=== PATIENT | male | born 1930 | race Hispanic/Latino ===

== ENCOUNTER 2017-05-12 12:21 | Outpatient (CLI) | payer MEDICARE, OTHER | END 2017-05-12 12:22 | disposition home or self-care (01) | LOC: VAS 12:21 | PROVIDERS: ATTEND Internal Medicine | DX: M79.661 Pain in right lower leg (principal); M79.662 Pain in left lower leg; M79.89 Other specified soft tissue disorders; I10 Essential (primary) hypertension | CPT/HCPCS: 93970 ==

== ENCOUNTER 2017-08-07 13:48 | Inpatient (IN) | payer MEDICARE, OTHER ==
--- NOTE | 2017-08-07 16:40 | Emergency Department Report ---
HPI - General Chief Complaint: Skin/Abscess/Foreign Body Time Seen by Provider: 08/07/17 16:21 - HPI HPI: Room 4 The patient is an 87-year-old male presenting with a chief complaint of skin rash. The patient states she's had a rash on his buttocks for the past 6 months. 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 The patient states she came in this morning because he noticed bleeding from the rash. Patient only complains of pain at his buttocks. Patient denies any fever. Also of note the patient states today he thought he "saw something" and when he went to reach for generalized "it wasn't there." Patient is unable to give specifics of what he thought he saw a little repeats "something." The patient states his only new medications include pain medication and prophylactic antibiotics from his recent left rotator cuff surgery. Patient is alert and oriented 4. Patient denies any other types of pain Location: Buttocks Duration: 6 Months, see above Quality: Pain Severity: Moderate Modifying factors: [see above] Context: [see above] Mode of transportation: Unknown ED Past Medical Hx - Past Medical History Hx Hypertension: Yes Additional medical history: PROSTATE CA STATUS POST RADIATION. Myeloproliferative disorder - Surgical History Hx Appendectomy: Yes Additional Surgical History: BILATERAL ROTATOR CUFF REPAIR - Family History Family history: no significant - Social History Smoking Status: Never Smoker Substance Use Type: None - Medications Home Medications: Home Medications Medication Instructions Recorded Confirmed Last Taken Type Carvedilol [Coreg] 25 mg PO BID 12/29/16 12/29/16 12/28/16 History Rosuvastatin (Nf) [Crestor] 5 mg PO DAILY 12/29/16 12/29/16 12/28/16 History Tamsulosin [Flomax] 0.4 mg PO QDAY 12/29/16 12/29/16 12/28/16 History Telmisartan [Micardis] 80 mg PO QDAY 12/29/16 12/29/16 12/28/16 History Aspirin EC [Aspirin Enteric Coated 325 mg PO QDAY #30 tablet. 12/30/16 Unknown Rx TAB] ED Review of Systems ROS: Stated complaint: SORES ON BUTTOCKS Other details as noted in HPI Constitutional: denies: fever Eyes: denies: eye pain ENT: denies: ear pain Cardiovascular: denies: chest pain Gastrointestinal: denies: abdominal pain Genitourinary: denies: dysuria Musculoskeletal: denies: back pain Skin: rash Neurological: denies: headache Psychiatric: visual hallucinations Physical Exam - Physical Exam Vital Signs: Vital Signs 08/07/17 08/07/17 08/07/17 15:24 15:30 15:45 Pulse Rate 72 70 69 Respiratory 12 15 8 L Rate Blood Pressure 145/60 141/55 O2 Sat by Pulse 99 100 100 Oximetry 08/07/17 16:00 Pulse Rate 72 Respiratory 10 L Rate Blood Pressure 137/60 O2 Sat by Pulse 99 Oximetry Physical Exam: GENERAL: The patient is well-developed well-nourished male lying on stretcher not appearing to be in acute distress. [] HEENT: Normocephalic. Atraumatic. Extraocular motions are intact. Patient has moist mucous membranes. NECK: Supple. No meningitic signs are noted. Trachea midline CHEST/LUNGS: Clear to auscultation. There is no respiratory distress noted. HEART/CARDIOVASCULAR: Regular. There is no tachycardia. There is no gallop rub or murmur. ABDOMEN: Abdomen is soft, nontender. Patient has normal bowel sounds. There is no abdominal distention. SKIN: There is a rash consistent with intertriginous candidiasis superimposed on a stage I sacral decubitus sore. There is no diaphoresis. NEURO: The patient is awake, alert, and oriented. The patient is cooperative. The patient has no focal neurologic deficits. The patient has normal speech. Cranial nerves II through XII grossly intact MUSCULOSKELETAL: The left shoulder is currently in an immobilizer secondary to recent surgery ED Course Vital Signs 08/07/17 08/07/17 08/07/17 15:24 15:30 15:45 Pulse Rate 72 70 69 Respiratory 12 15 8 L Rate Blood Pressure 145/60 141/55 O2 Sat by Pulse 99 100 100 Oximetry 08/07/17 16:00 Pulse Rate 72 Respiratory 10 L Rate Blood Pressure 137/60 O2 Sat by Pulse 99 Oximetry ED Medical Decision Making - Lab Data Result diagrams: 08/07/17 16:40 08/07/17 16:40 Laboratory Tests 08/07/17 08/07/17 08/07/17 16:40 16:40 16:40 WBC 2.3 L RBC 3.43 L Hgb 10.3 L Hct 30.8 L MCV 90 MCH 30 MCHC 33 RDW 16.6 H Plt Count 217 PT 14.4 INR 1.06 APTT 35.7 Sodium 140 Potassium 4.9 Chloride 99.1 Carbon Dioxide 29 Anion Gap 17 BUN 32 H Creatinine 0.9 Estimated GFR > 60 BUN/Creatinine Ratio 36 Glucose 120 H Calcium 8.8 Total Bilirubin 0.80 AST 24 ALT 16 Alkaline Phosphatase 68 Total Creatine Kinase 145 CK-MB (CK-2) 8.2 H CK-MB (CK-2) Rel Index 5.6 H Troponin T 0.050 H Total Protein 6.6 Albumin 3.7 L Albumin/Globulin Ratio 1.3 Triglycerides 75 Cholesterol 122 LDL Cholesterol Direct 73 HDL Cholesterol 34 L Cholesterol/HDL Ratio 3.58 - EKG Data -: EKG Interpreted by Me EKG shows normal: sinus rhythm Rate: normal - EKG Data When compared to previous EKG there are: previous EKG unavailable Interpretation: nonspecific ST-T wave andrzej (T-wave inversion in lead V2, 3, aVF, biphasic in lead V3) - Radiology Data Radiology results: report reviewed (CT head), image reviewed (CT head) FINAL REPORT EXAM: CT HEAD/BRAIN WO CON HISTORY: transient hallucinations TECHNIQUE: Standard unenhanced CT of the head at 5.0 millimeter axial increments. PRIORS: None. FINDINGS: The ventricular system is normal in size and configuration. There is moderate cerebral atrophy. There is no evidence for mass lesion, mass effect, midline shift, acute intracranial hemorrhage, or acute ischemia/ infarction. No evidence for acute skull fracture is seen. No abnormality in the overlying scalp soft tissues is seen. Visualized paranasal sinuses are clear. A few of the right mastoid air cells are opacified. IMPRESSION: Moderate cerebral atrophy. No acute intracranial process noted. Transcribed By: [facility] Dictated By: JULIANNE CEE MD Electronically Authenticated By: JULIANNE CEE MD Signed Date/Time: 08/07/171346 DD/ 46 - Differential Diagnosis intertriginous candidiasis, sacral decubitus ulcer, ICH, medication reactio Critical care attestation.: If time is entered above; I have spent that time in minutes in the direct care of this critically ill patient, excluding procedure time. ED Disposition Clinical Impression: Intertriginous candidiasis, Decubitus ulcer of sacral region, Elevated troponin , Dehydration, Visual hallucination Disposition: DC- OP ADMIT IP TO THIS HOSP Is pt being admited?: Yes Does the pt Need Aspirin: Yes Condition: Stable Referrals: PRIMARY CARE,MD [Primary Care Provider] - 3-5 Days Time of Disposition: 19:09 (hospitalist paged (Dr Toledo))
[2017-08-07 17:12] LABS: Hematocrit 30.8 % (35.5-45.6); Hemoglobin 10.3 gm/dl (11.8-15.2); Mean Corpuscular HGB Conc 33 % (32-34); Mean Corpuscular Hemoglobin 30 pg (28-32); Mean Corpuscular Volume 90 fl (84-94); Platelet Count 217 K/mm3 (140-440); Red Blood Count 3.43 M/mm3 (3.65-5.03); Red Cell Distribution Width 16.6 % (13.2-15.2)
[2017-08-07 17:23] LABS: White Blood Count 2.3 K/mm3 (4.5-11.0)
[2017-08-07 17:27] LABS: Creatine Kinase MB 8.2 ng/mL (0.0-4.0)
[2017-08-07 17:29] LABS: Alanine Aminotransferase 16 units/L (7-56); Albumin 3.7 g/dL (3.9-5); Albumin/Globulin Ratio 1.3 %; Alkaline Phosphatase 68 units/L (35-129); Anion Gap 17 mmol/L; BUN/Creatinine Ratio 36; Blood Urea Nitrogen 32 mg/dL (9-20); Calcium 8.8 mg/dL (8.4-10.2); Carbon Dioxide 29 mmol/L (22-30); Chloride 99.1 mmol/L (98-107); Creatine Kinase 145 units/L (55-170); Glucose 120 mg/dL (75-100); Potassium 4.9 mmol/L (3.6-5.0); Sodium 140 mmol/L (137-145); Total Protein 6.6 g/dL (6.3-8.2)
[2017-08-07 17:37] LABS: INR 1.06 (0.87-1.13)
[2017-08-07 17:38] LABS: Partial Thromboplastin Time 35.7 Sec. (24.2-36.6)
[2017-08-07 17:41] LABS: Cholesterol 122 mg/dL (50-199); HDL Cholesterol 34 mg/dL (40-59); LDL Cholesterol,Direct 73 mg/dL (50-130); Triglycerides 75 mg/dL (2-149)
--- NOTE | 2017-08-07 17:50 | Cat Scan Report ---
FINAL REPORT EXAM: CT HEAD/BRAIN WO CON HISTORY: transient hallucinations TECHNIQUE: Standard unenhanced CT of the head at 5.0 millimeter axial increments. PRIORS: None. FINDINGS: The ventricular system is normal in size and configuration. There is moderate cerebral atrophy. There is no evidence for mass lesion, mass effect, midline shift, acute intracranial hemorrhage, or acute ischemia/ infarction. No evidence for acute skull fracture is seen. No abnormality in the overlying scalp soft tissues is seen. Visualized paranasal sinuses are clear. A few of the right mastoid air cells are opacified. IMPRESSION: Moderate cerebral atrophy. No acute intracranial process noted.
[2017-08-07 18:07] LABS: Basophils % (Manual) 0 % (0.0-1.8); Blastocytes % (Manual) 0 %; Eosinophils % (Manual) 0 % (0.0-4.3)
[2017-08-07 18:08] LABS: Anisocytosis 2+; Large Platelets Few; Platelet Estimate Consistent w Auto
[2017-08-07 18:09] LABS: Diff Status Complete; Elliptocytes Few; Ovalocytes Rare
[2017-08-07] MEDS ORDERED: NACL 0.9% 1000 ML 1,000 ML IV ONE (18:28)
[2017-08-07] MEDS ORDERED: ASPIRIN PO ONE (18:53)
[2017-08-07 20:27] LABS: Bilirubin,Urine NEG (Negative); Blood,Urine SM (Negative); Ketones,Urine NEG (Negative); Leukocyte Esterase,Urine NEG (Negative); Mucus,Urine FEW /HPF; Nitrite,Urine NEG (Negative); Urobilinogen,Urine < 2.0 mg/dL (<2.0)
[2017-08-07] MEDS ORDERED: MILK OF MAGNESIA PO PRN (22:52)
[2017-08-07] MEDS ORDERED: PERCOCET 5/325 PO PRN (22:52)
[2017-08-07] MEDS ORDERED: TYLENOL PO PRN (22:52)
[2017-08-07] MEDS ORDERED: DULCOLAX PR PRN (22:52)
[2017-08-07] MEDS ORDERED: ZOFRAN IV PRN (22:52)
--- NOTE | 2017-08-07 22:55 | History and Physical Report ---
History of Present Illness Date of examination: 08/07/17 Date of admission: 08/07/17 19:45 History of present illness: 87-year-old man with a history of myeloproliferative disease, hypertension, prostate cancer, status post rotator cuff surgery 1 week ago because emergency room because he had a rash in groin and buttock area. He was found to have elevated troponin and is being admitted for further workup patient is asymptomatic Review Of Systems: Constitutional: no weight loss Ears, eyes, nose, mouth and throat: no nasal congestion, no nasal discharge, no sinus pressure, blurry vision, diplopia Neck: No neck pain or rigidity. Cardiovascular: no chest pain, orthopnea, palpitations Respiratory: No shortness of breath, cough Gastrointestinal: no abdominal pain, hematochezia Genitourinary : no dysuria, frequency , hematuria Musculoskeletal: no muscle ache Integumentary: no rash, no pruritis Neurological: no parathesias, focal weakness Endocrine: no cold or heat intolerance, no polyuria or polydipsia Hematologic/Lymphatic: no easy bruising, no easy bleeding, no gland swelling Allergic/Immunologic: no urticaria, no angioedema. PAST MEDICAL HISTORY:myeloproliferative disease, hypertension, prostate cancer, PAST SURGICAL HISTORY: Rotator cuff 2, appendicectomy FAMILY HISTORY: Hypertension SOCIAL HISTORY: Denies alcohol, tobacco, drugs Medications and Allergies Allergies Allergy/AdvReac Type Severity Reaction Status Date / Time No Known Allergies Allergy Verified 12/29/16 08:48 Home Medications Medication Instructions Recorded Confirmed Last Taken Type Carvedilol [Coreg] 25 mg PO BID 12/29/16 08/07/17 12/28/16 History Rosuvastatin (Nf) [Crestor] 5 mg PO DAILY 12/29/16 08/07/17 12/28/16 History Tamsulosin [Flomax] 0.4 mg PO QDAY 12/29/16 08/07/17 12/28/16 History Telmisartan [Micardis] 80 mg PO QDAY 12/29/16 08/07/17 12/28/16 History Amlodipine Besylate [Norvasc] 5 mg PO QDAY 08/07/17 08/07/17 Unknown History Aspirin [Adult Low Dose Aspirin EC] 81 mg PO DAILY 08/07/17 08/07/17 Unknown History Ketorolac [Toradol] 10 mg PO BID PRN 08/07/17 08/07/17 Unknown History Multivit-Min/FA/Lycopen/Lutein 1 each PO QDAY 08/07/17 08/07/17 Unknown History [Centrum Silver Men Tablet] traMADol [Ultram 50 MG tab] 50 mg PO Q4HR PRN 08/07/17 08/07/17 Unknown History Miconazole 2% [Monistat-Derm] 1 applic TP Q12HR #1 tube 08/09/17 Unknown Rx Active Meds: Active Medications Acetaminophen (Tylenol) 650 mg PO Q4H PRN PRN Reason: Pain MILD(1-3)/Fever >100.5/GRIFFITHS Bisacodyl (Dulcolax) 10 mg MD QDAY PRN PRN Reason: Constipation unrelieved by MOM Sodium Chloride (Nacl 0.9% 1000 Ml) 1,000 mls @ 125 mls/hr IV ONCE ONE Stop: 08/08/17 02:27 Last Admin: 08/07/17 19:03 Dose: 125 mls/hr Sodium Chloride (Nacl 0.45% 1000 Ml) 1,000 mls @ 75 mls/hr IV DIRECT DANNIE Magnesium Hydroxide (Milk Of Magnesia) 30 ml PO Q4H PRN PRN Reason: Constipation Ondansetron HCl (Zofran) 4 mg IV Q8H PRN PRN Reason: N/V unrelieved by Reglan Oxycodone/Acetaminophen (Percocet 5/325) 1 tab PO Q6H PRN PRN Reason: Pain, Moderate (4-6) Exam - Physical Exam Narrative exam: Gen. appearance: Patient lying in bed in no acute distress HEENT: Normocephalic/atraumatic, pupils equal round reactive to light, extra alkaline movement intact, no scleral icterus, no JVD or thyromegaly or nodule, neck is supple, mucous membrane moist, no erythema or exudate Heart: S1-S2, regular rate and rhythm Lungs: Clear to auscultation bilateral breathing comfortable Abdomen: Positive bowel sounds, nontender, nondistended, no organomegaly Extremities: No edema, cyanosis, clubbing Neuro:: Oriented 3 , cranial nerves II-12 intact, speech, motor intact Skin: No rash, nodules, warm dry - Constitutional Vitals: Temp Pulse Resp BP Pulse Ox 79 17 151/58 98 08/07/17 20:30 08/07/17 20:30 08/07/17 20:30 08/07/17 20:30 Results - Labs CBC & Chem 7: 08/08/17 04:28 08/08/17 04:28 Labs: Abnormal lab results 08/07/17 08/07/17 08/07/17 Range/Units 14:05 16:40 16:40 WBC 2.3 L (4.5-11.0) K/mm3 RBC 3.43 L (3.65-5.03) M/mm3 Hgb 10.3 L (11.8-15.2) gm/dl Hct 30.8 L (35.5-45.6) % RDW 16.6 H (13.2-15.2) % Seg Neuts % (Manual) 73.0 H (40.0-70.0) % Seg Neutrophils # Man 1.7 L (1.8-7.7) K/mm3 Lymphocytes # (Manual) 0.5 L (1.2-5.4) K/mm3 BUN 32 H (9-20) mg/dL Glucose 120 H (75-100) mg/dL CK-MB (CK-2) 8.2 H (0.0-4.0) ng/mL CK-MB (CK-2) Rel Index 5.6 H (0-4) Troponin T 0.050 H (0.00-0.029) ng/mL Albumin 3.7 L (3.9-5) g/dL HDL Cholesterol 34 L (40-59) mg/dL Urine WBC (Auto) 16.0 H (0.0-6.0) /HPF - Imaging and Cardiology CT Scan - head: report reviewed Assessment and Plan Assessment Dehydration Elevated troponin Candidiasis of the skin Myeloproliferative disease Hypertension Prostate cancer Plan Admit to medicine Start IV fluids, check cardiac enzymes, echo, consult cardiology Objective her blood pressure medication DVT prophylaxis, start barrier cream
[2017-08-08] MEDS: NACL 0.45% 1000 ML 1,000 ML IV SCH (02:53)
[2017-08-08 05:13] LABS: Hematocrit 27.9 % (35.5-45.6); Hemoglobin 9.3 gm/dl (11.8-15.2); Mean Corpuscular HGB Conc 34 % (32-34); Mean Corpuscular Hemoglobin 30 pg (28-32); Mean Corpuscular Volume 90 fl (84-94); Platelet Count 201 K/mm3 (140-440); Red Blood Count 3.11 M/mm3 (3.65-5.03); Red Cell Distribution Width 16.4 % (13.2-15.2); White Blood Count 2.5 K/mm3 (4.5-11.0)
[2017-08-08 05:34] LABS: Anion Gap 17 mmol/L; BUN/Creatinine Ratio 26; Blood Urea Nitrogen 21 mg/dL (9-20); Calcium 8.6 mg/dL (8.4-10.2); Carbon Dioxide 25 mmol/L (22-30); Chloride 105.4 mmol/L (98-107); Creatine Kinase MB 7.2 ng/mL (0.0-4.0); Glucose 102 mg/dL (75-100); Potassium 4.2 mmol/L (3.6-5.0); Sodium 143 mmol/L (137-145)
[2017-08-08 06:29] LABS: Basophils % (Manual) 0 % (0.0-1.8); Blastocytes % (Manual) 0 %
[2017-08-08 06:31] LABS: Anisocytosis 1+; Diff Status Complete; Platelet Estimate Consistent w Auto
[2017-08-08] MEDS ORDERED: ULTRAM PO PRN (10:00)
[2017-08-08] MEDS ORDERED: NON-FORMULARY (Rosuvastatin (Nf) 5 MG) PO SCH (10:00)
[2017-08-08] MEDS ORDERED: NON-FORMULARY (Telmisartan [Micardis] 80 MG) PO SCH (10:00)
--- NOTE | 2017-08-08 10:27 | Progress Note ---
Hospitalist Physical - Constitutional Vitals: Temp Pulse Resp BP Pulse Ox 97.8 F 76 20 168/65 98 08/08/17 07:55 08/08/17 07:55 08/08/17 07:55 08/08/17 07:55 08/08/17 07:55 Results - Labs CBC & Chem 7: 08/08/17 04:28 08/08/17 04:28 Labs: Laboratory Last Values WBC 2.5 K/mm3 (4.5-11.0) L 08/08/17 04:28 RBC 3.11 M/mm3 (3.65-5.03) L 08/08/17 04:28 Hgb 9.3 gm/dl (11.8-15.2) L 08/08/17 04:28 Hct 27.9 % (35.5-45.6) L 08/08/17 04:28 MCV 90 fl (84-94) 08/08/17 04:28 MCH 30 pg (28-32) 08/08/17 04:28 MCHC 34 % (32-34) 08/08/17 04:28 RDW 16.4 % (13.2-15.2) H 08/08/17 04:28 Plt Count 201 K/mm3 (140-440) 08/08/17 04:28 Add Manual Diff Complete 08/08/17 04:28 Total Counted 100 08/08/17 04:28 Seg Neuts % (Manual) 61.0 % (40.0-70.0) 08/08/17 04:28 Band Neutrophils % 1.0 % 08/08/17 04:28 Lymphocytes % (Manual) 31.0 % (13.4-35.0) 08/08/17 04:28 Reactive Lymphs % (Man) 0 % 08/08/17 04:28 Monocytes % (Manual) 4.0 % (0.0-7.3) 08/08/17 04:28 Eosinophils % (Manual) 3.0 % (0.0-4.3) 08/08/17 04:28 Basophils % (Manual) 0 % (0.0-1.8) 08/08/17 04:28 Metamyelocytes % 0 % 08/08/17 04:28 Myelocytes % 0 % 08/08/17 04:28 Promyelocytes % 0 % 08/08/17 04:28 Blast Cells % 0 % 08/08/17 04:28 Nucleated RBC % Not Reportable 08/08/17 04:28 Seg Neutrophils # Man 1.5 K/mm3 (1.8-7.7) L 08/08/17 04:28 Band Neutrophils # 0.0 K/mm3 08/08/17 04:28 Lymphocytes # (Manual) 0.8 K/mm3 (1.2-5.4) L 08/08/17 04:28 Abs React Lymphs (Man) 0.0 K/mm3 08/08/17 04:28 Monocytes # (Manual) 0.1 K/mm3 (0.0-0.8) 08/08/17 04:28 Eosinophils # (Manual) 0.1 K/mm3 (0.0-0.4) 08/08/17 04:28 Basophils # (Manual) 0.0 K/mm3 (0.0-0.1) 08/08/17 04:28 Metamyelocytes # 0.0 K/mm3 08/08/17 04:28 Myelocytes # 0.0 K/mm3 08/08/17 04:28 Promyelocytes # 0.0 K/mm3 08/08/17 04:28 Blast Cells # 0.0 K/mm3 08/08/17 04:28 WBC Morphology Not Reportable 08/08/17 04:28 Hypersegmented Neuts Not Reportable 08/08/17 04:28 Hyposegmented Neuts Not Reportable 08/08/17 04:28 Hypogranular Neuts Not Reportable 08/08/17 04:28 Smudge Cells Not Reportable 08/08/17 04:28 Toxic Granulation Not Reportable 08/08/17 04:28 Toxic Vacuolation Not Reportable 08/08/17 04:28 Dohle Bodies Not Reportable 08/08/17 04:28 Pelger-Huet Anomaly Not Reportable 08/08/17 04:28 Gloria Rods Not Reportable 08/08/17 04:28 Platelet Estimate Consistent w auto 08/08/17 04:28 Clumped Platelets Not Reportable 08/08/17 04:28 Plt Clumps, EDTA Not Reportable 08/08/17 04:28 Large Platelets Not Reportable 08/08/17 04:28 Giant Platelets Not Reportable 08/08/17 04:28 Platelet Satelliting Not Reportable 08/08/17 04:28 Plt Morphology Comment Not Reportable 08/08/17 04:28 RBC Morphology Not Reportable 08/08/17 04:28 Dimorphic RBCs Not Reportable 08/08/17 04:28 Polychromasia Not Reportable 08/08/17 04:28 Hypochromasia Not Reportable 08/08/17 04:28 Poikilocytosis Not Reportable 08/08/17 04:28 Anisocytosis 1+ 08/08/17 04:28 Microcytosis Not Reportable 08/08/17 04:28 Macrocytosis Not Reportable 08/08/17 04:28 Spherocytes Not Reportable 08/08/17 04:28 Pappenheimer Bodies Not Reportable 08/08/17 04:28 Sickle Cells Not Reportable 08/08/17 04:28 Target Cells Not Reportable 08/08/17 04:28 Tear Drop Cells Not Reportable 08/08/17 04:28 Ovalocytes Not Reportable 08/08/17 04:28 Helmet Cells Not Reportable 08/08/17 04:28 [place] Bodies Not Reportable 08/08/17 04:28 Bassett Rings Not Reportable 08/08/17 04:28 Agnieszka Cells Not Reportable 08/08/17 04:28 Bite Cells Not Reportable 08/08/17 04:28 Crenated Cell Not Reportable 08/08/17 04:28 Elliptocytes Not Reportable 08/08/17 04:28 Acanthocytes (Spur) Not Reportable 08/08/17 04:28 Rouleaux Not Reportable 08/08/17 04:28 Hemoglobin C Crystals Not Reportable 08/08/17 04:28 Schistocytes Not Reportable 08/08/17 04:28 Malaria parasites Not Reportable 08/08/17 04:28 Robbin Bodies Not Reportable 08/08/17 04:28 Hem Pathologist Commnt No 08/08/17 04:28 PT 14.4 Sec. (12.2-14.9) 08/07/17 16:40 INR 1.06 (0.87-1.13) 08/07/17 16:40 APTT 35.7 Sec. (24.2-36.6) 08/07/17 16:40 Sodium 143 mmol/L (137-145) 08/08/17 04:28 Potassium 4.2 mmol/L (3.6-5.0) 08/08/17 04:28 Chloride 105.4 mmol/L (98-107) 08/08/17 04:28 Carbon Dioxide 25 mmol/L (22-30) 08/08/17 04:28 Anion Gap 17 mmol/L 08/08/17 04:28 BUN 21 mg/dL (9-20) H 08/08/17 04:28 Creatinine 0.8 mg/dL (0.8-1.5) 08/08/17 04:28 Estimated GFR > 60 ml/min 08/08/17 04:28 BUN/Creatinine Ratio 26 % 08/08/17 04:28 Glucose 102 mg/dL (75-100) H 08/08/17 04:28 Calcium 8.6 mg/dL (8.4-10.2) 08/08/17 04:28 Total Bilirubin 0.80 mg/dL (0.1-1.2) 08/07/17 16:40 AST 24 units/L (5-40) 08/07/17 16:40 ALT 16 units/L (7-56) 08/07/17 16:40 Alkaline Phosphatase 68 units/L (35-129) 08/07/17 16:40 Total Creatine Kinase 129 units/L (55-170) 08/08/17 04:28 CK-MB (CK-2) 7.2 ng/mL (0.0-4.0) H 08/08/17 04:28 CK-MB (CK-2) Rel Index 5.5 (0-4) H 08/08/17 04:28 Troponin T 0.051 ng/mL (0.00-0.029) H 08/08/17 04:28 Total Protein 6.6 g/dL (6.3-8.2) 08/07/17 16:40 Albumin 3.7 g/dL (3.9-5) L 08/07/17 16:40 Albumin/Globulin Ratio 1.3 % 08/07/17 16:40 Triglycerides 75 mg/dL (2-149) 08/07/17 16:40 Cholesterol 122 mg/dL (50-199) 08/07/17 16:40 LDL Cholesterol Direct 73 mg/dL (50-130) 08/07/17 16:40 HDL Cholesterol 34 mg/dL (40-59) L 08/07/17 16:40 Cholesterol/HDL Ratio 3.58 % 08/07/17 16:40 Urine Color Yellow (Yellow) 08/07/17 14:05 Urine Turbidity Clear (Clear) 08/07/17 14:05 Urine pH 6.0 (5.0-7.0) 08/07/17 14:05 Ur Specific [place] 1.021 (1.003-1.030) 08/07/17 14:05 Urine Protein 30 mg/dl mg/dL (Negative) 08/07/17 14:05 Urine Glucose (UA) Neg mg/dL (Negative) 08/07/17 14:05 Urine Ketones Neg mg/dL (Negative) 08/07/17 14:05 Urine Blood Sm (Negative) 08/07/17 14:05 Urine Nitrite Neg (Negative) 08/07/17 14:05 Urine Bilirubin Neg (Negative) 08/07/17 14:05 Urine Urobilinogen < 2.0 mg/dL (<2.0) 08/07/17 14:05 Ur Leukocyte Esterase Neg (Negative) 08/07/17 14:05 Urine WBC (Auto) 16.0 /HPF (0.0-6.0) H 08/07/17 14:05 Urine RBC (Auto) 18.0 /HPF (0.0-6.0) 08/07/17 14:05 U Epithel Cells (Auto) < 1.0 /HPF (0-13.0) 08/07/17 14:05 Urine Mucus Few /HPF 08/07/17 14:05
[2017-08-08 10:53] LABS: Creatine Kinase MB 6.5 ng/mL (0.0-4.0)
--- NOTE | 2017-08-08 11:31 | Consultation ---
History of Present Illness Consult date: 08/08/17 Consult reason: abnormal cardiac enzymes History of present illness: This is an 87yr old male who presented with complaints of skin rash/ulcer of buttocks. Initial workup in the emergency department included cardiac enzymes that resulted a normal creatine kinase of 145 and relative index of 5.6. Troponin of 0.050. Patient has no chest pain or shortness of breath. His ECG is a sinus rhythm, no acute ischemic changes. Cardiology consultation was requested for mild nonspecific elevated troponin. Medications and Allergies Allergies Allergy/AdvReac Type Severity Reaction Status Date / Time No Known Allergies Allergy Verified 12/29/16 08:48 Home Medications Medication Instructions Recorded Confirmed Last Taken Type Carvedilol [Coreg] 25 mg PO BID 12/29/16 08/07/17 12/28/16 History Rosuvastatin (Nf) [Crestor] 5 mg PO DAILY 12/29/16 08/07/17 12/28/16 History Tamsulosin [Flomax] 0.4 mg PO QDAY 12/29/16 08/07/17 12/28/16 History Telmisartan [Micardis] 80 mg PO QDAY 12/29/16 08/07/17 12/28/16 History Amlodipine Besylate [Norvasc] 5 mg PO QDAY 08/07/17 08/07/17 Unknown History Aspirin [Adult Low Dose Aspirin EC] 81 mg PO DAILY 08/07/17 08/07/17 Unknown History Ketorolac [Toradol] 10 mg PO BID PRN 08/07/17 08/07/17 Unknown History Multivit-Min/FA/Lycopen/Lutein 1 each PO QDAY 08/07/17 08/07/17 Unknown History [Centrum Silver Men Tablet] traMADol [Ultram] 50 mg PO Q4HR PRN 08/07/17 08/07/17 Unknown History Active Meds: Active Medications Acetaminophen (Tylenol) 650 mg PO Q4H PRN PRN Reason: Pain MILD(1-3)/Fever >100.5/GRIFFITHS Amlodipine Besylate (Norvasc) 5 mg PO QDAY [facility] Aspirin (Halfprin Ec) 81 mg PO DAILY DANNIE Bisacodyl (Dulcolax) 10 mg AL QDAY PRN PRN Reason: Constipation unrelieved by MOM Carvedilol (Coreg) 25 mg PO BID [facility] Sodium Chloride (Nacl 0.45% 1000 Ml) 1,000 mls @ 75 mls/hr IV DIRECT DANNIE Last Admin: 08/08/17 02:53 Dose: 75 mls/hr Magnesium Hydroxide (Milk Of Magnesia) 30 ml PO Q4H PRN PRN Reason: Constipation Miscellaneous Medication (Rosuvastatin (Nf)) 5 mg PO DAILY DANNIE Miscellaneous Medication (Telmisartan [Micardis]) 80 mg PO QDAY DANNIE Ondansetron HCl (Zofran) 4 mg IV Q8H PRN PRN Reason: N/V unrelieved by Reglan Oxycodone/Acetaminophen (Percocet 5/325) 1 tab PO Q6H PRN PRN Reason: Pain, Moderate (4-6) Tamsulosin HCl (Flomax) 0.4 mg PO QDAY DANNIE Tramadol HCl (Ultram) 50 mg PO Q4HR PRN PRN Reason: Pain Physical Examination Vital Signs Pulse Resp Pulse Ox 72 12 99 08/07/17 15:24 08/07/17 15:24 08/07/17 15:24 General appearance: no acute distress Cardiac: Positive: Reg Rate and Rhythm Results 08/08/17 04:28 08/08/17 04:28 Cardiac Enzymes 08/07/17 08/08/17 08/08/17 Range/Units 16:40 04:28 10:14 AST 24 (5-40) units/L CK-MB (CK-2) 8.2 H 7.2 H 6.5 H (0.0-4.0) ng/mL Coagulation 08/07/17 Range/Units 16:40 PT 14.4 (12.2-14.9) Sec. INR 1.06 (0.87-1.13) APTT 35.7 (24.2-36.6) Sec. Lipids 08/07/17 Range/Units 16:40 Triglycerides 75 (2-149) mg/dL Cholesterol 122 (50-199) mg/dL HDL Cholesterol 34 L (40-59) mg/dL Cholesterol/HDL Ratio 3.58 % CBC 08/07/17 08/08/17 Range/Units 16:40 04:28 WBC 2.3 L 2.5 L (4.5-11.0) K/mm3 RBC 3.43 L 3.11 L (3.65-5.03) M/mm3 Hgb 10.3 L 9.3 L (11.8-15.2) gm/dl Hct 30.8 L 27.9 L (35.5-45.6) % Plt Count 217 201 (140-440) K/mm3 Comprehensive Metabolic Panel 08/07/17 08/08/17 Range/Units 16:40 04:28 Sodium 140 143 (137-145) mmol/L Potassium 4.9 4.2 (3.6-5.0) mmol/L Chloride 99.1 105.4 (98-107) mmol/L Carbon Dioxide 29 25 (22-30) mmol/L BUN 32 H 21 H (9-20) mg/dL Creatinine 0.9 0.8 (0.8-1.5) mg/dL Glucose 120 H 102 H (75-100) mg/dL Calcium 8.8 8.6 (8.4-10.2) mg/dL AST 24 (5-40) units/L ALT 16 (7-56) units/L Alkaline Phosphatase 68 (35-129) units/L Total Protein 6.6 (6.3-8.2) g/dL Albumin 3.7 L (3.9-5) g/dL Assessment and Plan - Patient Problems (1) Elevated troponin Current Visit: Yes Status: Acute Plan to address problem: nonspecific mild elevated troponin patient denies chest pain no acute ischemic changes on his ECG EF 55-60% on echocardiogram 12/2016 No further cardiac workup indicated. (2) Decubitus ulcer of sacral region Current Visit: Yes Status: Acute
[2017-08-08] MEDS ORDERED: APRESOLINE IV PRN (12:00)
[2017-08-08] MEDS: HALFPRIN EC PO SCH (13:26)
[2017-08-08] MEDS: FLOMAX PO SCH (13:27)
[2017-08-08] MEDS: COREG PO SCH ×2 (13:28→22:27)
[2017-08-08] MEDS: NORVASC PO SCH (13:28)
[2017-08-08] MEDS: COZAAR PO SCH (16:27)
[2017-08-08] MEDS: MONISTAT-DERM TP SCH (22:28)
[2017-08-08] MEDS: ZINC OXIDE TP SCH (22:28)
[2017-08-09] MEDS: NACL 0.45% 1000 ML 1,000 ML IV SCH (05:33)
[2017-08-09 07:34] VITALS: BP 133/55
--- NOTE | 2017-08-09 10:33 | Progress Note ---
Assessment and Plan Sacral Rash Recent left shoulder surgery Borderline nonspecific troponin pt denies chest pain ECG is normal sinus rhythm with right bundle branch block but no ST or T- wave changes. EF 55-60% on echocardiogram 12/2016 No cardiac workup indicated. Subjective Date of service: 08/09/17 Interval history: No cardiac complaints. Objective Vital Signs Temp Pulse Resp BP Pulse Ox 08/09/17 07:31 98.5 F 66 18 133/55 96 08/09/17 07:30 20 08/09/17 06:30 20 08/09/17 05:00 98.3 F 65 18 143/49 95 08/08/17 22:27 76 124/55 08/08/17 22:00 76 98 08/08/17 19:56 98.4 F 76 20 124/55 96 08/08/17 16:27 74 156/62 08/08/17 15:38 98 08/08/17 15:12 98.4 F 74 20 156/62 96 08/08/17 13:28 76 168/65 - Physical Examination General: No Apparent Distress Cardiac: Positive: Reg Rate and Rhythm Neuro: Positive: Grossly Intact - Labs and Meds Cardiac Enzymes 08/08/17 Range/Units 10:14 CK-MB (CK-2) 6.5 H (0.0-4.0) ng/mL
[2017-08-09] MEDS: NORVASC PO SCH (11:15)
[2017-08-09] MEDS: FLOMAX PO SCH (11:15)
[2017-08-09] MEDS: HALFPRIN EC PO SCH (11:15)
[2017-08-09] MEDS: COZAAR PO SCH (11:16)
[2017-08-09] MEDS: COREG PO SCH (11:16)
[2017-08-09] MEDS: ZINC OXIDE TP SCH (11:17)
[2017-08-09] MEDS: MONISTAT-DERM TP SCH (11:17)
--- NOTE | 2017-08-09 13:00 | Discharge Summary ---
Providers - Providers Date of Admission: 08/07/17 19:45 Date of discharge: 08/09/17 Attending physician: CONRAD STODDARD 08/07/17 22:52 Consult to Physician [CONS] Routine Consulting Provider: LOYD GORDILLO Reason For Exam: ab ce Place consult to:: mere Notified:: yes If yes, spoke with:: mere Time called:: 08:54 Comment:: margarita 08/08/17 11:24 Occupational Therapy Evaluate and Treat [CONS] Routine Comment: Reason For Exam: sp L shoulder surgery Physical Therapy Evaluation and Treat [CONS] Routine Comment: Reason For Exam: debility 08/08/17 11:25 Consult to Wound/ET Nurse [CONS] Routine Reason For Exam: wound eval Primary care physician: ABSTRACTOR Hospitalization Condition: Stable Hospital course: 87-year-old man with a history of myeloproliferative disease, hypertension, prostate cancer, status post rotator cuff surgery 1 week ago because emergency room because he had a rash in groin and buttock area. To have elevated troponin and is being admitted for further workup patient is asymptomatic Diagnosis Diagnosis: Skin Bessy, gluteal/sacral area; he was given the used micronazole cream Right shoulder surgery Dehydration Hypertension Abnormal Cardiac enzymes per Dr. Hooks, [employer] Developer: Patient seen and examined Family at the bedside No cardiac complaints No events on tele Mo further cardiac work-up needed during this hospitalization Disposition: [id number] HOME UNDER HOME HL Time spent for discharge: 32 minutes Core Measure Documentation - Palliative Care Palliative Care/ Comfort Measures: Not Applicable - Core Measures Any of the following diagnoses?: none - VTE Discharge Requirements Deep Vein Thrombosis/Pulmonary Embolism Present on Admission: No Has pt received <5 days of overlap therapy or INR<2.0: No Anticoagulant overlap therapy prescribed at discharge: No Contraindication No Overlap Therapy order at DC: Not Indicated Exam - Physical Exam Narrative exam: GEN: WDWN, NAD, AWAKE, ALERT, ORIENTATED x 3 HEENT: NCAT, EOMI, PERRL, OP Clear NECK: supple, no adenopathy, no thyromegaly, no JVD CVS/HEART: RRR, NORMAL S1S2, NO JVD, pulses present bilaterally CHEST/LUNGS: CTA B, Symmetrical chest expansion, good air entry bilaterally GI/Abdomen: soft, NTND, good bowel sounds, no guarding or rebound /Bladder: no suprapubic tenderness, no CVA or paraspinal tenderness EXT/Skin: no c/c/e, obvious bessy appearing rash in the gluteal area MSK: FROM x 4 except right shoulder Neuro: CN 2-12 grossly intact, no new focal deficits Psych: calm - Constitutional Vitals: Temp Pulse Resp BP Pulse Ox 98.5 F 66 18 133/55 96 08/09/17 07:31 08/09/17 11:16 08/09/17 07:31 08/09/17 11:16 08/09/17 07:31 Plan Activity: other (no strenous activity until cleared by pcp and surgeon) Diet: low salt Follow up with: PRIMARY CAREMD [Primary Care Provider] - 3-5 Days
== END 2017-08-09 13:55 | disposition home or self-care (01) | DRG 607 ==
LOC: ED 13:48 → 2B-ACE 19:45
PROVIDERS: ADMIT Internal Medicine; ATTEND Internal Medicine
DX: B37.2 Candidiasis of skin and nail (principal); C94.6 Myelodysplastic disease, not elsewhere classified; R74.8 Abnormal levels of other serum enzymes; E86.0 Dehydration; I10 Essential (primary) hypertension; R44.1 Visual hallucinations; Z90.49 Acquired absence of other specified parts of digestive tract; Z82.49 Family history of ischemic heart disease and other diseases of the circulatory system; Z79.899 Other long term (current) drug therapy; Z85.46 Personal history of malignant neoplasm of prostate; Z79.82 Long term (current) use of aspirin; L89.151 Pressure ulcer of sacral region, stage 1
CPT/HCPCS: 36415; 70450; 80048; 80053; 80061; 81001; 82550; 82553; 82962; 84484; 85007; 85025; 85610; 85730; 87086; 93005; 93010; A6250; A9270-GY; G8978-GP; G8979-GP; G8987-GO; G8988-GO; J7030

== ENCOUNTER 2019-01-09 14:00 | Inpatient (IN) | payer MEDICARE, OTHER ==
[2019-01-09 16:26] LABS: Hematocrit 25.2 % (35.5-45.6); Hemoglobin 7.7 gm/dl (11.8-15.2); Mean Corpuscular HGB Conc 31 % (32-34); Mean Corpuscular Volume 82 fl (84-94); Platelet Count 273 K/mm3 (140-440); Red Blood Count 3.09 M/mm3 (3.65-5.03)
[2019-01-09 16:27] LABS: Albumin 2.5 g/dL (3.9-5); Calcium 8.5 mg/dL (8.4-10.2)
[2019-01-09 16:28] LABS: Red Cell Distribution Width 20.8 % (13.2-15.2)
[2019-01-09 17:22] LABS: Anisocytosis 1+; Basophils % (Manual) 0 % (0.0-1.8); Eosinophils % (Manual) 0 % (0.0-4.3); Hypochromasia 1+; Total Cells Counted 100
--- NOTE | 2019-01-09 20:44 | Emergency Department Report ---
- General Chief complaint: Weakness Stated complaint: WEAK LOW BLOOD Time Seen by Provider: 01/09/19 18:51 Source: patient, family Mode of arrival: Wheelchair Limitations: No Limitations - History of Present Illness Initial comments: Mr. Mendez is a 88 yo male with hx of TIA, HTN, myeloproliferative disorder, prostate cancer s/p radiation, new diagnosis of dementia who presents from the office of Dr. Reece with worsening anemia. He has been receiving infusions to address anemia. stated that Hgb was as low as 4 within the last month. He does not have any complaints but a "loss of power". Has had dark stools while on iron therapy according to . Carvedilol 12.5 mg BID Tamsulosin 0.4 mg qAM Folic Acid 1 mg qAM Iron 65 mg qAM Pedro Son [phone] Stacy [phone] Ortiz? CARYL Ramos MD Complaint: generalized weakness -: Gradual, week(s) (4) Location: generalized Severity: moderate Consistency: constant Worsens with: exertion Context: new medication, recent illness, history of similar Associated Symptoms: denies other symptoms - Related Data Home Medications Medication Instructions Recorded Confirmed Last Taken Carvedilol [Coreg] 25 mg PO BID 12/29/16 08/07/17 12/28/16 Rosuvastatin (Nf) [Crestor] 5 mg PO DAILY 12/29/16 08/07/17 12/28/16 Tamsulosin [Flomax] 0.4 mg PO QDAY 12/29/16 08/07/17 12/28/16 Telmisartan [Micardis] 80 mg PO QDAY 12/29/16 08/07/17 12/28/16 Amlodipine Besylate [Norvasc] 5 mg PO QDAY 08/07/17 08/07/17 Unknown Aspirin [Adult Low Dose Aspirin EC] 81 mg PO DAILY 08/07/17 08/07/17 Unknown Ketorolac [Toradol] 10 mg PO BID PRN 08/07/17 08/07/17 Unknown Multivit-Min/FA/Lycopen/Lutein 1 each PO QDAY 08/07/17 08/07/17 Unknown [Centrum Silver Men Tablet] traMADol [Ultram 50 MG tab] 50 mg PO Q4HR PRN 08/07/17 08/07/17 Unknown Previous Rx's Medication Instructions Recorded Last Taken Type Miconazole 2% [Monistat-Derm] 1 applic TP Q12HR #1 tube 08/09/17 Unknown Rx Allergies Allergy/AdvReac Type Severity Reaction Status Date / Time No Known Allergies Allergy Verified 01/09/19 14:02 ED Review of Systems ROS: Stated complaint: WEAK LOW BLOOD Other details as noted in HPI Comment: All other systems reviewed and negative Constitutional: malaise. denies: fever Gastrointestinal: denies: abdominal pain Neurological: denies: weakness, numbness, paresthesias ED Past Medical Hx - Past Medical History Previous Medical History?: Yes Hx Hypertension: Yes Additional medical history: PROSTATE CA STATUS POST RADIATION. Myelop roliferative disorder - Surgical History Hx Appendectomy: Yes Additional Surgical History: BILATERAL ROTATOR CUFF REPAIR - Social History Smoking Status: Never Smoker Substance Use Type: None - Medications Home Medications: Home Medications Medication Instructions Recorded Confirmed Last Taken Type Carvedilol [Coreg] 25 mg PO BID 12/29/16 08/07/17 12/28/16 History Rosuvastatin (Nf) [Crestor] 5 mg PO DAILY 12/29/16 08/07/17 12/28/16 History Tamsulosin [Flomax] 0.4 mg PO QDAY 12/29/16 08/07/17 12/28/16 History Telmisartan [Micardis] 80 mg PO QDAY 12/29/16 08/07/17 12/28/16 History Amlodipine Besylate [Norvasc] 5 mg PO QDAY 08/07/17 08/07/17 Unknown History Aspirin [Adult Low Dose Aspirin EC] 81 mg PO DAILY 08/07/17 08/07/17 Unknown History Ketorolac [Toradol] 10 mg PO BID PRN 08/07/17 08/07/17 Unknown History Multivit-Min/FA/Lycopen/Lutein 1 each PO QDAY 08/07/17 08/07/17 Unknown History [Centrum Silver Men Tablet] traMADol [Ultram 50 MG tab] 50 mg PO Q4HR PRN 08/07/17 08/07/17 Unknown History Miconazole 2% [Monistat-Derm] 1 applic TP Q12HR #1 tube 08/09/17 Unknown Rx ED Physical Exam - General Limitations: No Limitations General appearance: alert, in no apparent distress, other (pleasant elderly frail ) - Head Head exam: Present: atraumatic, normocephalic - Eye Eye exam: Present: normal appearance - ENT ENT exam: Present: mucous membranes moist - Neck Neck exam: Present: normal inspection - Respiratory Respiratory exam: Present: normal lung sounds bilaterally. Absent: respiratory distress, wheezes, rales, rhonchi - Cardiovascular Cardiovascular Exam: Present: regular rate, normal rhythm, normal heart sounds. Absent: bradycardia, tachycardia, systolic murmur, diastolic murmur, rubs, gallop - GI/Abdominal GI/Abdominal exam: Present: soft, normal bowel sounds. Absent: distended, tenderness, guarding, rebound - Rectal Rectal exam: Present: deferred - Extremities Exam Extremities exam: Present: normal inspection - Back Exam Back exam: Present: normal inspection - Neurological Exam Neurological exam: Present: alert, other (oriented to name and place situation) - Psychiatric Psychiatric exam: Present: normal affect, normal mood - Skin Skin exam: Present: warm, dry, intact. Absent: rash ED Course Vital Signs 01/09/19 01/09/19 14:47 18:35 Temperature 98.6 F Pulse Rate 75 72 Respiratory 19 16 Rate Blood Pressure 108/41 126/73 [Left] O2 Sat by Pulse 100 99 Oximetry ED Medical Decision Making - Lab Data Result diagrams: 01/09/19 15:36 01/09/19 15:36 - Medical Decision Making Mr. Mendez has hx of myeproliferative disorder presents with symptomatic anemia. I spoke with cold roll inspector Dr. Reece who recommended admission for more extensive workup and serial H&H's. Dr. Reece explained that he was unsure if myeloproliferative disorder with right diagnosis. Consequently, he desired further investigation. Admitted to the hospitalist service in stable condition Critical care attestation.: If time is entered above; I have spent that time in minutes in the direct care of this critically ill patient, excluding procedure time. ED Disposition Clinical Impression: Symptomatic anemia Disposition: OP ADMIT IP TO THIS HOSP Is pt being admited?: Yes Does the pt Need Aspirin: No Condition: Stable Referrals: ROMELIA ROTH MD [Primary Care Provider] - 3-5 Days
[2019-01-09] MEDS ORDERED: ZOFRAN IV PRN (21:41)
[2019-01-09] MEDS ORDERED: SODIUM CHLORIDE FLUSH SYRINGE 10 ML IV PRN (21:41)
[2019-01-09] MEDS ORDERED: TYLENOL PO PRN (21:41)
[2019-01-09] MEDS ORDERED: ULTRAM PO PRN (21:44)
--- NOTE | 2019-01-09 21:58 | History and Physical Report ---
<LJ RUSSELL - Last Filed: 01/09/19 21:59> History of Present Illness Date of examination: 01/09/19 Date of admission: 01/09/2019 Chief complaint: Generalized weakness History of present illness: Mr. Mendez is an 88-year-old male with history of prostate cancer (S/P radiation one year ago ), TIA, hypertension, and newly diagnosed dementia who was referred to [facility] ED by his pulp operator Dr. Reece With c/o of worsening anemia. 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 Patient has been receiving infusions to address his anemia. According to patient's patient hemoglobin has been as low as 4.0 within the last month. Patient also complains of generalized weakness and frequent falls. At baseline patient ambulates with walker. He states that even when using the walker he feels that his gait is unsteady. Admits to have been dark stools with iron supplementation. Denies dyspnea, cough, hemoptysis, headache fever, chills, recent sick contact. Past History Past Medical History: cancer (prostate cancer S/P radiation), hypertension, other (dementia, TIA) Past Surgical History: appendectomy, Other (bilateral rotator cuff) Social history: , lives with family Family history: no significant family history Medications and Allergies Allergies Allergy/AdvReac Type Severity Reaction Status Date / Time No Known Allergies Allergy Verified 01/09/19 14:02 Home Medications Medication Instructions Recorded Confirmed Last Taken Type Carvedilol [Coreg] 25 mg PO BID 12/29/16 08/07/17 12/28/16 History Rosuvastatin (Nf) [Crestor] 5 mg PO DAILY 12/29/16 08/07/17 12/28/16 History Tamsulosin [Flomax] 0.4 mg PO QDAY 12/29/16 08/07/17 12/28/16 History Telmisartan [Micardis] 80 mg PO QDAY 12/29/16 08/07/17 12/28/16 History Amlodipine Besylate [Norvasc] 5 mg PO QDAY 08/07/17 08/07/17 Unknown History Aspirin [Adult Low Dose Aspirin EC] 81 mg PO DAILY 08/07/17 08/07/17 Unknown History Ketorolac [Toradol] 10 mg PO BID PRN 08/07/17 08/07/17 Unknown History Multivit-Min/FA/Lycopen/Lutein 1 each PO QDAY 08/07/17 08/07/17 Unknown History [Centrum Silver Men Tablet] traMADol [Ultram 50 MG tab] 50 mg PO Q4HR PRN 08/07/17 08/07/17 Unknown History Miconazole 2% [Monistat-Derm] 1 applic TP Q12HR #1 tube 08/09/17 Unknown Rx Active Meds: Active Medications Acetaminophen (Tylenol) 650 mg PO Q4H PRN PRN Reason: Pain MILD(1-3)/Fever >100.5/GRIFFITHS Amlodipine Besylate (Norvasc) 5 mg PO QDAY [facility] Aspirin (Halfprin Ec) 81 mg PO DAILY [facility] Carvedilol (Coreg) 25 mg PO BID [facility] Docusate Sodium (Colace) 100 mg PO BID [facility] Ferrous Sulfate (Feosol) 325 mg PO ONCE ONE Stop: 01/09/19 21:51 Folic Acid (Folvite) 1 mg PO QDAY [facility] Miscellaneous Medication (Multivit-Min/Fa/Lycopen/Lutein [Centrum Silver Men Tablet]) 1 each PO QDAY [facility] Miscellaneous Medication (Rosuvastatin (Nf)) 5 mg PO DAILY [facility] Ondansetron HCl (Zofran) 4 mg IV Q8H PRN PRN Reason: Nausea And Vomiting Sodium Chloride (Sodium Chloride Flush Syringe 10 Ml) 10 ml IV BID [facility] Sodium Chloride (Sodium Chloride Flush Syringe 10 Ml) 10 ml IV PRN PRN PRN Reason: LINE FLUSH Tamsulosin HCl (Flomax) 0.4 mg PO QDAY [facility] Tramadol HCl (Ultram) 50 mg PO Q4HR PRN PRN Reason: Pain Review of Systems Constitutional: weight gain, no weight loss, no fever, no chills, no sweats Ears, nose, mouth and throat: decreased hearing, no tinnitis, no sinus pressure, no sinus pain Cardiovascular: no chest pain, no orthopnea, no palpitations, no edema, no lightheadedness, no shortness of breath Respiratory: no cough, no cough with sputum, no shortness of breath, no dyspnea on exertion Gastrointestinal: other (dark stool R/T iron supplementation), no abdominal pain, no nausea, no vomiting, no constipation Genitourinary Male: no urinary frequency, no urinary hesitancy, no nocturia Rectal: no pain, no incontinence, no bleeding Musculoskeletal: frequent falls, other (generalized weakness), no fractures Integumentary: no rash, no pruritis, no redness Neurological: weakness, no transient paralysis, no paralysis, no parathesias, no numbness Psychiatric: no anxiety, no suicidal ideation, no depression Endocrine: no polydipsia, no polyuria, no nocturia Hematologic/Lymphatic: no easy bruising, no easy bleeding Allergic/Immunologic: no wheezing Exam - Physical Exam Narrative exam: Physical exam General appearance: Present: No acute distress, alert, oriented 3 well- nourished older adult male - EENT Eyes: Present: PERRL, EOM intact ENT: hearing intact, good dentition - Neck Neck: Present: supple, normal ROM - Respiratory Respiratory effort: Non-labored Respiratory: Clear throughout - Cardiovascular Heart rate: 75 (bpm) Rhythm: regular Heart Sounds: Present: S1 & S2. Absent: rub, click - Extremities Extremities: no ischemia, pulses intact, ) - Peripheral Assessment Peripheral Pulses: within normal limits - Abdominal General gastrointestinal: soft, non-tender, normal bowel sounds - Integumentary Integumentary: Present: warm, dry - Musculoskeletal Musculoskeletal: generalized weakness - Psychiatric Psychiatric: cooperative - Constitutional Vitals: Temp Pulse Resp BP Pulse Ox 98.6 F 72 16 126/73 99 01/09/19 14:47 01/09/19 18:35 01/09/19 18:35 01/09/19 18:35 01/09/19 18:35 Results - Labs CBC & Chem 7: 01/09/19 15:36 01/09/19 15:36 Labs: Laboratory Last Values WBC 4.8 K/mm3 (4.5-11.0) 01/09/19 15:36 RBC 3.09 M/mm3 (3.65-5.03) L 01/09/19 15:36 Hgb 7.7 gm/dl (11.8-15.2) L 01/09/19 15:36 Hct 25.2 % (35.5-45.6) L 01/09/19 15:36 MCV 82 fl (84-94) L 01/09/19 15:36 MCH 25 pg (28-32) L 01/09/19 15:36 MCHC 31 % (32-34) L 01/09/19 15:36 RDW 20.8 % (13.2-15.2) H 01/09/19 15:36 Plt Count 273 K/mm3 (140-440) 01/09/19 15:36 Add Manual Diff Complete 01/09/19 15:36 Total Counted 100 01/09/19 15:36 Seg Neuts % (Manual) 60.0 % (40.0-70.0) 01/09/19 15:36 0 % 01/09/19 15:36 30.0 % (13.4-35.0) 01/09/19 15:36 Reactive Lymphs % (Man) 0 % 01/09/19 15:36 10.0 % (0.0-7.3) H 01/09/19 15:36 0 % (0.0-4.3) 01/09/19 15:36 0 % (0.0-1.8) 01/09/19 15:36 0 % 01/09/19 15:36 0 % 01/09/19 15:36 0 % 01/09/19 15:36 0 % 01/09/19 15:36 Nucleated RBC % Not Reportable 01/09/19 15:36 Seg Neutrophils # Man 2.9 K/mm3 (1.8-7.7) 01/09/19 15:36 Band Neutrophils # 0.0 K/mm3 01/09/19 15:36 1.4 K/mm3 (1.2-5.4) 01/09/19 15:36 Abs React Lymphs (Man) 0.0 K/mm3 01/09/19 15:36 0.5 K/mm3 (0.0-0.8) 01/09/19 15:36 0.0 K/mm3 (0.0-0.4) 01/09/19 15:36 0.0 K/mm3 (0.0-0.1) 01/09/19 15:36 0.0 K/mm3 01/09/19 15:36 0.0 K/mm3 01/09/19 15:36 0.0 K/mm3 01/09/19 15:36 Blast Cells # 0.0 K/mm3 01/09/19 15:36 WBC Morphology Not Reportable 01/09/19 15:36 WBC Morphology TNR 01/09/19 15:36 Hypersegmented Neuts Not Reportable 01/09/19 15:36 Hyposegmented Neuts Not Reportable 01/09/19 15:36 Hypogranular Neuts Not Reportable 01/09/19 15:36 Not Reportable 01/09/19 15:36 Not Reportable 01/09/19 15:36 Not Reportable 01/09/19 15:36 Not Reportable 01/09/19 15:36 Not Reportable 01/09/19 15:36 Not Reportable 01/09/19 15:36 Not Reportable 01/09/19 15:36 Not Reportable 01/09/19 15:36 Plt Clumps, EDTA Not Reportable 01/09/19 15:36 Not Reportable 01/09/19 15:36 Not Reportable 01/09/19 15:36 Not Reportable 01/09/19 15:36 Plt Morphology Comment Not Reportable 01/09/19 15:36 RBC Morphology Not Reportable 01/09/19 15:36 Dimorphic RBCs Not Reportable 01/09/19 15:36 Not Reportable 01/09/19 15:36 1+ 01/09/19 15:36 Not Reportable 01/09/19 15:36 1+ 01/09/19 15:36 Not Reportable 01/09/19 15:36 Not Reportable 01/09/19 15:36 Not Reportable 01/09/19 15:36 Not Reportable 01/09/19 15:36 Not Reportable 01/09/19 15:36 Not Reportable 01/09/19 15:36 Not Reportable 01/09/19 15:36 Not Reportable 01/09/19 15:36 Not Reportable 01/09/19 15:36 Not Reportable 01/09/19 15:36 Not Reportable 01/09/19 15:36 Not Reportable 01/09/19 15:36 Not Reportable 01/09/19 15:36 Not Reportable 01/09/19 15:36 Not Reportable 01/09/19 15:36 Acanthocytes (Spur) Not Reportable 01/09/19 15:36 Rouleaux Not Reportable 01/09/19 15:36 Not Reportable 01/09/19 15:36 Not Reportable 01/09/19 15:36 Not Reportable 01/09/19 15:36 Not Reportable 01/09/19 15:36 Hem Pathologist Commnt No 01/09/19 15:36 Sodium 141 mmol/L (137-145) 01/09/19 15:36 Potassium 4.6 mmol/L (3.6-5.0) 01/09/19 15:36 Chloride 104.9 mmol/L (98-107) 01/09/19 15:36 Carbon Dioxide 25 mmol/L (22-30) 01/09/19 15:36 16 mmol/L 01/09/19 15:36 BUN 27 mg/dL (9-20) H 01/09/19 15:36 1.2 mg/dL (0.8-1.5) 01/09/19 15:36 Estimated GFR 57 ml/min 01/09/19 15:36 23 % 01/09/19 15:36 Glucose 122 mg/dL (75-100) H 01/09/19 15:36 Calcium 8.5 mg/dL (8.4-10.2) 01/09/19 15:36 0.40 mg/dL (0.1-1.2) 01/09/19 15:36 AST 17 units/L (5-40) 01/09/19 15:36 ALT 14 units/L (7-56) 01/09/19 15:36 109 units/L (35-129) 01/09/19 15:36 6.1 g/dL (6.3-8.2) L 01/09/19 15:36 2.5 g/dL (3.9-5) L 01/09/19 15:36 0.7 % 01/09/19 15:36 Short CBC 01/09/19 Range/Units 15:36 WBC 4.8 (4.5-11.0) K/mm3 Hgb 7.7 L (11.8-15.2) gm/dl Hct 25.2 L (35.5-45.6) % Plt Count 273 (140-440) K/mm3 BMP 01/09/19 15:36 Sodium 141 Potassium 4.6 Chloride 104.9 Carbon Dioxide 25 BUN 27 H Creatinine 1.2 Glucose 122 H Calcium 8.5 Liver Function 01/09/19 Range/Units 15:36 Total Bilirubin 0.40 (0.1-1.2) mg/dL AST 17 (5-40) units/L ALT 14 (7-56) units/L Alkaline Phosphatase 109 (35-129) units/L Albumin 2.5 L (3.9-5) g/dL Assessment and Plan Assessment and plan: Mr. Mendez is an 88-year-old male with history of prostate cancer (S/P radiation one year ago ), TIA, hypertension, and newly diagnosed dementia who was referred to [facility] ED by his pulp operator Dr. Reece With c/o of worsening anemia. 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 Patient has been receiving infusions to address his anemia. Patient also complains of generalized weakness and frequent falls. Patient will be admitted to the [place] unit for further evaluation and treatment Chronic anemia Hypertension Frequent falls History of TIA History of prostate cancer Plans: Serial H&H monitoring Oral iron supplementation Continue folic acid and multivitamin Monitor BP Resume home Norvasc 5 mg daily, Coreg 25 mg twice a day Continue Flomax PT consult pending Dr. Hutchison consult and following DVT PPX on SCD holding anticoagulation due to anemia Advance Directives: No VTE prophylaxis?: Mechanical Reason for no VTE Prophylaxis: Medical contraindication (anemia) <HEYDI PRICE - Last Filed: 01/09/19 22:56> History of Present Illness Date of admission: 01/09/19 21:41 Medications and Allergies Active Meds: Active Medications Acetaminophen (Tylenol) 650 mg PO Q4H PRN PRN Reason: Pain MILD(1-3)/Fever >100.5/GRIFFITHS Amlodipine Besylate (Norvasc) 5 mg PO QDAY [facility] Aspirin (Halfprin Ec) 81 mg PO DAILY [facility] Atorvastatin Calcium (Lipitor) 10 mg PO QHS [facility] Carvedilol (Coreg) 25 mg PO BID [facility] Last Admin: 01/09/19 22:43 Dose: 25 mg Documented by: Docusate Sodium (Colace) 100 mg PO BID [facility] Last Admin: 01/09/19 22:43 Dose: 100 mg Documented by: Folic Acid (Folvite) 1 mg PO QDAY [facility] Multivitamins/Minerals (Theragran-M Tab) 1 each PO QDAY [facility] Ondansetron HCl (Zofran) 4 mg IV Q8H PRN PRN Reason: Nausea And Vomiting Sodium Chloride (Sodium Chloride Flush Syringe 10 Ml) 10 ml IV BID [facility] Last Admin: 01/09/19 22:44 Dose: 10 ml Documented by: Sodium Chloride (Sodium Chloride Flush Syringe 10 Ml) 10 ml IV PRN PRN PRN Reason: LINE FLUSH Tamsulosin HCl (Flomax) 0.4 mg PO QDAY [facility] Tramadol HCl (Ultram) 50 mg PO Q4H PRN PRN Reason: Pain (4-6) Exam - Constitutional Vitals: Temp Pulse Resp BP Pulse Ox 98.6 F 72 16 152/57 99 01/09/19 14:47 01/09/19 22:43 01/09/19 18:35 01/09/19 22:43 01/09/19 18:35 Results - Labs CBC & Chem 7: 01/09/19 15:36 01/09/19 15:36 Labs: Laboratory Last Values WBC 4.8 K/mm3 (4.5-11.0) 01/09/19 15:36 RBC 3.09 M/mm3 (3.65-5.03) L 01/09/19 15:36 Hgb 7.7 gm/dl (11.8-15.2) L 01/09/19 15:36 Hct 25.2 % (35.5-45.6) L 01/09/19 15:36 MCV 82 fl (84-94) L 01/09/19 15:36 MCH 25 pg (28-32) L 01/09/19 15:36 MCHC 31 % (32-34) L 01/09/19 15:36 RDW 20.8 % (13.2-15.2) H 01/09/19 15:36 Plt Count 273 K/mm3 (140-440) 01/09/19 15:36 Add Manual Diff Complete 01/09/19 15:36 Total Counted 100 01/09/19 15:36 Seg Neuts % (Manual) 60.0 % (40.0-70.0) 01/09/19 15:36 0 % 01/09/19 15:36 30.0 % (13.4-35.0) 01/09/19 15:36 Reactive Lymphs % (Man) 0 % 01/09/19 15:36 10.0 % (0.0-7.3) H 01/09/19 15:36 0 % (0.0-4.3) 01/09/19 15:36 0 % (0.0-1.8) 01/09/19 15:36 0 % 01/09/19 15:36 0 % 01/09/19 15:36 0 % 01/09/19 15:36 0 % 01/09/19 15:36 Nucleated RBC % Not Reportable 01/09/19 15:36 Seg Neutrophils # Man 2.9 K/mm3 (1.8-7.7) 01/09/19 15:36 Band Neutrophils # 0.0 K/mm3 01/09/19 15:36 1.4 K/mm3 (1.2-5.4) 01/09/19 15:36 Abs React Lymphs (Man) 0.0 K/mm3 01/09/19 15:36 0.5 K/mm3 (0.0-0.8) 01/09/19 15:36 0.0 K/mm3 (0.0-0.4) 01/09/19 15:36 0.0 K/mm3 (0.0-0.1) 01/09/19 15:36 0.0 K/mm3 01/09/19 15:36 0.0 K/mm3 01/09/19 15:36 0.0 K/mm3 01/09/19 15:36 Blast Cells # 0.0 K/mm3 01/09/19 15:36 WBC Morphology Not Reportable 01/09/19 15:36 WBC Morphology TNR 01/09/19 15:36 Hypersegmented Neuts Not Reportable 01/09/19 15:36 Hyposegmented Neuts Not Reportable 01/09/19 15:36 Hypogranular Neuts Not Reportable 01/09/19 15:36 Not Reportable 01/09/19 15:36 Not Reportable 01/09/19 15:36 Not Reportable 01/09/19 15:36 Not Reportable 01/09/19 15:36 Not Reportable 01/09/19 15:36 Not Reportable 01/09/19 15:36 Not Reportable 01/09/19 15:36 Not Reportable 01/09/19 15:36 Plt Clumps, EDTA Not Reportable 01/09/19 15:36 Not Reportable 01/09/19 15:36 Not Reportable 01/09/19 15:36 Not Reportable 01/09/19 15:36 Plt Morphology Comment Not Reportable 01/09/19 15:36 RBC Morphology Not Reportable 01/09/19 15:36 Dimorphic RBCs Not Reportable 01/09/19 15:36 Not Reportable 01/09/19 15:36 1+ 01/09/19 15:36 Not Reportable 01/09/19 15:36 1+ 01/09/19 15:36 Not Reportable 01/09/19 15:36 Not Reportable 01/09/19 15:36 Not Reportable 01/09/19 15:36 Not Reportable 01/09/19 15:36 Not Reportable 01/09/19 15:36 Not Reportable 01/09/19 15:36 Not Reportable 01/09/19 15:36 Not Reportable 01/09/19 15:36 Not Reportable 01/09/19 15:36 Not Reportable 01/09/19 15:36 Not Reportable 01/09/19 15:36 Not Reportable 01/09/19 15:36 Not Reportable 01/09/19 15:36 Not Reportable 01/09/19 15:36 Not Reportable 01/09/19 15:36 Acanthocytes (Spur) Not Reportable 01/09/19 15:36 Rouleaux Not Reportable 01/09/19 15:36 Not Reportable 01/09/19 15:36 Not Reportable 01/09/19 15:36 Not Reportable 01/09/19 15:36 Not Reportable 01/09/19 15:36 Hem Pathologist Commnt No 01/09/19 15:36 Sodium 141 mmol/L (137-145) 01/09/19 15:36 Potassium 4.6 mmol/L (3.6-5.0) 01/09/19 15:36 Chloride 104.9 mmol/L (98-107) 01/09/19 15:36 Carbon Dioxide 25 mmol/L (22-30) 01/09/19 15:36 16 mmol/L 01/09/19 15:36 BUN 27 mg/dL (9-20) H 01/09/19 15:36 1.2 mg/dL (0.8-1.5) 01/09/19 15:36 Estimated GFR 57 ml/min 01/09/19 15:36 23 % 01/09/19 15:36 Glucose 122 mg/dL (75-100) H 01/09/19 15:36 Calcium 8.5 mg/dL (8.4-10.2) 01/09/19 15:36 0.40 mg/dL (0.1-1.2) 01/09/19 15:36 AST 17 units/L (5-40) 01/09/19 15:36 ALT 14 units/L (7-56) 01/09/19 15:36 109 units/L (35-129) 01/09/19 15:36 6.1 g/dL (6.3-8.2) L 01/09/19 15:36 2.5 g/dL (3.9-5) L 01/09/19 15:36 0.7 % 01/09/19 15:36 Assessment and Plan Assessment and plan: A 71-year-old man history of prostate cancer, status post radiation therapy,? Myeloproliferative proliferative disease, hypertension, TIA, dementia was sent to the emergency room by her oncologist for evaluation of anemia. Patient has been complaining of generalized weakness. Further workup of anemia per Dr. Hutchison, agree with plan as discussed above.I saw and evaluated the patient, discussed with past practitioner
[2019-01-09] MEDS ORDERED: FEOSOL PO ONE (22:30)
[2019-01-09] MEDS ORDERED: COLACE ONE (22:34)
[2019-01-09] MEDS ORDERED: COREG ONE (22:34)
[2019-01-09] MEDS: COLACE PO SCH (22:43)
[2019-01-09] MEDS: COREG PO SCH (22:43)
[2019-01-09] MEDS: SODIUM CHLORIDE FLUSH SYRINGE 10 ML IV SCH (22:44)
[2019-01-10 06:24] LABS: Hematocrit 23.6 % (35.5-45.6); Hemoglobin 7.3 gm/dl (11.8-15.2); Mean Corpuscular HGB Conc 31 % (32-34); Mean Corpuscular Volume 82 fl (84-94); Platelet Count 240 K/mm3 (140-440); Red Blood Count 2.89 M/mm3 (3.65-5.03)
[2019-01-10 06:32] LABS: Red Cell Distribution Width 20.4 % (13.2-15.2)
[2019-01-10 06:36] LABS: BUN/Creatinine Ratio 24; Blood Urea Nitrogen 24 mg/dL (9-20); Hemolysis Index 0
[2019-01-10 07:31] LABS: Band Neutrophils # (Manual) 1.9 K/mm3; Basophils % (Manual) 0 % (0.0-1.8); Eosinophils % (Manual) 0 % (0.0-4.3); Total Cells Counted 100
[2019-01-10 07:32] LABS: Anisocytosis 1+; Hypochromasia 1+; Ovalocytes 1+
[2019-01-10 08:46] LABS: Iron 11 ug/dL (49-181); Total Iron Binding Capacity 121 mcg/dL (250-450)
[2019-01-10] MEDS: SODIUM CHLORIDE FLUSH SYRINGE 10 ML IV SCH (09:25)
[2019-01-10] MEDS ORDERED: NON-FORMULARY (Telmisartan [Micardis] 80 MG) PO SCH (10:00)
[2019-01-10] MEDS: FEOSOL PO SCH (10:39)
[2019-01-10] MEDS: COREG PO SCH ×2 (10:40→22:52)
[2019-01-10] MEDS: FOLVITE PO SCH (10:40)
[2019-01-10] MEDS: FLOMAX PO SCH (10:40)
[2019-01-10] MEDS: THERAGRAN-M Tab PO SCH (10:41)
[2019-01-10] MEDS: COLACE PO SCH (10:41)
[2019-01-10] MEDS: HALFPRIN EC PO SCH (10:42)
[2019-01-10] MEDS: NORVASC PO SCH (10:42)
--- NOTE | 2019-01-10 11:34 | Progress Note ---
Assessment and Plan Assessment and plan: Mr. Mendez is an 88-year-old male with history of prostate cancer (S/P radiation one year ago ), TIA, hypertension, dementia who was referred to [facility] ED by his physician recruiter Dr. Reece With c/o of worsening anemia. 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 Patient has been receiving infusions to address his anemia. Patient also complains of generalized weakness and frequent falls. Patient will be admitted to the [facility] unit for further evaluation and treatment Chronic anemia; hemoglobin this morning was 7.4 and patient is asymptomatic. No need for transfusion at this time Hypertension Frequent falls History of TIA History of prostate cancer - Dr. Reece ordered CT chest, abdomen and pelvis. We'll follow the results. - Anemia workup - Continue his home medications DVT prophylaxis; on SCDs because of anemia Disposition; per hematology/oncology Management plan was discussed with the patient and his family members. History Interval history: Patient was seen and evaluated this morning, patient's complaining easy fatigability. No other complaints. Hospitalist Physical - Physical exam Narrative exam: Not in cardiopulmonary distress. The patient appeared well nourished and normally developed. Vital signs as documented. Head exam is unremarkable. No scleral icterus . Neck is without jugular venous distension, thyromegaly, or carotid bruits. Lungs are clear to auscultation. Cardiac exam reveals regular rate and Rhythm. First and second heart sounds normal. No murmurs, rubs or gallops. Abdominal exam reveals normal bowel sounds, no masses, no organomegaly and no aortic enlargement. Extremities are nonedematous and both femoral and pedal pulses are normal. [employer]WMEMBER: Alert and oriented 3. No focal weakness. - Constitutional Vitals: Temp Pulse Resp BP Pulse Ox 98.3 F 68 16 133/56 98 01/09/19 21:41 01/10/19 10:40 01/09/19 22:58 01/10/19 10:40 01/09/19 22:58 Results - Labs CBC & Chem 7: 01/10/19 06:02 01/10/19 06:02 Labs: Laboratory Last Values WBC 4.8 K/mm3 (4.5-11.0) 01/10/19 06:02 RBC 2.89 M/mm3 (3.65-5.03) L 01/10/19 06:02 Hgb 7.3 gm/dl (11.8-15.2) L 01/10/19 06:02 Hct 23.6 % (35.5-45.6) L 01/10/19 06:02 MCV 82 fl (84-94) L 01/10/19 06:02 MCH 25 pg (28-32) L 01/10/19 06:02 MCHC 31 % (32-34) L 01/10/19 06:02 RDW 20.4 % (13.2-15.2) H 01/10/19 06:02 Plt Count 240 K/mm3 (140-440) 01/10/19 06:02 Add Manual Diff Complete 01/10/19 06:02 Total Counted 100 01/10/19 06:02 Seg Neuts % (Manual) 32.0 % (40.0-70.0) L 01/10/19 06:02 39.0 % 01/10/19 06:02 20.0 % (13.4-35.0) 01/10/19 06:02 Reactive Lymphs % (Man) 0 % 01/10/19 06:02 4.0 % (0.0-7.3) 01/10/19 06:02 0 % (0.0-4.3) 01/10/19 06:02 0 % (0.0-1.8) 01/10/19 06:02 5.0 % 01/10/19 06:02 0 % 01/10/19 06:02 0 % 01/10/19 06:02 0 % 01/10/19 06:02 Nucleated RBC % Not Reportable 01/10/19 06:02 Seg Neutrophils # Man 1.5 K/mm3 (1.8-7.7) L 01/10/19 06:02 Band Neutrophils # 1.9 K/mm3 01/10/19 06:02 1.0 K/mm3 (1.2-5.4) L 01/10/19 06:02 Abs React Lymphs (Man) 0.0 K/mm3 01/10/19 06:02 0.2 K/mm3 (0.0-0.8) 01/10/19 06:02 0.0 K/mm3 (0.0-0.4) 01/10/19 06:02 0.0 K/mm3 (0.0-0.1) 01/10/19 06:02 0.2 K/mm3 01/10/19 06:02 0.0 K/mm3 01/10/19 06:02 0.0 K/mm3 01/10/19 06:02 Blast Cells # 0.0 K/mm3 01/10/19 06:02 WBC Morphology Not Reportable 01/10/19 06:02 Hypersegmented Neuts Not Reportable 01/10/19 06:02 Hyposegmented Neuts Not Reportable 01/10/19 06:02 Hypogranular Neuts Not Reportable 01/10/19 06:02 Not Reportable 01/10/19 06:02 Not Reportable 01/10/19 06:02 Not Reportable 01/10/19 06:02 Not Reportable 01/10/19 06:02 Not Reportable 01/10/19 06:02 Not Reportable 01/10/19 06:02 Appears normal 01/10/19 06:02 Not Reportable 01/10/19 06:02 Plt Clumps, EDTA Not Reportable 01/10/19 06:02 Not Reportable 01/10/19 06:02 Not Reportable 01/10/19 06:02 Not Reportable 01/10/19 06:02 Plt Morphology Comment Not Reportable 01/10/19 06:02 RBC Morphology Not Reportable 01/10/19 06:02 Dimorphic RBCs Not Reportable 01/10/19 06:02 Not Reportable 01/10/19 06:02 1+ 01/10/19 06:02 Not Reportable 01/10/19 06:02 1+ 01/10/19 06:02 Not Reportable 01/10/19 06:02 Not Reportable 01/10/19 06:02 Not Reportable 01/10/19 06:02 Not Reportable 01/10/19 06:02 Not Reportable 01/10/19 06:02 Not Reportable 01/10/19 06:02 Not Reportable 01/10/19 06:02 1+ 01/10/19 06:02 Not Reportable 01/10/19 06:02 Not Reportable 01/10/19 06:02 Not Reportable 01/10/19 06:02 Not Reportable 01/10/19 06:02 Not Reportable 01/10/19 06:02 Not Reportable 01/10/19 06:02 Rare 01/10/19 06:02 Acanthocytes (Spur) Not Reportable 01/10/19 06:02 Rouleaux Not Reportable 01/10/19 06:02 Not Reportable 01/10/19 06:02 Not Reportable 01/10/19 06:02 Not Reportable 01/10/19 06:02 Not Reportable 01/10/19 06:02 Hem Pathologist Commnt No 01/10/19 06:02 Sodium 141 mmol/L (137-145) 01/10/19 06:02 Potassium 4.2 mmol/L (3.6-5.0) 01/10/19 06:02 Chloride 107.8 mmol/L (98-107) H 01/10/19 06:02 Carbon Dioxide 24 mmol/L (22-30) 01/10/19 06:02 13 mmol/L 01/10/19 06:02 BUN 24 mg/dL (9-20) H 01/10/19 06:02 1.0 mg/dL (0.8-1.5) 01/10/19 06:02 Estimated GFR > 60 ml/min 01/10/19 06:02 24 % 01/10/19 06:02 Glucose 105 mg/dL (75-100) H 01/10/19 06:02 Calcium 8.0 mg/dL (8.4-10.2) L 01/10/19 06:02 Iron 11 ug/dL (49-181) L 01/10/19 07:30 TIBC 121 mcg/dL (250-450) L 01/10/19 07:30 200.9 ng/mL (13.0-400.0) 01/10/19 07:30 0.40 mg/dL (0.1-1.2) 01/09/19 15:36 AST 17 units/L (5-40) 01/09/19 15:36 ALT 14 units/L (7-56) 01/09/19 15:36 109 units/L (35-129) 01/09/19 15:36 6.1 g/dL (6.3-8.2) L 01/09/19 15:36 2.5 g/dL (3.9-5) L 01/09/19 15:36 0.7 % 01/09/19 15:36 Vitamin B12 1058 pg/mL (211-911) H 01/10/19 07:30 > 20 ng/mL (7.3-26.0) 01/10/19 07:30 Active Medications - Current Medications Current Medications: Generic Name Dose Route Start Last Admin Trade Name Freq PRN Reason Stop Dose Admin Acetaminophen 650 mg 01/09/19 21:41 Tylenol PO Q4H PRN Pain MILD(1-3)/Fever >100.5/GRIFFITHS Amlodipine Besylate 5 mg 01/10/19 10:00 01/10/19 10:42 Norvasc PO Not Given QDAY [facility] Aspirin 81 mg 01/10/19 10:00 01/10/19 10:42 Halfprin Ec PO Not Given DAILY [facility] Atorvastatin Calcium 10 mg 01/10/19 22:00 Lipitor PO QHS [facility] Carvedilol 25 mg 01/09/19 22:00 01/10/19 10:40 Coreg PO 25 mg BID DANNIE Administration Docusate Sodium 100 mg 01/09/19 22:00 01/10/19 10:41 Colace PO 100 mg BID [facility] Administration Ferrous Sulfate 325 mg 01/10/19 10:00 01/10/19 10:39 Feosol PO 325 mg QDAY [facility] Administration Folic Acid 1 mg 01/10/19 10:00 01/10/19 10:40 Folvite PO 1 mg QDAY [facility] Administration Multivitamins/Minerals 1 each 01/10/19 10:00 01/10/19 10:41 Theragran-M Tab PO 1 each QDAY [facility] Administration Ondansetron HCl 4 mg 01/09/19 21:41 Zofran IV Q8H PRN Nausea And Vomiting Sodium Chloride 10 ml 01/09/19 22:00 01/10/19 09:25 Sodium Chloride Flush Syringe 10 Ml IV 10 ml BID DANNIE Administration Sodium Chloride 10 ml 01/09/19 21:41 Sodium Chloride Flush Syringe 10 Ml IV PRN PRN LINE FLUSH Tamsulosin HCl 0.4 mg 01/10/19 10:00 01/10/19 10:40 Flomax PO 0.4 mg QDAY DANNIE Administration Tramadol HCl 50 mg 01/09/19 21:44 Ultram PO Q4H PRN Pain (4-6) Nutrition/Malnutrition Assess - Dietary Evaluation Nutrition/Malnutrition Findings: Nutrition Notes Start: 01/10/19 10:50 Freq: Status: Active Protocol: Document 01/10/19 10:51 CP (Rec: 01/10/19 10:55 CP [id number]) Co-Sign 01/10/19 10:51 LP Nutrition Notes Need for Assessment generated from: MD Order,MST Initial or Follow up Brief Note Subjective/Other Information Pt screened for MST. Pt was gone for CT scan at time of visit. Nutrition Intervention Follow-Up By: 01/11/19 Additional Comments F/U: MST screen
--- NOTE | 2019-01-10 11:38 | Cat Scan Report ---
CT CHEST, ABDOMEN AND PELVIS WITH CONTRAST INDICATION: History of weight loss, anemia. COMPARISON: 05/26/[address] FINDINGS: Chest, abdomen and pelvis CT performed following oral contrast and intravenous administration of 100 cc of Omnipaque 300. CHEST: Stable slight cardiomegaly. Coronary and aortic atherosclerotic calcifications. No effusions or size significant adenopathy. Few small, subcentimeter mediastinal/AP window lymph nodes incidentally noted. Patent central airway. Grossly unremarkable great vessels. Normal thyroid size with an indeterminate 5 mm hypodensity on the right inferiorly, axial image 20, series 2. Septal thickening noted predominantly peripherally, greatest subpleural and towards the bases with mild increased ground glass haziness as well. Nonspecific distal esophageal wall prominence/thickening, not excluded for gastroesophageal reflux and/or hiatal hernia, amongst others. ABDOMEN: Stable 1.7 cm peripherally calcified gallstone now noted towards the gallbladder neck. Multiple bilateral renal hypodensities/cysts also seen, some subcentimeter/indeterminate, including approximately 3.9 cm right upper renal pole cortical cyst again noted, axial image 31, series 4. Largest partly exophytic left interpolar cortical cyst or possibly 2 adjacent cysts collectively measure approximately 5.1 x 4 cm on axial image 46. Slightly complex 0.9 cm peripherally calcified exophytic density also noted anteriorly off the left upper renal pole, axial image 36, nonspecific, though presumably a calcified cyst, amongst other possibilities as a lymph node. Patent veins. Liver, spleen, pancreas, adrenals, nonaneurysmal abdominal aorta with atherosclerotic calcifications, IVC and non-hydronephrotic kidneys otherwise within normal limits. Few small, subcentimeter mesenteric and retroperitoneal lymph nodes without ascites or size significant adenopathy. Opacified GI tract nonobstructive. Mild to moderate stool throughout colon/possible constipation, partly admixed with contrast proximally. PELVIS: Brachytherapy seeds create some streak artifact. Possible prior TURP. Otherwise grossly unremarkable imaged urinary bladder and seminal vesicles. Rectosigmoid stool. Few distal descending colon and sigmoid diverticuli. Small right hemipelvic phleboliths. Mild presacral fat stranding/density. No free fluid or significant adenopathy. Small fat containing inguinal hernias, more so on the left measuring up to 1.5 cm. Subtle 1.3 cm left groin/proximal thigh intramuscular lipoma anteriorly with a small peripheral calcification as on axial image 99. Mild lumbar levoscoliosis apex about L2-L3. Moderate to severe multilevel disc narrowing and vacuum phenomena from L2-S1. Mild mid to lower lumbar facet arthropathy also seen. Slight bilateral hip degenerative changes. Possible osteopenia. Mild multilevel thoracic spine degenerative spurring and lower cervical spondylosis as well. Interval bilateral shoulder replacements since May 2014, creating streak artifact and limiting exam. CONCLUSION: 1. Interval bilateral shoulder replacements since May 2014 in this patient with idiopathic pulmonary fibrosis pattern again noted, as described. 2. Various other findings as cholelithiasis, bilateral renal hypodensities/cysts, possible constipation, brachytherapy seeds and multilevel spinal degenerative changes, amongst others, as detailed above. Thank you for the opportunity to participate in this patient's care.
[2019-01-10 15:03] LABS: Hemoglobin 6.9 gm/dl (11.8-15.2)
[2019-01-10] MEDS ORDERED: NACL 0.9% 500 ML 500 ML IV ONE (22:24)
--- NOTE | 2019-01-10 22:43 | Event Note ---
Date: 01/10/19 [id number]
--- NOTE | 2019-01-11 01:57 | Consultation ---
REFERRING PHYSICIAN: Robin Toledo MD REASON FOR CONSULTATION: Anemia. HISTORY OF PRESENT ILLNESS: I saw the patient, an 88 years old male with history of prostate cancer status post radiation, transient ischemic attack, hypertension. As per the notes, the patient was diagnosed with myelodysplastic syndrome in 05/2016. He had bone marrow biopsy done. As his white cell count was low, he received Neupogen injection prior to procedures. In 11/2018, the patient was admitted to [facility], was treated for urinary tract infection. He received IV iron. He had undergone ultrasound of the leg and ultrasound of abdomen. He has been feeling weak. There is also a history of transient ischemic attack, hypertension. At this time, no headache, no visual disturbances, no ear discharge, no chest pain, no shortness of breath at rest. No vomiting, no diarrhea, no dysuria. PAST MEDICAL HISTORY: Myelodysplastic syndrome based on bone marrow biopsy done in the past. PAST SURGICAL HISTORY: Appendix surgery. SOCIAL HISTORY: Lives with family members. FAMILY HISTORY: Noncontributory. ALLERGIES: None. HOME MEDICATIONS: Included Coreg, Flomax, Micardis, Norvasc, aspirin, Centrum, tramadol, tamsulosin. REVIEW OF SYSTEMS: History of loss of weight at present, history of decreased energy, history of anemia needing transfusion. No hematemesis, no hematochezia, no hematuria. No seizures or syncope. PHYSICAL EXAMINATION: VITAL SIGNS: Temperature 98, pulse 79, respirations 18, BP 131/45. HEENT: Pallor present. No icterus. NECK: No neck lymph nodes. HEART: S1, S2. LUNGS: Clear to auscultation. ABDOMEN: Soft. EXTREMITIES: No calf tenderness. LABORATORY DATA: White cell at admission was 4.8, hemoglobin 7.7, MCV 82, platelet 273 and later today hemoglobin was 6.9, potassium 4.2, creatinine 1, calcium 8. Serum iron is 11, ferritin 200, B12 is 1000, folate more than 20. RADIOLOGY: CT chest, abdomen and pelvis show he has renal cyst, gallstones. Liver, spleen, no lesions. ASSESSMENT: 1. Anemia. The patient received IV iron in the clinic setting. History of myelodysplastic syndrome is present. Serum iron has been low. I discussed with Dr. Toledo regarding gastrointestinal evaluation. 2. History of prostate cancer, status post radiation, details not clear. 3. Myelodysplastic syndrome based on history. 4. History of hypertension. 5. History of transient ischemic attack. 6. Mention of Dementia. 7. History of loss of weight at present. PLAN: We will await GI evaluation from the patient was admitted to [facility] in the recent past. The patient's creatinine is not elevated. In the recent past, leg Doppler was negative for deep vein thrombosis study. There is a plan for my colleague to look into transfusion support needed and Procrit. JOB# [id number] NM/NTS
[2019-01-11] MEDS: COLACE PO SCH ×2 (04:49→09:20)
[2019-01-11] MEDS: SODIUM CHLORIDE FLUSH SYRINGE 10 ML IV SCH ×2 (04:50→09:22)
[2019-01-11 05:07] LABS: Hematocrit 22.2 % (35.5-45.6); Hemoglobin 6.9 gm/dl (11.8-15.2); Mean Corpuscular HGB Conc 31 % (32-34); Mean Corpuscular Volume 81 fl (84-94); Platelet Count 222 K/mm3 (140-440); Red Blood Count 2.74 M/mm3 (3.65-5.03)
[2019-01-11 05:15] LABS: Red Cell Distribution Width 20.3 % (13.2-15.2)
[2019-01-11 05:23] LABS: BUN/Creatinine Ratio 22; Blood Urea Nitrogen 24 mg/dL (9-20); Calcium 7.9 mg/dL (8.4-10.2); Hemolysis Index 1
[2019-01-11] MEDS ORDERED: NACL 0.9% 500 ML 500 ML IV NR (08:00)
[2019-01-11] MEDS: COREG PO SCH (09:20)
[2019-01-11] MEDS: FEOSOL PO SCH (09:20)
[2019-01-11] MEDS: FLOMAX PO SCH (09:21)
[2019-01-11] MEDS: FOLVITE PO SCH (09:21)
[2019-01-11] MEDS: THERAGRAN-M Tab PO SCH (09:22)
[2019-01-11] MEDS: NORVASC PO SCH (09:23)
[2019-01-11] MEDS: HALFPRIN EC PO SCH (09:23)
--- NOTE | 2019-01-11 10:43 | Hem/Onc Progress Note ---
Assessment and Plan 1. Anemia. The patient received IV iron in the clinic setting. History of myelodysplastic syndrome is present. Serum iron has been low. I discussed with Dr. Toledo regarding gastrointestinal evaluation. 2. History of prostate cancer, status post radiation, details not clear. 3. Myelodysplastic syndrome based on history. 4. History of hypertension. 5. History of transient ischemic attack. 6. Mention of Dementia. 7. History of loss of weight at present. The patient's creatinine is not elevated. In the recent past, leg Doppler was negative for deep vein thrombosis study. There was a plan for my colleague to look into transfusion support as needed and Procrit. 01/11 - d/w Dr Coreas GI - RBC scan - if + more GI evals s/p prbc as hb was 6.9 - Patient Problems (1) Anemia Current Visit: Yes Status: Acute Qualifiers: Anemia type: iron deficiency Subjective Date of service: 01/11/19 Objective - Constitutional Vitals: Last Vital Signs Temp 98.0 F 01/11/19 09:24 Pulse 74 01/11/19 09:24 Resp 16 01/11/19 09:24 BP 122/53 01/11/19 09:24 Pulse Ox 97 01/11/19 07:54 Pain Intensity (0-10): denies any pain General appearance: no acute distress Performance status: 3-limited selfcare - EENT Eyes: EOM intact ENT: hearing intact Lymph node exam: negative cervical - Neck Neck: normal ROM - Respiratory Respiratory effort: Positive: normal Respiratory: bilateral: CTA - Cardiovascular Heart Sounds: Present: S1 & S2 Extremities: normal temperature - Gastrointestinal General gastrointestinal: Present: soft, non-tender Rectal Exam: deferred - Genitourinary Male genitourinary: Present: deferred - Integumentary Integumentary: warm - Musculoskeletal Musculoskeletal: generalized weakness - Neurologic Neurologic: moves all extremities - Labs Lab Results: Laboratory Results - last 24 hr 01/10/19 01/10/19 01/11/19 14:26 23:00 04:22 WBC RBC Hgb 6.9 L Hct 23.0 L MCV MCH MCHC RDW Plt Count Sodium Potassium Chloride Carbon Dioxide Anion Gap BUN Creatinine Estimated GFR BUN/Creatinine Ratio Glucose Calcium Prostate Specific Ag 0.01 Blood Type A POSITIVE Antibody Screen Negative Crossmatch See Detail 01/11/19 01/11/19 04:22 04:22 WBC 4.0 L RBC 2.74 L Hgb 6.9 L Hct 22.2 L MCV 81 L MCH 25 L MCHC 31 L RDW 20.3 H Plt Count 222 Sodium 139 Potassium 4.2 Chloride 105.6 Carbon Dioxide 24 Anion Gap 14 BUN 24 H Creatinine 1.1 Estimated GFR > 60 BUN/Creatinine Ratio 22 Glucose 102 H Calcium 7.9 L Prostate Specific Ag Blood Type Antibody Screen Crossmatch Medications & Allergies - Medications Allergies/Adverse Reactions: Allergies No Known Allergies Allergy (Verified 01/09/19 14:02) Home Medications: Home Medications Medication Instructions Recorded Confirmed Last Taken Type RX: Carvedilol [Coreg] 25 mg PO BID 12/29/16 01/10/19 01/09/19 09:00 History RX: Tamsulosin [Flomax] 0.4 mg PO QDAY 12/29/16 01/10/19 01/09/19 09:00 History RX: traMADol [Ultram 50 MG tab] 50 mg PO Q4HR PRN 08/07/17 01/10/19 Unknown History Ferrous Sulfate [Iron 325 MG] 325 mg PO DAILY 01/10/19 01/10/19 01/09/19 09:00 History RX: Folic Acid [Folvite] 1 mg PO QDAY 01/10/19 01/10/19 01/09/19 09:00 History Active Medications: Generic Name Dose Route Start Last Admin Trade Name Freq PRN Reason Stop Dose Admin Acetaminophen 650 mg 01/09/19 21:41 Tylenol PO Q4H PRN Pain MILD(1-3)/Fever >100.5/GRIFFITHS Amlodipine Besylate 5 mg 01/10/19 10:00 01/11/19 09:23 Norvasc PO Not Given QDAY DANNIE Aspirin 81 mg 01/10/19 10:00 01/11/19 09:23 Halfprin Ec PO Not Given DAILY DANNIE Atorvastatin Calcium 10 mg 01/10/19 22:00 01/10/19 22:51 Lipitor PO 10 mg QHS DANNIE Administration Carvedilol 25 mg 01/09/19 22:00 01/11/19 09:20 Coreg PO 25 mg BID DANNIE Administration Docusate Sodium 100 mg 01/09/19 22:00 01/11/19 09:20 Colace PO 100 mg BID DANNIE Administration Ferrous Sulfate 325 mg 01/10/19 10:00 01/11/19 09:20 Feosol PO 325 mg QDAY DANNIE Administration Folic Acid 1 mg 01/10/19 10:00 01/11/19 09:21 Folvite PO 1 mg QDAY DANNIE Administration Sodium Chloride 500 mls @ 0 mls/hr 01/11/19 08:00 Nacl 0.9% 500 Ml IV 01/11/19 16:00 ONCE NR As Directed Multivitamins/Minerals 1 each 01/10/19 10:00 01/11/19 09:22 Theragran-M Tab PO 1 each QDAY DANNIE Administration Ondansetron HCl 4 mg 01/09/19 21:41 Zofran IV Q8H PRN Nausea And Vomiting Sodium Chloride 10 ml 01/09/19 22:00 01/11/19 09:22 Sodium Chloride Flush Syringe 10 Ml IV Not Given BID DANNIE Sodium Chloride 10 ml 01/09/19 21:41 Sodium Chloride Flush Syringe 10 Ml IV PRN PRN LINE FLUSH Tamsulosin HCl 0.4 mg 01/10/19 10:00 01/11/19 09:21 Flomax PO 0.4 mg QDAY DANNIE Administration Tramadol HCl 50 mg 01/09/19 21:44 Ultram PO Q4H PRN Pain (4-6)
--- NOTE | 2019-01-11 10:56 | Gastroenterology Consultation ---
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 Reece who is following for worsening anemia with associated generalized weakness to which GI has been consulted. This morning patient was sitting up in bed finishing his breakfast w/o acute distress and at bedside who assisted with obtaining history. She reports chronic anemia for the past couple of years. No active signs of bleeding such as hematemesis, melana, or hematochezia but states patients stool is dark when taking iron supplement. Patient is currently w/o GI complaints. Denies fever, CP, SOB, abdominal pain, N/V, diarrhea, or constipation. He has had a continued gradual wt loss over the past couple of years per (unsure of amount; ~40lbs?). No NSAIDs or blood thinning medications. No hx of PUD. Last EGD/colonoscopy by Dr. Cotto with [facility] in [place] in 2013. No known Fhx of GI cancers. Past History Past Medical History: other (as per HPI) Past Surgical History: appendectomy, Other (bilateral rotator cuff) Social history: , lives with family Family history: no significant family history Medications and Allergies Allergies Allergy/AdvReac Type Severity Reaction Status Date / Time No Known Allergies Allergy Verified 01/09/19 14:02 Home Medications Medication Instructions Recorded Confirmed Last Taken Type Carvedilol [Coreg] 25 mg PO BID 12/29/16 01/10/19 01/09/19 09:00 History Tamsulosin [Flomax] 0.4 mg PO QDAY 12/29/16 01/10/19 01/09/19 09:00 History traMADol [Ultram 50 MG tab] 50 mg PO Q4HR PRN 08/07/17 01/10/19 Unknown History Ferrous Sulfate [Iron 325 MG] 325 mg PO DAILY 01/10/19 01/10/19 01/09/19 09:00 History Folic Acid [Folvite] 1 mg PO QDAY 01/10/19 01/10/19 01/09/19 09:00 History Active Meds: Active Medications Acetaminophen (Tylenol) 650 mg PO Q4H PRN PRN Reason: Pain MILD(1-3)/Fever >100.5/GRIFFITHS Amlodipine Besylate (Norvasc) 5 mg PO QDAY [facility] Last Admin: 01/11/19 09:23 Dose: Not Given Documented by: Aspirin (Halfprin Ec) 81 mg PO DAILY [facility] Last Admin: 01/11/19 09:23 Dose: Not Given Documented by: Atorvastatin Calcium (Lipitor) 10 mg PO QHS [facility] Last Admin: 01/10/19 22:51 Dose: 10 mg Documented by: Carvedilol (Coreg) 25 mg PO BID [facility] Last Admin: 01/11/19 09:20 Dose: 25 mg Documented by: Docusate Sodium (Colace) 100 mg PO BID [facility] Last Admin: 01/11/19 09:20 Dose: 100 mg Documented by: Ferrous Sulfate (Feosol) 325 mg PO QDAY [facility] Last Admin: 01/11/19 09:20 Dose: 325 mg Documented by: Folic Acid (Folvite) 1 mg PO QDAY [facility] Last Admin: 01/11/19 09:21 Dose: 1 mg Documented by: Sodium Chloride (Nacl 0.9% 500 Ml) 500 mls @ 0 mls/hr IV ONCE NR Stop: 01/11/19 16:00 Multivitamins/Minerals (Theragran-M Tab) 1 each PO QDAY [facility] Last Admin: 01/11/19 09:22 Dose: 1 each Documented by: Ondansetron HCl (Zofran) 4 mg IV Q8H PRN PRN Reason: Nausea And Vomiting Sodium Chloride (Sodium Chloride Flush Syringe 10 Ml) 10 ml IV BID [facility] Last Admin: 01/11/19 09:22 Dose: Not Given Documented by: Sodium Chloride (Sodium Chloride Flush Syringe 10 Ml) 10 ml IV PRN PRN PRN Reason: LINE FLUSH Tamsulosin HCl (Flomax) 0.4 mg PO QDAY [facility] Last Admin: 01/11/19 09:21 Dose: 0.4 mg Documented by: Tramadol HCl (Ultram) 50 mg PO Q4H PRN PRN Reason: Pain (4-6) medications reviewed/updated as required Review of Systems - Review of Systems All systems: negative Constitutional: weight loss, weakness Gastrointestinal: no abdominal pain, no nausea, no vomiting, no hematemesis, no melena, no hematochezia Exam - Constitutional Vital Signs: Temp Pulse Resp BP Pulse Ox 98.5 F 71 16 129/57 97 01/11/19 10:48 01/11/19 10:48 01/11/19 10:48 01/11/19 10:48 01/11/19 07:54 General appearance: no acute distress - EENT Eyes: PERRL, EOM intact ENT: hearing intact - Respiratory Respiratory: bilateral: CTA - Cardiovascular Rhythm: regular - Gastrointestinal General gastrointestinal: Present: soft, non-tender, non-distended, normal bowel sounds - Labs CBC & Chem 7: 01/11/19 04:22 01/11/19 04:22 Lab Results: Laboratory Results - last 24 hr 01/10/19 01/10/19 01/11/19 14:26 23:00 04:22 WBC RBC Hgb 6.9 L Hct 23.0 L MCV MCH MCHC RDW Plt Count Sodium Potassium Chloride Carbon Dioxide Anion Gap BUN Creatinine Estimated GFR BUN/Creatinine Ratio Glucose Calcium Prostate Specific Ag 0.01 Blood Type A POSITIVE Antibody Screen Negative Crossmatch See Detail 01/11/19 01/11/19 04:22 04:22 WBC 4.0 L RBC 2.74 L Hgb 6.9 L Hct 22.2 L MCV 81 L MCH 25 L MCHC 31 L RDW 20.3 H Plt Count 222 Sodium 139 Potassium 4.2 Chloride 105.6 Carbon Dioxide 24 Anion Gap 14 BUN 24 H Creatinine 1.1 Estimated GFR > 60 BUN/Creatinine Ratio 22 Glucose 102 H Calcium 7.9 L Prostate Specific Ag Blood Type Antibody Screen Crossmatch Assessment and Plan 1.anemia-chronic -stool occult negative -CT chest/abdomen w/o acute GI findings -H/H 6.9/22.2 -PRBCs currently transfusing -continue to monitor H/H and transfuse as needed -last EGD/colonoscopy [place] [address] Cotto in 2013 -clinically, patient is HD stable with no active signs of bleeding or GI complaints. No abd pain or N/V. Tolerating diet. -etiology-likely 2/2 questionable myeloproliferative disorder -no plan for repeat endoscopic evaluation with EGD/colonoscopy at this time unless overt bleeding develops or recommended per hematology -continue iron supplement and MVI -continue supportive care -will defer further management per hematology (Dr. Reece following)
[2019-01-11 11:24] LABS: Anisocytosis 1+; Band Neutrophils # (Manual) 0.8 K/mm3; Basophils % (Manual) 0 % (0.0-1.8); Eosinophils % (Manual) 0 % (0.0-4.3); Hypochromasia 1+; Platelet Clumps Few; Platelet Estimate Consistent w Auto; Total Cells Counted 100
--- NOTE | 2019-01-11 14:08 | Progress Note ---
Assessment and Plan Assessment and plan: Mr. 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 Reece With c/o of worsening anemia. 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 Patient has been receiving infusions to address his anemia. Patient also complains of generalized weakness and frequent falls. Patient will be admitted to the [facility] unit for further evaluation and treatment Chronic anemia; hemoglobin this morning was 6.9 and being transfused a unit of blood, will check H&H after that. GI was consulted and recommended no EGD or colonoscopy at this time Hypertension; continue amlodipine and carvedilol Frequent falls; PT evaluation History of TIA; continue atorvastatin and Plavix History of prostate cancer - Dr. Reece ordered CT chest, abdomen and pelvis. Unremarkable - Anemia workup; iron deficiency anemia DVT prophylaxis; on SCDs because of anemia Disposition; Possible discharge tomorrow if H/H is stable. Unless GI do any procedure after discussing with Dr Reece. Management plan was discussed with the patient. History Interval history: Patient was seen and evaluated this morning, patient didn't have any complaints. Hospitalist Physical - Physical exam Narrative exam: Not in cardiopulmonary distress. The patient appeared well nourished and normally developed. Vital signs as documented. Head exam is unremarkable. No scleral icterus . Neck is without jugular venous distension, thyromegaly, or carotid bruits. Lungs are clear to auscultation. Cardiac exam reveals regular rate and Rhythm. First and second heart sounds normal. No murmurs, rubs or gallops. Abdominal exam reveals normal bowel sounds, no masses, no organomegaly and no aortic enlargement. Extremities are nonedematous and both femoral and pedal pulses are normal. INTERNET SALES DIRECTOR: Alert and oriented 3. No focal weakness. - Constitutional Vitals: Temp Pulse Resp BP Pulse Ox 98.4 F 76 16 126/50 98 01/11/19 13:23 01/11/19 13:23 01/11/19 13:23 01/11/19 13:23 01/11/19 11:00 Results - Labs CBC & Chem 7: 01/11/19 04:22 01/11/19 04:22 Labs: Laboratory Last Values WBC 4.0 K/mm3 (4.5-11.0) L 01/11/19 04:22 RBC 2.74 M/mm3 (3.65-5.03) L 01/11/19 04:22 Hgb 6.9 gm/dl (11.8-15.2) L 01/11/19 04:22 Hct 22.2 % (35.5-45.6) L 01/11/19 04:22 MCV 81 fl (84-94) L 01/11/19 04:22 MCH 25 pg (28-32) L 01/11/19 04:22 MCHC 31 % (32-34) L 01/11/19 04:22 RDW 20.3 % (13.2-15.2) H 01/11/19 04:22 Plt Count 222 K/mm3 (140-440) 01/11/19 04:22 Add Manual Diff Complete 01/11/19 04:22 Total Counted 100 01/11/19 04:22 Seg Neuts % (Manual) 63.0 % (40.0-70.0) 01/11/19 04:22 19.0 % 01/11/19 04:22 15.0 % (13.4-35.0) 01/11/19 04:22 Reactive Lymphs % (Man) 0 % 01/11/19 04:22 3.0 % (0.0-7.3) 01/11/19 04:22 0 % (0.0-4.3) 01/11/19 04:22 0 % (0.0-1.8) 01/11/19 04:22 0 % 01/11/19 04:22 0 % 01/11/19 04:22 0 % 01/11/19 04:22 0 % 01/11/19 04:22 Nucleated RBC % 2.0 % (0.0-0.9) H 01/11/19 04:22 Seg Neutrophils # Man 2.5 K/mm3 (1.8-7.7) 01/11/19 04:22 Band Neutrophils # 0.8 K/mm3 01/11/19 04:22 0.6 K/mm3 (1.2-5.4) L 01/11/19 04:22 Abs React Lymphs (Man) 0.0 K/mm3 01/11/19 04:22 0.1 K/mm3 (0.0-0.8) 01/11/19 04:22 0.0 K/mm3 (0.0-0.4) 01/11/19 04:22 0.0 K/mm3 (0.0-0.1) 01/11/19 04:22 0.0 K/mm3 01/11/19 04:22 0.0 K/mm3 01/11/19 04:22 0.0 K/mm3 01/11/19 04:22 Blast Cells # 0.0 K/mm3 01/11/19 04:22 WBC Morphology Not Reportable 01/11/19 04:22 Hypersegmented Neuts Not Reportable 01/11/19 04:22 Hyposegmented Neuts Not Reportable 01/11/19 04:22 Hypogranular Neuts Not Reportable 01/11/19 04:22 Not Reportable 01/11/19 04:22 Not Reportable 01/11/19 04:22 Not Reportable 01/11/19 04:22 Not Reportable 01/11/19 04:22 Not Reportable 01/11/19 04:22 Not Reportable 01/11/19 04:22 Consistent w auto 01/11/19 04:22 Few 01/11/19 04:22 Plt Clumps, EDTA Not Reportable 01/11/19 04:22 Not Reportable 01/11/19 04:22 Not Reportable 01/11/19 04:22 Not Reportable 01/11/19 04:22 Plt Morphology Comment Not Reportable 01/11/19 04:22 RBC Morphology Not Reportable 01/11/19 04:22 Dimorphic RBCs Not Reportable 01/11/19 04:22 Not Reportable 01/11/19 04:22 1+ 01/11/19 04:22 Not Reportable 01/11/19 04:22 1+ 01/11/19 04:22 Not Reportable 01/11/19 04:22 Not Reportable 01/11/19 04:22 Not Reportable 01/11/19 04:22 Not Reportable 01/11/19 04:22 Not Reportable 01/11/19 04:22 Not Reportable 01/11/19 04:22 Not Reportable 01/11/19 04:22 Not Reportable 01/11/19 04:22 Not Reportable 01/11/19 04:22 Not Reportable 01/11/19 04:22 Not Reportable 01/11/19 04:22 Not Reportable 01/11/19 04:22 Not Reportable 01/11/19 04:22 Not Reportable 01/11/19 04:22 Not Reportable 01/11/19 04:22 Acanthocytes (Spur) Not Reportable 01/11/19 04:22 Rouleaux Not Reportable 01/11/19 04:22 Not Reportable 01/11/19 04:22 Not Reportable 01/11/19 04:22 Not Reportable 01/11/19 04:22 Not Reportable 01/11/19 04:22 Hem Pathologist Commnt No 01/11/19 04:22 Sodium 139 mmol/L (137-145) 01/11/19 04:22 Potassium 4.2 mmol/L (3.6-5.0) 01/11/19 04:22 Chloride 105.6 mmol/L (98-107) 01/11/19 04:22 Carbon Dioxide 24 mmol/L (22-30) 01/11/19 04:22 14 mmol/L 01/11/19 04:22 BUN 24 mg/dL (9-20) H 01/11/19 04:22 1.1 mg/dL (0.8-1.5) 01/11/19 04:22 Estimated GFR > 60 ml/min 01/11/19 04:22 22 % 01/11/19 04:22 Glucose 102 mg/dL (75-100) H 01/11/19 04:22 Calcium 7.9 mg/dL (8.4-10.2) L 01/11/19 04:22 Iron 11 ug/dL (49-181) L 01/10/19 07:30 TIBC 121 mcg/dL (250-450) L 01/10/19 07:30 200.9 ng/mL (13.0-400.0) 01/10/19 07:30 0.40 mg/dL (0.1-1.2) 01/09/19 15:36 AST 17 units/L (5-40) 01/09/19 15:36 ALT 14 units/L (7-56) 01/09/19 15:36 109 units/L (35-129) 01/09/19 15:36 6.1 g/dL (6.3-8.2) L 01/09/19 15:36 2.5 g/dL (3.9-5) L 01/09/19 15:36 0.7 % 01/09/19 15:36 Prostate Specific Ag 0.01 ng/mL (0.00-4.00) 01/11/19 04:22 Vitamin B12 1058 pg/mL (211-911) H 01/10/19 07:30 > 20 ng/mL (7.3-26.0) 01/10/19 07:30 Blood Type A POSITIVE 01/10/19 23:00 Antibody Screen Negative 01/10/19 23:00 Crossmatch See Detail 01/10/19 23:00 Active Medications - Current Medications Current Medications: Generic Name Dose Route Start Last Admin Trade Name Freq PRN Reason Stop Dose Admin Acetaminophen 650 mg 01/09/19 21:41 Tylenol PO Q4H PRN Pain MILD(1-3)/Fever >100.5/GRIFFITHS Amlodipine Besylate 5 mg 01/10/19 10:00 01/11/19 09:23 Norvasc PO Not Given QDAY DANNIE Aspirin 81 mg 01/10/19 10:00 01/11/19 09:23 Halfprin Ec PO Not Given DAILY [facility] Atorvastatin Calcium 10 mg 01/10/19 22:00 01/10/19 22:51 Lipitor PO 10 mg QHS DANNIE Administration Carvedilol 25 mg 01/09/19 22:00 01/11/19 09:20 Coreg PO 25 mg BID DANNIE Administration Docusate Sodium 100 mg 01/09/19 22:00 01/11/19 09:20 Colace PO 100 mg BID DANNIE Administration Ferrous Sulfate 325 mg 01/10/19 10:00 01/11/19 09:20 Feosol PO 325 mg QDAY DANNIE Administration Folic Acid 1 mg 01/10/19 10:00 01/11/19 09:21 Folvite PO 1 mg QDAY DANNIE Administration Sodium Chloride 500 mls @ 0 mls/hr 01/11/19 08:00 Nacl 0.9% 500 Ml IV 01/11/19 16:00 ONCE NR As Directed Multivitamins/Minerals 1 each 01/10/19 10:00 01/11/19 09:22 Theragran-M Tab PO 1 each QDAY DANNIE Administration Ondansetron HCl 4 mg 01/09/19 21:41 Zofran IV Q8H PRN Nausea And Vomiting Sodium Chloride 10 ml 01/09/19 22:00 01/11/19 09:22 Sodium Chloride Flush Syringe 10 Ml IV Not Given BID DANNIE Sodium Chloride 10 ml 01/09/19 21:41 Sodium Chloride Flush Syringe 10 Ml IV PRN PRN LINE FLUSH Tamsulosin HCl 0.4 mg 01/10/19 10:00 01/11/19 09:21 Flomax PO 0.4 mg QDAY DANNIE Administration Tramadol HCl 50 mg 01/09/19 21:44 Ultram PO Q4H PRN Pain (4-6) Nutrition/Malnutrition Assess - Dietary Evaluation Nutrition/Malnutrition Findings: Nutrition Notes Start: 01/10/19 10:50 Freq: Status: Active Protocol: Document 01/11/19 11:11 CP (Rec: 01/11/19 11:25 CP [id number]) Co-Sign 01/11/19 11:11 LP Nutrition Notes Need for Assessment generated from: MD Order,MST Initial or Follow up Assessment Current Diagnosis Hypertension Other Pertinent Diagnosis Chronic anemia, dementia Current Diet Regular Diet Labs/Tests BUN: 24 Glu: 102 Iron: 11 Pertinent Medications Reviewed Height 5 ft 10 in Weight 80.3 kg Usual Body Weight 109 kg Fine Body Weight (kg) 75.45 BMI 25.4 Weight change and time frame Pt stated that he lost 65 pounds in 2 years. Subjective/Other Information F/U for malnutrition screen. Pt reported loss of functional strength and denies any current edema. Noted moderate muscle and fat wasting during time of visit. Pt stated that his appetite is "pretty good" but only ate 60% of his breakfast due to "rotten wood ". Pt consumption based on food preferences. Pt was willing to try ONS. 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 No Is Patient Ambulatory and/or Out of Bed Yes REE-(Berkley-St. Jeor-ambulatory/OOB) [ 1929.525 [id number]] Calculation Used for Recommendations [facility] Additional Notes Pro: 1-1.2g/kg 80-96g/kg Fluid: 1mL/kcal or per MD request Nutrition Intervention Change Diet Order: Continue current Add Supplement/Snack (indicate name/kcal Ensure BID /protein ) Provides kCal: 700 Provides Protein (gm) 40 Goal #1 PO intake to meet at least 75% of energy and protein intake Goal #2 Weight maintenance/gain Anticipated Discharge Needs: Regular diet Follow-Up By: 01/15/19 Additional Comments F/U: PO intake/ONS tolerance
[2019-01-11 15:37] LABS: Hemoglobin 8.6 gm/dl (11.8-15.2)
[2019-01-11] MEDS ORDERED: FLUSH HEPARIN IV ONE (15:45)
--- NOTE | 2019-01-11 19:38 | Nuclear Medicine Report ---
PROCEDURE: NM GI BLEEDING SCAN TECHNIQUE: Standard gastrointestinal imaging was obtained in the anterior projection over 40 minutes. Angiographic blood flow images were also obtained. DOSE: 21.9 mCi 99m-Tc Ultratagged Red Blood Cells given IV. HISTORY: fall in [place] - ? source of blood loss - low s iron PRIORS: None FINDINGS: The tracer distribution is within normal limits. No focal abnormal uptake is seen on the angiographic or delayed images. IMPRESSION: Negative exam for gastrointestinal bleeding. This document is electronically signed by Erika Thompson MD., Jan 11 2019 07:35:57 PM ET
[2019-01-12] MEDS: COREG PO SCH ×2 (00:01→10:57)
[2019-01-12] MEDS: SODIUM CHLORIDE FLUSH SYRINGE 10 ML IV SCH ×2 (00:03→10:58)
[2019-01-12] MEDS: COLACE PO SCH ×2 (00:04→10:56)
[2019-01-12 06:39] LABS: Hemoglobin 8.9 gm/dl (11.8-15.2)
--- NOTE | 2019-01-12 07:14 | Discharge Summary ---
Providers - Providers Date of Admission: 01/10/19 16:34 Attending physician: JEANA FLORES MD 01/09/19 20:13 Consult to Physician [CONS] Stat Comment: Dr. Cordova spoke with Dr. Reece @ 1932 Consulting Provider: ELIZABET REECE Physician Instructions: Reason For Exam: anemia 01/09/19 22:09 Physical Therapy Evaluation and Treat [CONS] Routine Comment: Reason For Exam: history of frequent falls 01/10/19 16:34 Consult to Physician [CONS] Routine Comment: DANTE Consulting Provider: MICHAEL BURNETT Physician Instructions: CONSULT WAS CALLED TO /MARIANA Reason For Exam: iron deficiency anemia [facility] Reason for admission: Iron deficiency anemia Condition: Stable Pertinent studies: Nuclear scan negative for GI bleed Hospital course: Mr. 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 Reece With c/o of worsening anemia. 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 Patient has been receiving infusions to address his anemia. According to patient's patient hemoglobin has been as low as 4.0 within the last month. Patient also complains of generalized weakness and frequent falls. At baseline patient ambulates with walker. He states that even when using the walker he feels that his gait is unsteady. Admits to have been dark stools with iron supplementation. Denies dyspnea, cough, hemoptysis, headache fever, chills, recent sick contact. patient was admitted and extensive w/u was done by oncology. Next day his hemoglobin was 6.9 and transfused a unit of PRBC and post transfusion HGB was 8.6 and symptoms were getting better. GI was consulted and NM scan was done and no bleeding and patient was discharged home with follow up Dr Reece in the office for the results of work up and further treatment. patient was hemodynamically stable at the time of DC. Disposition: [id number]/[id number] HOME [facility] Time spent for discharge: 32 minutes - Discharge Diagnoses (1) Anemia Status: Acute Qualifiers: Anemia type: iron deficiency (2) Symptomatic anemia Status: Acute (3) Fall Status: Acute (4) Myeloproliferative disorder Status: Chronic (5) Prostate cancer Status: Chronic Core Measure Documentation - Palliative Care Palliative Care/ Comfort Measures: Not Applicable - Core Measures Any of the following diagnoses?: none Exam - Physical Exam Narrative exam: Not in cardiopulmonary distress. The patient appeared well nourished and normally developed. Vital signs as documented. Head exam is unremarkable. No scleral icterus . Neck is without jugular venous distension, thyromegaly, or carotid bruits. Lungs are clear to auscultation. Cardiac exam reveals regular rate and Rhythm. First and second heart sounds normal. No murmurs, rubs or gallops. Abdominal exam reveals normal bowel sounds, no masses, no organomegaly and no aortic enlargement. Extremities are nonedematous and both femoral and pedal pulses are normal. OFFICE ADMIN: Alert and oriented 3. No focal weakness. - Constitutional Vitals: Temp Pulse Resp BP Pulse Ox 99.5 F 73 20 132/53 94 01/12/19 02:00 01/12/19 02:00 01/12/19 02:00 01/12/19 02:00 01/12/19 02:00 Plan Activity: fall precautions Weight Bearing Status: Full Weight Bearing Diet: low salt Follow up with: ROMELIA ROTH MD [Primary Care Provider] - 3-5 Days ELIZABET REECE MD [Staff Physician] - 7 Days
[2019-01-12] MEDS: FEOSOL PO SCH (10:56)
[2019-01-12] MEDS: FLOMAX PO SCH (10:57)
[2019-01-12] MEDS: FOLVITE PO SCH (10:57)
[2019-01-12] MEDS: THERAGRAN-M Tab PO SCH (10:57)
[2019-01-12 10:58] VITALS: BP 124/50
== END 2019-01-12 11:40 | disposition home health service (06) | DRG 811 ==
LOC: ED 14:00 → 2B-ACE 21:41 → OBSVTOIN 01-10 16:34
PROVIDERS: ADMIT Internal Medicine; ATTEND Internal Medicine
PROC: 30233N1 Transfusion of Nonautologous Red Blood Cells into Peripheral Vein, Percutaneous Approach (ICD-10-PCS; principal; 2019-01-11)
DX: D50.9 Iron deficiency anemia, unspecified (principal); E43 Unspecified severe protein-calorie malnutrition; C94.6 Myelodysplastic disease, not elsewhere classified; C61 Malignant neoplasm of prostate; I10 Essential (primary) hypertension; F03.90 Unspecified dementia, unspecified severity, without behavioral disturbance, psychotic disturbance, mood disturbance, and anxiety; W18.39XA Other fall on same level, initial encounter; Z86.73 Personal history of transient ischemic attack (TIA), and cerebral infarction without residual deficits; Z92.3 Personal history of irradiation; Z90.49 Acquired absence of other specified parts of digestive tract; Z79.899 Other long term (current) drug therapy; Z79.82 Long term (current) use of aspirin; Y93.89 Activity, other specified; Y92.098 Other place in other non-institutional residence as the place of occurrence of the external cause; Y99.8 Other external cause status
CPT/HCPCS: 36415; 36430; 71260; 74177; 78278; 80048; 80053; 82106; 82270; 82378; 82607; 82728; 82747; 83550; 84153; 85007; 85014; 85018; 85025; 86301; 86850; 86900; 86901; 86920; G0378; A9270-GY; A9560; J1642; J7040; P9016; Q9967

== ENCOUNTER 2019-04-14 13:00 | Inpatient (IN) | payer MEDICARE, OTHER ==
--- NOTE | 2019-04-14 13:58 | Emergency Department Report ---
ED Extremity Problem HPI - General Chief complaint: Extremity Problem,Nontraumatic Stated complaint: LOWER EXTREMITY EDEMA Time Seen by Provider: 04/14/19 13:37 Source: family, EMS Mode of arrival: Stretcher Limitations: No Limitations - History of Present Illness MD Complaint: extremity swelling -: week(s) (2 weeks) Location: bilateral lower extremity History of Same: No -: No associated chest pain Radiation: none Consistency: constant Improves with: nothing Worsens with: nothing Associated Symptoms: denies: chest pain, shortness of breath, fever, myalgias, arthralgias, rash - Related Data Home Medications Medication Instructions Recorded Confirmed Last Taken Carvedilol [Coreg] 25 mg PO BID 12/29/16 01/10/19 01/09/19 09:00 Tamsulosin [Flomax] 0.4 mg PO QDAY 12/29/16 01/10/19 01/09/19 09:00 traMADol [Ultram 50 MG tab] 50 mg PO Q4HR PRN 08/07/17 01/10/19 Unknown Ferrous Sulfate [Iron 325 MG] 325 mg PO DAILY 01/10/19 01/10/19 01/09/19 09:00 Folic Acid [Folvite] 1 mg PO QDAY 01/10/19 01/10/19 01/09/19 09:00 Allergies Allergy/AdvReac Type Severity Reaction Status Date / Time No Known Allergies Allergy Verified 01/09/19 14:02 ED Review of Systems ROS: Stated complaint: LOWER EXTREMITY EDEMA Other details as noted in HPI Comment: All other systems reviewed and negative Constitutional: denies: chills, fever Eyes: denies: eye pain, eye discharge, vision change ENT: denies: ear pain, throat pain Respiratory: denies: cough, shortness of breath, wheezing Cardiovascular: denies: chest pain, palpitations Endocrine: no symptoms reported Gastrointestinal: denies: abdominal pain, nausea, diarrhea Genitourinary: denies: urgency, dysuria Musculoskeletal: other (Bilateral Lower Extremity Swelling.). 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 Myeloproliferative disorder - Surgical History Hx Appendectomy: Yes Additional Surgical History: BILATERAL ROTATOR CUFF REPAIR - Social History Smoking Status: Never Smoker Substance Use Type: None - Medications Home Medications: Home Medications Medication Instructions Recorded Confirmed Last Taken Type Carvedilol [Coreg] 25 mg PO BID 12/29/16 01/10/19 01/09/19 09:00 History Tamsulosin [Flomax] 0.4 mg PO QDAY 12/29/16 01/10/19 01/09/19 09:00 History traMADol [Ultram 50 MG tab] 50 mg PO Q4HR PRN 08/07/17 01/10/19 Unknown History Ferrous Sulfate [Iron 325 MG] 325 mg PO DAILY 01/10/19 01/10/19 01/09/19 09:00 History Folic Acid [Folvite] 1 mg PO QDAY 01/10/19 01/10/19 01/09/19 09:00 History ED Physical Exam - General Limitations: No Limitations General appearance: alert, in no apparent distress - Head Head exam: Present: atraumatic, normocephalic - Eye Eye exam: Present: normal appearance, PERRL - ENT ENT exam: Present: mucous membranes moist - Neck Neck exam: Present: normal inspection, full ROM - Respiratory Respiratory exam: Present: normal lung sounds bilaterally. Absent: respiratory distress - Cardiovascular Cardiovascular Exam: Present: regular rate, normal rhythm. Absent: systolic murmur, diastolic murmur, rubs, gallop - GI/Abdominal GI/Abdominal exam: Present: soft, normal bowel sounds. Absent: distended, tenderness, guarding, rebound, rigid - Rectal Rectal exam: Present: deferred - Extremities Exam Extremities exam: Present: pedal edema, other (Bilateral 4+ pedal pitting edema.) - Back Exam Back exam: Present: normal inspection - Neurological Exam Neurological exam: Present: alert, oriented X3 - Psychiatric Psychiatric exam: Present: normal affect, normal mood - Skin Skin exam: Present: warm, dry, intact, normal color. Absent: rash ED Course Vital Signs 04/14/19 04/14/19 13:25 14:43 Temperature 97.6 F Pulse Rate 70 Respiratory 20 18 Rate Blood Pressure 150/65 O2 Sat by Pulse 98 98 Oximetry - Consultations Consultation #1: 04/14/19 16:24 Patient will be admitted by the hospitalist Dr. Reece for further medical management. ED Medical Decision Making - Lab Data Result diagrams: 04/14/19 14:01 04/14/19 14:01 Lab Results 04/14/19 04/14/19 04/14/19 Range/Units 14:01 14:01 14:01 WBC 3.6 L (4.5-11.0) K/mm3 RBC 3.04 L (3.65-5.03) M/mm3 Hgb 8.4 L (11.8-15.2) gm/dl Hct 26.7 L (35.5-45.6) % MCV 88 (84-94) fl MCH 28 (28-32) pg MCHC 32 (32-34) % RDW 19.7 H (13.2-15.2) % Plt Count 237 (140-440) K/mm3 Add Manual Diff Complete Total Counted 100 Seg Neuts % (Manual) 55.0 (40.0-70.0) % Band Neutrophils % 7.0 % Lymphocytes % (Manual) 24.0 (13.4-35.0) % Reactive Lymphs % (Man) 1.0 % Monocytes % (Manual) 13.0 H (0.0-7.3) % Eosinophils % (Manual) 0 (0.0-4.3) % Basophils % (Manual) 0 (0.0-1.8) % Metamyelocytes % 0 % Myelocytes % 0 % Promyelocytes % 0 % Blast Cells % 0 % Nucleated RBC % Not Reportable Seg Neutrophils # Man 2.0 (1.8-7.7) K/mm3 Band Neutrophils # 0.3 K/mm3 Lymphocytes # (Manual) 0.9 L (1.2-5.4) K/mm3 Abs React Lymphs (Man) 0.0 K/mm3 Monocytes # (Manual) 0.5 (0.0-0.8) K/mm3 Eosinophils # (Manual) 0.0 (0.0-0.4) K/mm3 Basophils # (Manual) 0.0 (0.0-0.1) K/mm3 Metamyelocytes # 0.0 K/mm3 Myelocytes # 0.0 K/mm3 Promyelocytes # 0.0 K/mm3 Blast Cells # 0.0 K/mm3 WBC Morphology Not Reportable Hypersegmented Neuts Not Reportable Hyposegmented Neuts Not Reportable Hypogranular Neuts Not Reportable Smudge Cells Not Reportable Toxic Granulation Not Reportable Toxic Vacuolation Not Reportable Dohle Bodies Not Reportable Pelger-Huet Anomaly Not Reportable Gloria Rods Not Reportable Platelet Estimate Consistent w auto Clumped Platelets Not Reportable Plt Clumps, EDTA Not Reportable Large Platelets Few Giant Platelets Not Reportable Platelet Satelliting Not Reportable Plt Morphology Comment Not Reportable RBC Morphology Not Reportable Dimorphic RBCs Not Reportable Polychromasia Few Hypochromasia Not Reportable Poikilocytosis Not Reportable Anisocytosis Not Reportable Microcytosis Not Reportable Macrocytosis Not Reportable Spherocytes Few Pappenheimer Bodies Not Reportable Sickle Cells Not Reportable Target Cells Not Reportable Tear Drop Cells Not Reportable Ovalocytes Not Reportable Helmet Cells Not Reportable Hubbard-Creston Bodies Not Reportable Constantia Rings Not Reportable Agnieszka Cells Not Reportable Bite Cells Not Reportable Crenated Cell Not Reportable Elliptocytes Few Acanthocytes (Spur) Not Reportable Rouleaux Not Reportable Hemoglobin C Crystals Not Reportable Schistocytes Not Reportable Malaria parasites Not Reportable Robbin Bodies Not Reportable Hem Pathologist Commnt No PT 17.1 H (12.2-14.9) Sec. INR 1.43 H (0.87-1.13) APTT 32.7 (24.2-36.6) Sec. Sodium 140 (137-145) mmol/L Potassium 4.3 (3.6-5.0) mmol/L Chloride 105.1 (98-107) mmol/L Carbon Dioxide 26 (22-30) mmol/L Anion Gap 13 mmol/L BUN 18 (9-20) mg/dL Creatinine 0.9 (0.8-1.5) mg/dL Estimated GFR > 60 ml/min BUN/Creatinine Ratio 20 % Glucose 95 (75-100) mg/dL Calcium 8.3 L (8.4-10.2) mg/dL Total Bilirubin 0.60 (0.1-1.2) mg/dL AST 20 (5-40) units/L ALT 11 (7-56) units/L Alkaline Phosphatase 80 (35-129) units/L NT-Pro-B Natriuret Pep 1944 H (0-900) pg/mL Total Protein 5.9 L (6.3-8.2) g/dL Albumin 2.4 L (3.9-5) g/dL Albumin/Globulin Ratio 0.7 % - Radiology Data Radiology results: report reviewed - Medical Decision Making New Onset CHF. Will admit for further evaluation and management. Critical care attestation.: If time is entered above; I have spent that time in minutes in the direct care of this critically ill patient, excluding procedure time. ED Disposition Clinical Impression: New onset of congestive heart failure, Bilateral edema of lower extremity Disposition: OP ADMIT IP TO THIS HOSP Is pt being admited?: Yes Does the pt Need Aspirin: No Condition: Stable Referrals: ROMELIA ROTH MD [Primary Care Provider] - 3-5 Days
[2019-04-14 14:25] LABS: Hematocrit 26.7 % (35.5-45.6); Hemoglobin 8.4 gm/dl (11.8-15.2); Mean Corpuscular HGB Conc 32 % (32-34); Mean Corpuscular Volume 88 fl (84-94); Platelet Count 237 K/mm3 (140-440); Red Blood Count 3.04 M/mm3 (3.65-5.03); Red Cell Distribution Width 19.7 % (13.2-15.2)
[2019-04-14 14:30] LABS: INR 1.43 (0.87-1.13)
[2019-04-14 14:31] LABS: Partial Thromboplastin Time 32.7 Sec. (24.2-36.6)
--- NOTE | 2019-04-14 14:37 | XRay Report ---
CHEST 1 VIEW INDICATION: leg edema. COMPARISON: None. FINDINGS: Support devices: None. Heart: Normal. Lungs/Pleura: There are diffuse increased reticulonodular markings within both lungs. No significant effusion, no pneumothorax. Bilateral shoulder arthroplasties are noted. IMPRESSION: 1. Diffuse increased reticulonodular markings throughout both lungs. These are nonspecific but could be infectious/inflammatory in etiology. Signer Name: eJb Amato MD Signed: 04/14/2019 2:32 PM Workstation Name: [id number]
[2019-04-14 14:42] LABS: Alanine Aminotransferase 11 units/L (7-56); Albumin 2.4 g/dL (3.9-5); BUN/Creatinine Ratio 20; Blood Urea Nitrogen 18 mg/dL (9-20); Calcium 8.3 mg/dL (8.4-10.2); Hemolysis Index 3
--- NOTE | 2019-04-14 15:22 | Vascular Lab Report ---
DUPLEX DOPPLER LOWER EXTREMITY VEINS, BILATERAL INDICATION: Bilateral lower extremity swelling. TECHNIQUE: Duplex doppler imaging was performed through the veins of both lower extremities using venous lior shefali and other maneuvers. COMPARISON: None available. FINDINGS: Right Common Femoral vein: Negative. Right Superficial Femoral vein: Negative. Right Popliteal vein: Negative. Right Calf veins: Negative. Left Common Femoral vein: Negative. Left Superficial Femoral vein: Negative. Left Popliteal vein: Negative. Left Calf veins: Negative. Additional findings: There is a small amount of fluid at the level of the right knee joint. This coul d be effusion or bursitis. IMPRESSION: 1. No sonographic evidence for DVT in either lower extremity. Signer Name: Jeb Amato MD Signed: 04/14/2019 3:18 PM Workstation Name: [id number]
[2019-04-14 15:25] LABS: Band Neutrophils # (Manual) 0.3 K/mm3; Basophils % (Manual) 0 % (0.0-1.8); Eosinophils % (Manual) 0 % (0.0-4.3); Total Cells Counted 100
[2019-04-14 15:26] LABS: Large Platelets Few; Platelet Estimate Consistent w Auto; Spherocytes Few
--- NOTE | 2019-04-14 16:17 | History and Physical Report ---
History of Present Illness Chief complaint: He is tired, and his legs are really swollen History of present illness: 88 [facility]O Male [facility] Resident with Diastolic CHF, Dementia, MPD, HTN, CaP presents ot ED for evaluation. Pt states that he has experienced weakness and swelling in his legs "for some time now". Pt is confused and becomes tearful upon further interview and is subsequently unable to provide further history. Pt and son are at bedside and provides additional history. Pt family reports overall decline in patient condition over the past 2 weeks. Pt family acknowledges decreased exercise tolerance, progressive weakness, leg edema, Orthopnea/PND, Dypsnea with exertion, and increased requirement for assistance with activities of daily living. EMS notified, and upon arrival the patient was found to be in distress and transported to [facility]. Pt seen and evaluated in ED and found to have symptoms consistent with CHF Decompensation, Debility. Pt admitted to telemetry. Cardiology consulted in ED. PT consulted for weakness. Case management consulted regarding discharge planning. Prior admission 01/10/19 reviewed. All listed medication reconciled at time of admission. Past History Past Surgical History: appendectomy, Other (rotator cuff surery) Medications and Allergies Allergies Allergy/AdvReac Type Severity Reaction Status Date / Time No Known Allergies Allergy Verified 01/09/19 14:02 Home Medications Medication Instructions Recorded Confirmed Last Taken Type Carvedilol [Coreg] 25 mg PO BID 12/29/16 04/14/19 01/09/19 09:00 History Tamsulosin [Flomax] 0.4 mg PO QDAY 12/29/16 04/14/19 01/09/19 09:00 History traMADol [Ultram 50 MG tab] 50 mg PO Q4HR PRN 08/07/17 04/14/19 Unknown History Ferrous Sulfate [Iron 325 MG] 325 mg PO DAILY 01/10/19 04/14/19 01/09/19 09:00 History Folic Acid [Folvite] 1 mg PO QDAY 01/10/19 04/14/19 01/09/19 09:00 History Review of Systems Constitutional: weakness, no weight loss, no weight gain, no fever Ears, nose, mouth and throat: no ear pain, no ear discharge, no tinnitis, no nasal discharge Cardiovascular: leg edema, decreased exercise tolerance, no chest pain, no orthopnea, no palpitations Respiratory: no cough Gastrointestinal: no abdominal pain, no nausea, no constipation, no change in bowel habits Genitourinary Male: no dysuria, no hematuria, no discharge, no urinary hesitancy, no nocturia, no incontinence Rectal: no pain, no incontinence, no bleeding Musculoskeletal: no neck pain, no arm numbness/tingling, no hot joints, no muscle weakness, no muscle cramps Integumentary: no rash, no redness, no jaundice, no boils, no lesions Neurological: no transient paralysis, no paralysis, no headaches, no migraines Psychiatric: no memory loss, no change in sleep habits, no sleep disturbances, no hypersomnia, no change in libido Endocrine: no cold intolerance, no polyphagia, no polydipsia, no nocturia, no excessive sweating Hematologic/Lymphatic: no easy bruising, no easy bleeding, no lymphadenopathy, no lymphedema Allergic/Immunologic: no urticaria, no allergic rhinitis, no persistent infections, no anaphylaxis Exam - Constitutional Vitals: Temp Pulse Resp BP Pulse Ox 97.6 F 70 18 150/65 98 04/14/19 13:25 04/14/19 13:25 04/14/19 14:43 04/14/19 13:25 04/14/19 14:43 General appearance: Present: mild distress - EENT Eyes: Present: PERRL ENT: hearing intact, clear oral mucosa - Neck Neck: Present: supple, normal ROM - Respiratory Respiratory effort: normal Respiratory: bilateral: CTA - Cardiovascular Heart Sounds: Present: S1 & S2. Absent: rub, click - Extremities Extremities: pulses symmetrical, No edema Peripheral Pulses: within normal limits - Abdominal General gastrointestinal: Present: soft, non-tender, non-distended, normal bowel sounds Male genitourinary: Present: normal - Integumentary Integumentary: Present: clear, warm, dry - Musculoskeletal Musculoskeletal: gait normal, strength equal bilaterally - Psychiatric Psychiatric: appropriate mood/affect, intact judgment & insight - Neurologic Neurologic: CNII-XII intact, moves all extremities Results - Labs CBC & Chem 7: 04/15/19 04:54 04/15/19 04:54 Labs: Abnormal lab results 04/14/19 04/14/19 04/14/19 Range/Units 14:01 14:01 14:01 WBC 3.6 L (4.5-11.0) K/mm3 RBC 3.04 L (3.65-5.03) M/mm3 Hgb 8.4 L (11.8-15.2) gm/dl Hct 26.7 L (35.5-45.6) % RDW 19.7 H (13.2-15.2) % Monocytes % (Manual) 13.0 H (0.0-7.3) % Lymphocytes # (Manual) 0.9 L (1.2-5.4) K/mm3 PT 17.1 H (12.2-14.9) Sec. INR 1.43 H (0.87-1.13) Calcium 8.3 L (8.4-10.2) mg/dL NT-Pro-B Natriuret Pep 1944 H (0-900) pg/mL Total Protein 5.9 L (6.3-8.2) g/dL Albumin 2.4 L (3.9-5) g/dL Assessment and Plan - Patient Problems (1) CHF (congestive heart failure) Current Visit: Yes Status: Acute Qualifiers: Heart failure chronicity: acute on chronic Plan to address problem: Admit to telemetry, Echo, Cardiology consulted in ED, thyroid panel, Strict I/O, daily weight, Afterload reduction, diuresis, BNP, D dimer, CTA chest, supplemental oxygen, pulse oximetry, monitor uop q shift, to ensure negative fluid balance. 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 (3) Prostate cancer Current Visit: No Status: Chronic Plan to address problem: Continue current care, no urinary obstruction at this time, monitor uop q shift, bladder scan if si/sx or urinary retention, PSA level (4) HTN (hypertension) Current Visit: Yes Status: Acute Qualifiers: Hypertension type: essential hypertension Qualified Code(s): I10 - Essential (primary) hypertension Plan to address problem: Monitor bp q shift, continue medical management (5) DVT prophylaxis Current Visit: Yes Status: Acute Plan to address problem: SCD to BLE while in bed, supportive care.
[2019-04-14] MEDS ORDERED: ZOFRAN IV PRN (17:50)
[2019-04-14] MEDS ORDERED: TYLENOL PO PRN (17:50)
[2019-04-14] MEDS ORDERED: PROVENTIL IH PRN (17:50)
[2019-04-14] MEDS ORDERED: ULTRAM PO PRN (17:51)
[2019-04-14] MEDS: LASIX IV SCH (18:30)
[2019-04-14] MEDS ORDERED: LASIX ONE (18:30)
[2019-04-14 18:56] LABS: Free T4 (Free Thyroxine) 0.88 ng/dL (0.76-1.46)
[2019-04-14] MEDS: SODIUM CHLORIDE FLUSH SYRINGE 10 ML IV SCH (22:33)
[2019-04-14] MEDS: COREG PO SCH (22:33)
[2019-04-15] MEDS: LASIX IV SCH ×2 (05:43→17:19)
[2019-04-15] MEDS: SODIUM CHLORIDE FLUSH SYRINGE 10 ML IV PRN ×2 (05:43→22:22)
[2019-04-15 05:53] LABS: Hematocrit 26.3 % (35.5-45.6); Hemoglobin 8.3 gm/dl (11.8-15.2); Mean Corpuscular HGB Conc 32 % (32-34); Mean Corpuscular Volume 87 fl (84-94); Platelet Count 234 K/mm3 (140-440); Red Blood Count 3.03 M/mm3 (3.65-5.03); Red Cell Distribution Width 19.2 % (13.2-15.2)
[2019-04-15 06:19] LABS: BUN/Creatinine Ratio 21; Blood Urea Nitrogen 19 mg/dL (9-20); Calcium 7.8 mg/dL (8.4-10.2); Hemolysis Index 11
[2019-04-15] MEDS: COREG PO SCH ×2 (09:59→22:21)
[2019-04-15] MEDS: FEOSOL PO SCH (10:00)
[2019-04-15] MEDS: FLOMAX PO SCH (10:00)
[2019-04-15] MEDS: LOVENOX SUB-Q SCH (10:00)
[2019-04-15] MEDS: SODIUM CHLORIDE FLUSH SYRINGE 10 ML IV SCH ×2 (10:00→22:21)
[2019-04-15] MEDS: FOLVITE PO SCH (10:00)
[2019-04-15 10:44] LABS: Anisocytosis 1+; Band Neutrophils # (Manual) 1.5 K/mm3; Basophils % (Manual) 0 % (0.0-1.8); Eosinophils % (Manual) 0 % (0.0-4.3); Total Cells Counted 100
[2019-04-15 10:45] LABS: Macrocytosis Few; Ovalocytes Few; Platelet Estimate Consistent w Auto
--- NOTE | 2019-04-15 10:46 | Progress Note ---
Assessment and Plan Assessment and plan: Acute CHF exacerbation. Etiology of systolic or diastolic would be determined with echocardiogram. Cardiology consultation pending. Continue Coreg and IV Lasix. Myeloproliferative disorder. Continue supportive care. Outpatient oncology follow-up. History of prostate cancer. Continue current care. Hypothyroidism. Patient with elevated TSH. Check T3 and T4. Consider starting Synthroid. Hypertension. Resume antihypertensive medications. History Interval history: no new issues overnight Hospitalist Physical - Constitutional Vitals: Temp Pulse Resp BP Pulse Ox 98.0 F 62 18 131/58 93 04/15/19 03:58 04/15/19 09:59 04/15/19 03:58 04/15/19 09:59 04/15/19 03:58 General appearance: Present: no acute distress - EENT Eyes: Present: PERRL, EOM intact ENT: hearing intact, clear oral mucosa, dentition normal - Neck Neck: Present: supple, normal ROM - Respiratory Respiratory effort: normal Respiratory: bilateral: CTA - Cardiovascular Rhythm: regular Heart Sounds: Present: S1 & S2. Absent: gallop, rub - Extremities Extremities: no ischemia, No edema, Full ROM - Abdominal General gastrointestinal: soft, non-tender, non-distended, normal bowel sounds - Integumentary Integumentary: Present: clear, warm, dry - Neurologic Neurologic: CNII-XII intact, moves all extremities Results - Labs CBC & Chem 7: 04/15/19 04:54 04/15/19 04:54 Labs: Laboratory Last Values WBC 4.3 K/mm3 (4.5-11.0) L 04/15/19 04:54 RBC 3.03 M/mm3 (3.65-5.03) L 04/15/19 04:54 Hgb 8.3 gm/dl (11.8-15.2) L 04/15/19 04:54 Hct 26.3 % (35.5-45.6) L 04/15/19 04:54 MCV 87 fl (84-94) 04/15/19 04:54 MCH 27 pg (28-32) L 04/15/19 04:54 MCHC 32 % (32-34) 04/15/19 04:54 RDW 19.2 % (13.2-15.2) H 04/15/19 04:54 Plt Count 234 K/mm3 (140-440) 04/15/19 04:54 Add Manual Diff Complete 04/14/19 14:01 Total Counted 100 04/14/19 14:01 Seg Neuts % (Manual) 55.0 % (40.0-70.0) 04/14/19 14:01 7.0 % 04/14/19 14:01 24.0 % (13.4-35.0) 04/14/19 14:01 Reactive Lymphs % (Man) 1.0 % 04/14/19 14:01 13.0 % (0.0-7.3) H 04/14/19 14:01 0 % (0.0-4.3) 04/14/19 14:01 0 % (0.0-1.8) 04/14/19 14:01 0 % 04/14/19 14:01 0 % 04/14/19 14:01 0 % 04/14/19 14:01 0 % 04/14/19 14:01 Nucleated RBC % Not Reportable 04/14/19 14:01 Seg Neutrophils # Man 2.0 K/mm3 (1.8-7.7) 04/14/19 14:01 Band Neutrophils # 0.3 K/mm3 04/14/19 14:01 0.9 K/mm3 (1.2-5.4) L 04/14/19 14:01 Abs React Lymphs (Man) 0.0 K/mm3 04/14/19 14:01 0.5 K/mm3 (0.0-0.8) 04/14/19 14:01 0.0 K/mm3 (0.0-0.4) 04/14/19 14:01 0.0 K/mm3 (0.0-0.1) 04/14/19 14:01 0.0 K/mm3 04/14/19 14:01 0.0 K/mm3 04/14/19 14:01 0.0 K/mm3 04/14/19 14:01 Blast Cells # 0.0 K/mm3 04/14/19 14:01 WBC Morphology Not Reportable 04/14/19 14:01 Hypersegmented Neuts Not Reportable 04/14/19 14:01 Hyposegmented Neuts Not Reportable 04/14/19 14:01 Hypogranular Neuts Not Reportable 04/14/19 14:01 Not Reportable 04/14/19 14:01 Not Reportable 04/14/19 14:01 Not Reportable 04/14/19 14:01 Not Reportable 04/14/19 14:01 Not Reportable 04/14/19 14:01 Not Reportable 04/14/19 14:01 Consistent w auto 04/14/19 14:01 Not Reportable 04/14/19 14:01 Plt Clumps, EDTA Not Reportable 04/14/19 14:01 Few 04/14/19 14:01 Not Reportable 04/14/19 14:01 Not Reportable 04/14/19 14:01 Plt Morphology Comment Not Reportable 04/14/19 14:01 RBC Morphology Not Reportable 04/14/19 14:01 Dimorphic RBCs Not Reportable 04/14/19 14:01 Few 04/14/19 14:01 Not Reportable 04/14/19 14:01 Not Reportable 04/14/19 14:01 Not Reportable 04/14/19 14:01 Not Reportable 04/14/19 14:01 Not Reportable 04/14/19 14:01 Few 04/14/19 14:01 Not Reportable 04/14/19 14:01 Not Reportable 04/14/19 14:01 Not Reportable 04/14/19 14:01 Not Reportable 04/14/19 14:01 Not Reportable 04/14/19 14:01 Not Reportable 04/14/19 14:01 Not Reportable 04/14/19 14:01 Not Reportable 04/14/19 14:01 Not Reportable 04/14/19 14:01 Not Reportable 04/14/19 14:01 Not Reportable 04/14/19 14:01 Few 04/14/19 14:01 Acanthocytes (Spur) Not Reportable 04/14/19 14:01 Rouleaux Not Reportable 04/14/19 14:01 Not Reportable 04/14/19 14:01 Not Reportable 04/14/19 14:01 Not Reportable 04/14/19 14:01 Not Reportable 04/14/19 14:01 Hem Pathologist Commnt No 04/14/19 14:01 PT 17.1 Sec. (12.2-14.9) H 04/14/19 14:01 INR 1.43 (0.87-1.13) H 04/14/19 14:01 APTT 32.7 Sec. (24.2-36.6) 04/14/19 14:01 3206.17 ng/mlDDU (0-234) H 04/14/19 14:01 Sodium 142 mmol/L (137-145) 04/15/19 04:54 Potassium 3.5 mmol/L (3.6-5.0) L 04/15/19 04:54 Chloride 105.9 mmol/L (98-107) 04/15/19 04:54 Carbon Dioxide 27 mmol/L (22-30) 04/15/19 04:54 13 mmol/L 04/15/19 04:54 BUN 19 mg/dL (9-20) 04/15/19 04:54 0.9 mg/dL (0.8-1.5) 04/15/19 04:54 Estimated GFR > 60 ml/min 04/15/19 04:54 21 % 04/15/19 04:54 Glucose 109 mg/dL (75-100) H 04/15/19 04:54 Calcium 7.8 mg/dL (8.4-10.2) L 04/15/19 04:54 Magnesium 2.00 mg/dL (1.7-2.3) 04/14/19 18:20 0.60 mg/dL (0.1-1.2) 04/14/19 14:01 AST 20 units/L (5-40) 04/14/19 14:01 ALT 11 units/L (7-56) 04/14/19 14:01 80 units/L (35-129) 04/14/19 14:01 NT-Pro-B Natriuret Pep 1944 pg/mL (0-900) H 04/14/19 14:01 5.9 g/dL (6.3-8.2) L 04/14/19 14:01 2.4 g/dL (3.9-5) L 04/14/19 14:01 0.7 % 04/14/19 14:01 Prostate Specific Ag < 0.01 ng/mL (0.00-4.00) 04/15/19 06:57 TSH 8.520 mlU/mL (0.270-4.200) H 04/14/19 18:20 Free T4 0.88 ng/dL (0.76-1.46) 04/14/19 18:20 Active Medications - Current Medications Current Medications: Generic Name Dose Route Start Last Admin Trade Name Freq PRN Reason Stop Dose Admin Acetaminophen 650 mg 04/14/19 17:50 Tylenol PO Q4H PRN Pain MILD(1-3)/Fever >100.5/GRIFFITHS Albuterol 2.5 mg 04/14/19 17:50 Proventil IH Q4H PRN Shortness Of Breath Carvedilol 25 mg 04/14/19 22:00 04/15/19 09:59 Coreg PO 25 mg BID DANNIE Administration Enoxaparin Sodium 40 mg 04/15/19 10:00 04/15/19 10:00 Lovenox SUB-Q 40 mg QDAY DANNIE Administration Ferrous Sulfate 325 mg 04/15/19 10:00 04/15/19 10:00 Feosol PO 325 mg DAILY DANNIE Administration Folic Acid 1 mg 04/15/19 10:00 04/15/19 10:00 Folvite PO 1 mg QDAY DANNIE Administration Furosemide 40 mg 04/14/19 18:00 04/15/19 05:43 Lasix IV 40 mg BID@0600,1800 DANNIE Administration Ondansetron HCl 4 mg 04/14/19 17:50 Zofran IV Q8H PRN Nausea And Vomiting Sodium Chloride 10 ml 04/14/19 22:00 04/15/19 10:00 Sodium Chloride Flush Syringe 10 Ml IV 10 ml BID DANNIE Administration Sodium Chloride 10 ml 04/14/19 17:50 04/15/19 05:43 Sodium Chloride Flush Syringe 10 Ml IV 10 ml PRN PRN Administration LINE FLUSH Tamsulosin HCl 0.4 mg 04/15/19 10:00 04/15/19 10:00 Flomax PO 0.4 mg QDAY DANNIE Administration Tramadol HCl 50 mg 04/14/19 17:51 Ultram PO Q4H PRN Pain, Moderate
--- NOTE | 2019-04-15 11:26 | Cat Scan Report ---
CTA CHEST WITH CONTRAST INDICATION : Dyspnea. TECHNIQUE: Axial imaging performed through the chest, with contrast bolus timing set to maximize opa cification of the pulmonary arteries. Sagittal and coronal reformatted images. 3-plane MIP reformatte d images were obtained. All CT scans at this location are performed using CT dose reduction for ALAR A by means of automated exposure control. Omnipaque 350 100 mL of intravenous contrast administered. COMPARISON: None FINDINGS: Bolus: Contrast bolus timing is adequate. PTE: No filling defect is present to suggest PTE. Mediastinum: Mild cardiomegaly is evident. No pericardial effusion. The thoracic aorta is within nor mal limits. Normal thyroid gland, tracheobronchial tree and esophagus. No pathologic mediastinal brittni nopathy. Lungs: The interstitium is markedly prominent consistent with diffuse interstitial edema. No evidenc e for mass, infiltrate or pneumothorax. Trace bilateral pleural effusions are identified, left greate r than right Bones: Degenerative changes in the spine with nothing acute. Bilateral shoulder replacements are not ed. Upper abdomen: Limited images of the upper abdomen demonstrate a 2.1 cm calcified gallstone in a non distended gallbladder. IMPRESSION: No evidence for pulmonary embolus. CHF. Cholelithiasis. Signer Name: Lavell Patten Jr, MD Signed: 04/15/2019 11:21 AM Workstation Name: [id number]
--- NOTE | 2019-04-15 11:28 | Consultation ---
History of Present Illness Consult date: 04/15/19 Consult reason: congestive heart failure History of present illness: Patient is an 88-year old male who [facility] of [facility] edema, admitted with CHF. Chest x-ray reports diffuse nonspecific reticulonodular marking throughout both lungs. Lower extremity venous duplex is negative for DVT and chest CTA is negative for PE. ECG is normal sinus rhythm with right bundle branch block. Today, patient reports he is feeling better. He admits his lower extremity edema has improved and he is diuresing well. There are no complaints of chest pain, no shortness of breath, no palpitations. Past History Past Surgical History: appendectomy, Other (rotator cuff surery) Medications and Allergies Allergies Allergy/AdvReac Type Severity Reaction Status Date / Time No Known Allergies Allergy Verified 01/09/19 14:02 Home Medications Medication Instructions Recorded Confirmed Last Taken Type Carvedilol [Coreg] 25 mg PO BID 12/29/16 04/14/19 01/09/19 09:00 History Tamsulosin [Flomax] 0.4 mg PO QDAY 12/29/16 04/14/19 01/09/19 09:00 History traMADol [Ultram 50 MG tab] 50 mg PO Q4HR PRN 08/07/17 04/14/19 Unknown History Ferrous Sulfate [Iron 325 MG] 325 mg PO DAILY 01/10/19 04/14/19 01/09/19 09:00 History Folic Acid [Folvite] 1 mg PO QDAY 01/10/19 04/14/19 01/09/19 09:00 History Active Meds: Active Medications Acetaminophen (Tylenol) 650 mg PO Q4H PRN PRN Reason: Pain MILD(1-3)/Fever >100.5/GRIFFITHS Albuterol (Proventil) 2.5 mg IH Q4H PRN PRN Reason: Shortness Of Breath Carvedilol (Coreg) 25 mg PO BID [facility] Last Admin: 04/15/19 09:59 Dose: 25 mg Documented by: Enoxaparin Sodium (Lovenox) 40 mg SUB-Q QDAY [facility] Last Admin: 04/15/19 10:00 Dose: 40 mg Documented by: Ferrous Sulfate (Feosol) 325 mg PO DAILY [facility] Last Admin: 04/15/19 10:00 Dose: 325 mg Documented by: Folic Acid (Folvite) 1 mg PO QDAY [facility] Last Admin: 04/15/19 10:00 Dose: 1 mg Documented by: Furosemide (Lasix) 40 mg IV BID@0600,1800 [facility] Last Admin: 04/15/19 05:43 Dose: 40 mg Documented by: Ondansetron HCl (Zofran) 4 mg IV Q8H PRN PRN Reason: Nausea And Vomiting Sodium Chloride (Sodium Chloride Flush Syringe 10 Ml) 10 ml IV BID [facility] Last Admin: 04/15/19 10:00 Dose: 10 ml Documented by: Sodium Chloride (Sodium Chloride Flush Syringe 10 Ml) 10 ml IV PRN PRN PRN Reason: LINE FLUSH Last Admin: 04/15/19 05:43 Dose: 10 ml Documented by: Tamsulosin HCl (Flomax) 0.4 mg PO QDAY [facility] Last Admin: 04/15/19 10:00 Dose: 0.4 mg Documented by: Tramadol HCl (Ultram) 50 mg PO Q4H PRN PRN Reason: Pain, Moderate Physical Examination Vital Signs Temp Pulse Resp BP Pulse Ox 97.6 F 70 20 150/65 98 04/14/19 13:25 04/14/19 13:25 04/14/19 13:25 04/14/19 13:25 04/14/19 13:25 General appearance: no acute distress HEENT: Positive: PERRL Neck: Positive: trachea midline Cardiac: Positive: Reg Rate and Rhythm Lungs: Positive: Decreased Breath Sounds Neuro: Positive: Grossly Intact, Weakness Extremities: Present: +2 Edema Results 04/15/19 04:54 04/15/19 04:54 Cardiac Enzymes 04/14/19 Range/Units 14:01 AST 20 (5-40) units/L Coagulation 04/14/19 Range/Units 14:01 PT 17.1 H (12.2-14.9) Sec. INR 1.43 H (0.87-1.13) APTT 32.7 (24.2-36.6) Sec. CBC 04/14/19 04/15/19 Range/Units 14:01 04:54 WBC 3.6 L 4.3 L (4.5-11.0) K/mm3 RBC 3.04 L 3.03 L (3.65-5.03) M/mm3 Hgb 8.4 L 8.3 L (11.8-15.2) gm/dl Hct 26.7 L 26.3 L (35.5-45.6) % Plt Count 237 234 (140-440) K/mm3 Comprehensive Metabolic Panel 04/14/19 04/15/19 Range/Units 14:01 04:54 Sodium 140 142 (137-145) mmol/L Potassium 4.3 3.5 L (3.6-5.0) mmol/L Chloride 105.1 105.9 (98-107) mmol/L Carbon Dioxide 26 27 (22-30) mmol/L BUN 18 19 (9-20) mg/dL Creatinine 0.9 0.9 (0.8-1.5) mg/dL Glucose 95 109 H (75-100) mg/dL Calcium 8.3 L 7.8 L (8.4-10.2) mg/dL AST 20 (5-40) units/L ALT 11 (7-56) units/L Alkaline Phosphatase 80 (35-129) units/L Total Protein 5.9 L (6.3-8.2) g/dL Albumin 2.4 L (3.9-5) g/dL
[2019-04-16 04:48] LABS: Hematocrit 26.2 % (35.5-45.6); Hemoglobin 8.4 gm/dl (11.8-15.2); Mean Corpuscular HGB Conc 32 % (32-34); Mean Corpuscular Volume 86 fl (84-94); Platelet Count 220 K/mm3 (140-440); Red Blood Count 3.04 M/mm3 (3.65-5.03); Red Cell Distribution Width 19.6 % (13.2-15.2)
[2019-04-16 05:08] LABS: BUN/Creatinine Ratio 19; Blood Urea Nitrogen 19 mg/dL (9-20); Calcium 7.7 mg/dL (8.4-10.2); Hemolysis Index 1
[2019-04-16] MEDS: LASIX IV SCH ×2 (05:19→17:54)
[2019-04-16] MEDS: SODIUM CHLORIDE FLUSH SYRINGE 10 ML IV PRN (05:19)
[2019-04-16 06:14] LABS: Anisocytosis 1+; Basophils % (Manual) 0 % (0.0-1.8); Eosinophils % (Manual) 0 % (0.0-4.3); Total Cells Counted 100
[2019-04-16 06:15] LABS: Platelet Estimate Consistent w Auto; Stomatocytes Rare
--- NOTE | 2019-04-16 08:59 | Progress Note ---
Assessment and Plan Bilateral lower extremity edema Chest x-ray in the hospital shows severe bilateral groundglass opacities in the lung aragon, questionable pulmonary edema, versus pulmonary fibrosis or an inflammatory pneumonitis. Echocardiogram on this presentation shows left ventricular ejection fraction 45-50%, mild aortic stenosis. RBBB, chronic Hypertension Anemia Recommendations: Repeat a chest x-ray. If there is significant clearing after initial diuretics this would indicate pulmonary edema. Otherwise, recommend pulmonary consultation and assessment for a primary pulmonary cause of bilateral diffuse interstitial groundglass opacities. Subjective Date of service: 04/16/19 Interval history: Patient reports he is feeling better. Lower extremity edema is improving. Objective Vital Signs Temp Pulse Pulse Pulse Pulse Resp BP 04/16/19 08:44 98.3 F 67 18 04/16/19 04:39 98 F 72 18 04/16/19 04:00 76 04/16/19 00:17 98.6 F 79 18 04/15/19 22:21 78 171/62 04/15/19 20:00 72 04/15/19 19:25 98.0 F 78 18 171/62 04/15/19 16:16 97.4 F L 18 138/48 04/15/19 12:00 64 04/15/19 10:50 04/15/19 10:00 68 69 69 69 18 04/15/19 09:59 62 131/58 04/15/19 09:58 131/58 BP Pulse Ox 04/16/19 08:44 134/54 94 04/16/19 04:39 141/78 99 04/16/19 04:00 04/16/19 00:17 162/65 95 04/15/19 22:21 04/15/19 20:00 04/15/19 19:25 96 04/15/19 16:16 04/15/19 12:00 04/15/19 10:50 93 04/15/19 10:00 98 04/15/19 09:59 04/15/19 09:58 - Physical Examination General: No Apparent Distress HEENT: Positive: PERRL Neck: Positive: trachea midline Cardiac: Positive: Reg Rate and Rhythm Lungs: Positive: Decreased Breath Sounds Neuro: Positive: Grossly Intact, Weakness Extremities: Present: +1 Edema - Labs and Meds CBC 04/16/19 Range/Units 04:18 WBC 4.0 L (4.5-11.0) K/mm3 RBC 3.04 L (3.65-5.03) M/mm3 Hgb 8.4 L (11.8-15.2) gm/dl Hct 26.2 L (35.5-45.6) % Plt Count 220 (140-440) K/mm3 Comprehensive Metabolic Panel 04/16/19 Range/Units 04:18 Sodium 141 (137-145) mmol/L Potassium 3.4 L (3.6-5.0) mmol/L Chloride 102.6 (98-107) mmol/L Carbon Dioxide 29 (22-30) mmol/L BUN 19 (9-20) mg/dL Creatinine 1.0 (0.8-1.5) mg/dL Glucose 104 H (75-100) mg/dL Calcium 7.7 L (8.4-10.2) mg/dL
[2019-04-16] MEDS ORDERED: K-DUR PO ONE (09:38)
[2019-04-16] MEDS: LOVENOX SUB-Q SCH (09:54)
[2019-04-16] MEDS: FLOMAX PO SCH (09:54)
[2019-04-16] MEDS: FOLVITE PO SCH (09:54)
[2019-04-16] MEDS: FEOSOL PO SCH (09:54)
[2019-04-16] MEDS: POTASSIUM CHLORIDE PO SCH ×2 (09:55→17:54)
[2019-04-16] MEDS: COREG PO SCH ×2 (09:56→22:52)
[2019-04-16] MEDS: SODIUM CHLORIDE FLUSH SYRINGE 10 ML IV SCH ×2 (09:57→22:56)
--- NOTE | 2019-04-16 10:32 | Progress Note ---
Assessment and Plan Assessment and plan: Acute on chronic systolic CHF exacerbation. Cardiology following. Continue Coreg and IV Lasix. Myeloproliferative disorder. Continue supportive care. Outpatient oncology follow-up. History of prostate cancer. Continue current care. Hypothyroidism. Patient with elevated TSH. Check T3 and T4. Consider starting Synthroid. Hypertension. Resume antihypertensive medications. Hypokalemia.Repeat and recheck I discussed with patient and son at bedside History Interval history: feels better less leg swelling less shortness of breath Hospitalist Physical - Physical exam Narrative exam: Gen: Not in acute distress, lying in bed, HEENT: Normocephalic, atraumatic Neck: supple, no JVD Heart: S1 and S2 reg, no murmurs, rubs or gallop Lungs: Bilateral basal crackles, no rhonchi Abd: soft, non tender, non distended, normal BS, Ext: Bilateral leg edema,no clubbing, no cyanosis Neuro: Awake,alert, Oriented X 3. No focal neuro signs Psych: normal mood - Constitutional Vitals: Temp Pulse Resp BP Pulse Ox 98.3 F 70 18 130/70 94 04/16/19 08:44 04/16/19 09:56 04/16/19 08:44 04/16/19 09:56 04/16/19 08:44 General appearance: Present: no acute distress Results - Labs CBC & Chem 7: 04/16/19 04:18 04/16/19 04:18 Labs: Laboratory Last Values WBC 4.0 K/mm3 (4.5-11.0) L 04/16/19 04:18 RBC 3.04 M/mm3 (3.65-5.03) L 04/16/19 04:18 Hgb 8.4 gm/dl (11.8-15.2) L 04/16/19 04:18 Hct 26.2 % (35.5-45.6) L 04/16/19 04:18 MCV 86 fl (84-94) 04/16/19 04:18 MCH 28 pg (28-32) 04/16/19 04:18 MCHC 32 % (32-34) 04/16/19 04:18 RDW 19.6 % (13.2-15.2) H 04/16/19 04:18 Plt Count 220 K/mm3 (140-440) 04/16/19 04:18 Add Manual Diff Complete 04/16/19 04:18 Total Counted 100 04/16/19 04:18 Seg Neuts % (Manual) 68.0 % (40.0-70.0) 04/16/19 04:18 1.0 % 04/16/19 04:18 23.0 % (13.4-35.0) 04/16/19 04:18 Reactive Lymphs % (Man) 0 % 04/16/19 04:18 8.0 % (0.0-7.3) H 04/16/19 04:18 0 % (0.0-4.3) 04/16/19 04:18 0 % (0.0-1.8) 04/16/19 04:18 0 % 04/16/19 04:18 0 % 04/16/19 04:18 0 % 04/16/19 04:18 0 % 04/16/19 04:18 Nucleated RBC % Not Reportable 04/16/19 04:18 Seg Neutrophils # Man 2.7 K/mm3 (1.8-7.7) 04/16/19 04:18 Band Neutrophils # 0.0 K/mm3 04/16/19 04:18 0.9 K/mm3 (1.2-5.4) L 04/16/19 04:18 Abs React Lymphs (Man) 0.0 K/mm3 04/16/19 04:18 0.3 K/mm3 (0.0-0.8) 04/16/19 04:18 0.0 K/mm3 (0.0-0.4) 04/16/19 04:18 0.0 K/mm3 (0.0-0.1) 04/16/19 04:18 0.0 K/mm3 04/16/19 04:18 0.0 K/mm3 04/16/19 04:18 0.0 K/mm3 04/16/19 04:18 Blast Cells # 0.0 K/mm3 04/16/19 04:18 WBC Morphology Not Reportable 04/16/19 04:18 Hypersegmented Neuts Not Reportable 04/16/19 04:18 Hyposegmented Neuts Not Reportable 04/16/19 04:18 Hypogranular Neuts Not Reportable 04/16/19 04:18 Not Reportable 04/16/19 04:18 Not Reportable 04/16/19 04:18 Not Reportable 04/16/19 04:18 Not Reportable 04/16/19 04:18 Not Reportable 04/16/19 04:18 Not Reportable 04/16/19 04:18 Consistent w auto 04/16/19 04:18 Not Reportable 04/16/19 04:18 Plt Clumps, EDTA Not Reportable 04/16/19 04:18 Not Reportable 04/16/19 04:18 Not Reportable 04/16/19 04:18 Not Reportable 04/16/19 04:18 Plt Morphology Comment Not Reportable 04/16/19 04:18 RBC Morphology Not Reportable 04/16/19 04:18 Dimorphic RBCs Not Reportable 04/16/19 04:18 Not Reportable 04/16/19 04:18 Not Reportable 04/16/19 04:18 Not Reportable 04/16/19 04:18 1+ 04/16/19 04:18 Not Reportable 04/16/19 04:18 Not Reportable 04/16/19 04:18 Not Reportable 04/16/19 04:18 Not Reportable 04/16/19 04:18 Not Reportable 04/16/19 04:18 Not Reportable 04/16/19 04:18 Not Reportable 04/16/19 04:18 Not Reportable 04/16/19 04:18 Rare 04/16/19 04:18 Not Reportable 04/16/19 04:18 Not Reportable 04/16/19 04:18 Not Reportable 04/16/19 04:18 Not Reportable 04/16/19 04:18 Not Reportable 04/16/19 04:18 Not Reportable 04/16/19 04:18 Few 04/16/19 04:18 Acanthocytes (Spur) Not Reportable 04/16/19 04:18 Rouleaux Not Reportable 04/16/19 04:18 Not Reportable 04/16/19 04:18 Not Reportable 04/16/19 04:18 Not Reportable 04/16/19 04:18 Not Reportable 04/16/19 04:18 Hem Pathologist Commnt No 04/16/19 04:18 PT 17.1 Sec. (12.2-14.9) H 04/14/19 14:01 INR 1.43 (0.87-1.13) H 04/14/19 14:01 APTT 32.7 Sec. (24.2-36.6) 04/14/19 14:01 3206.17 ng/mlDDU (0-234) H 04/14/19 14:01 Sodium 141 mmol/L (137-145) 04/16/19 04:18 Potassium 3.4 mmol/L (3.6-5.0) L 04/16/19 04:18 Chloride 102.6 mmol/L (98-107) 04/16/19 04:18 Carbon Dioxide 29 mmol/L (22-30) 04/16/19 04:18 13 mmol/L 04/16/19 04:18 BUN 19 mg/dL (9-20) 04/16/19 04:18 1.0 mg/dL (0.8-1.5) 04/16/19 04:18 Estimated GFR > 60 ml/min 04/16/19 04:18 19 % 04/16/19 04:18 Glucose 104 mg/dL (75-100) H 04/16/19 04:18 POC Glucose 118 (70-105) H 04/15/19 12:45 Calcium 7.7 mg/dL (8.4-10.2) L 04/16/19 04:18 Magnesium 2.00 mg/dL (1.7-2.3) 04/14/19 18:20 0.60 mg/dL (0.1-1.2) 04/14/19 14:01 AST 20 units/L (5-40) 04/14/19 14:01 ALT 11 units/L (7-56) 04/14/19 14:01 80 units/L (35-129) 04/14/19 14:01 NT-Pro-B Natriuret Pep 1944 pg/mL (0-900) H 04/14/19 14:01 5.9 g/dL (6.3-8.2) L 04/14/19 14:01 2.4 g/dL (3.9-5) L 04/14/19 14:01 0.7 % 04/14/19 14:01 Prostate Specific Ag < 0.01 ng/mL (0.00-4.00) 04/15/19 06:57 TSH 8.520 mlU/mL (0.270-4.200) H 04/14/19 18:20 Free T4 0.96 ng/dL (0.76-1.46) 04/15/19 06:00 Active Medications - Current Medications Current Medications: Generic Name Dose Route Start Last Admin Trade Name Freq PRN Reason Stop Dose Admin Acetaminophen 650 mg 04/14/19 17:50 Tylenol PO Q4H PRN Pain MILD(1-3)/Fever >100.5/GRIFFITHS Albuterol 2.5 mg 04/14/19 17:50 Proventil IH Q4H PRN Shortness Of Breath Carvedilol 25 mg 04/14/19 22:00 04/16/19 09:56 Coreg PO 25 mg BID DANNIE Administration Enoxaparin Sodium 40 mg 04/15/19 10:00 04/16/19 09:54 Lovenox SUB-Q 40 mg QDAY DANNIE Administration Ferrous Sulfate 325 mg 04/15/19 10:00 04/16/19 09:54 Feosol PO 325 mg DAILY DANNIE Administration Folic Acid 1 mg 04/15/19 10:00 04/16/19 09:54 Folvite PO 1 mg QDAY DANNIE Administration Furosemide 40 mg 04/14/19 18:00 04/16/19 05:19 Lasix IV 40 mg BID@0600,1800 DANNIE Administration Ondansetron HCl 4 mg 04/14/19 17:50 Zofran IV Q8H PRN Nausea And Vomiting Potassium Chloride 40 meq 04/16/19 10:00 04/16/19 09:55 Potassium Chloride PO 04/16/19 16:01 40 meq Q6H DANNIE Administration Sodium Chloride 10 ml 04/14/19 22:00 04/16/19 09:57 Sodium Chloride Flush Syringe 10 Ml IV 10 ml BID DANNIE Administration Sodium Chloride 10 ml 04/14/19 17:50 04/16/19 05:19 Sodium Chloride Flush Syringe 10 Ml IV 10 ml PRN PRN Administration LINE FLUSH Tamsulosin HCl 0.4 mg 04/15/19 10:00 04/16/19 09:54 Flomax PO 0.4 mg QDAY DANNIE Administration Tramadol HCl 50 mg 04/14/19 17:51 Ultram PO Q4H PRN Pain, Moderate
[2019-04-17] MEDS: SODIUM CHLORIDE FLUSH SYRINGE 10 ML IV PRN (05:40)
[2019-04-17] MEDS: LASIX IV SCH (05:40)
[2019-04-17] MEDS: FLOMAX PO SCH (09:07)
[2019-04-17] MEDS: FEOSOL PO SCH (09:07)
[2019-04-17] MEDS: FOLVITE PO SCH (09:07)
[2019-04-17] MEDS: LOVENOX SUB-Q SCH (09:07)
[2019-04-17] MEDS: COREG PO SCH ×2 (09:09→21:41)
--- NOTE | 2019-04-17 10:18 | Progress Note ---
<ALVERTO TRACY - Last Filed: 04/17/19 10:17> Assessment and Plan Bilateral lower extremity edema Chest x-ray in the hospital shows severe bilateral groundglass opacities in the lung aragon, questionable pulmonary edema, versus pulmonary fibrosis or an inflammatory pneumonitis. Echocardiogram on this presentation shows left ventricular ejection fraction 45-50%, mild aortic stenosis. RBBB, chronic Hypertension Anemia Recommendations: We will repeat a chest x-ray. If there is significant clearing after initial diuretics this would indicate pulmonary edema. Otherwise, recommend pulmonary consultation and assessment for a primary pulmonary cause of bilateral diffuse interstitial groundglass opacities. Subjective Date of service: 04/17/19 Interval history: Patient reports he is feeling better. Lower extremity edema is resolving. Objective Vital Signs Temp Pulse Resp BP BP Pulse Ox 04/17/19 09:09 45 L 119/41 04/17/19 07:34 98.0 F 45 L 18 119/41 94 04/17/19 03:46 98.3 F 72 19 118/42 94 04/17/19 02:00 89 04/16/19 23:01 98.5 F 89 18 141/54 93 04/16/19 22:52 94 H 20 129/53 04/16/19 21:15 97 04/16/19 19:24 99.1 F 94 H 20 129/53 96 04/16/19 17:00 78 04/16/19 13:49 95 04/16/19 12:00 97.9 F 70 19 124/44 98 - Physical Examination General: No Apparent Distress HEENT: Positive: PERRL Neck: Positive: trachea midline Cardiac: Positive: Reg Rate and Rhythm Lungs: Positive: Decreased Breath Sounds Neuro: Positive: Grossly Intact, Weakness Extremities: Absent: edema - Labs and Meds Comprehensive Metabolic Panel 04/17/19 Range/Units 05:22 Potassium 3.7 (3.6-5.0) mmol/L <JORGE LUIS CAMERON - Last Filed: 04/17/19 19:58> Assessment and Plan I have seen and evaluated the patient and agree with the assessment and plan. Recommend continue medical therapy with BB. Gentle duresis as needed. Objective Vital Signs Temp Pulse Resp BP Pulse Ox 04/17/19 19:21 99.2 F 79 19 119/47 94 04/17/19 16:08 98.7 F 79 18 130/50 94 04/17/19 12:04 97.8 F 85 18 119/45 95 04/17/19 09:09 45 L 119/41 04/17/19 07:34 98.0 F 45 L 18 119/41 94 04/17/19 03:46 98.3 F 72 19 118/42 94 04/17/19 02:00 89 04/16/19 23:01 98.5 F 89 18 141/54 93 04/16/19 22:52 94 H 20 129/53 04/16/19 21:15 97 - Labs and Meds Comprehensive Metabolic Panel 04/17/19 Range/Units 05:22 Potassium 3.7 (3.6-5.0) mmol/L
--- NOTE | 2019-04-17 12:23 | XRay Report ---
CHEST 1 VIEW INDICATION: Shortness of breath. COMPARISON: 04/14/2019 FINDINGS: Support devices: None. Heart: Within normal limits. Lungs/Pleura: Decreased prominence of the interstitium probably represents decreased pulmonary inters titial edema. No consolidation, pleural effusion or pneumothorax is identified. Additional findings: None. IMPRESSION: Mild improvement in pulmonary congestion. Signer Name: Lavell Patten Jr, MD Signed: 04/17/2019 12:18 PM Workstation Name: [id number]
--- NOTE | 2019-04-17 15:21 | Discharge Summary ---
Providers - Providers Date of Admission: 04/14/19 17:50 Attending physician: JORGE LUIS WHEELER 04/14/19 17:53 Consult to Physician [CONS] Routine Comment: Consulting Provider: LOYD GORDILLO Physician Instructions: Reason For Exam: chf 04/14/19 21:20 Consult to Case Management [CONS] Routine Services Needed at Discharge: Guest Services Notified:: bilingual patient support caseworker Additional Physician Instructions: D/C Planning Occupational Therapy Evaluate and Treat [CONS] Routine Comment: Reason For Exam: weakness Physical Therapy Evaluation and Treat [CONS] Routine Comment: Reason For Exam: deconditioning 04/15/19 06:56 Consult to Wound/ET Nurse [CONS] Routine Reason For Exam: wound eval [facility] Hospitalization Condition: Stable Disposition: DC-30 STILL A PATIENT Exam - Constitutional Vitals: Temp Pulse Resp BP Pulse Ox 97.8 F 85 18 119/45 95 04/17/19 12:04 04/17/19 12:04 04/17/19 12:04 04/17/19 12:04 04/17/19 12:04 Plan Follow up with: ROMELIA ROTH MD [Primary Care Provider] - 3-5 Days
--- NOTE | 2019-04-17 17:34 | Progress Note ---
Assessment and Plan Assessment and plan: Acute on chronic systolic CHF exacerbation. Cardiology following. CXR shows improvement Continue Coreg and IV Lasix. Myeloproliferative disorder. Continue supportive care. Outpatient oncology follow-up. History of prostate cancer. Continue current care. Hypothyroidism. Patient with elevated TSH. Check T3 and T4. Consider starting Synthroid. Hypertension. Resume antihypertensive medications. Hypokalemia.Repeat and recheck I discussed with patient and son at bedside History Interval history: feels better less leg swelling less shortness of breath Hospitalist Physical - Physical exam Narrative exam: Gen: Not in acute distress, lying in bed, HEENT: Normocephalic, atraumatic Neck: supple, no JVD Heart: S1 and S2 reg, no murmurs, rubs or gallop Lungs: Bilateral basal crackles, no rhonchi Abd: soft, non tender, non distended, normal BS, Ext: Bilateral leg edema,no clubbing, no cyanosis Neuro: Awake,alert, Oriented X 3. No focal neuro signs Psych: normal mood - Constitutional Vitals: Temp Pulse Resp BP Pulse Ox 98.7 F 79 18 130/50 94 04/17/19 16:08 04/17/19 16:08 04/17/19 16:08 04/17/19 16:08 04/17/19 16:08 General appearance: Present: no acute distress Results - Labs CBC & Chem 7: 04/16/19 04:18 04/17/19 05:22 Labs: Laboratory Last Values WBC 4.0 K/mm3 (4.5-11.0) L 04/16/19 04:18 RBC 3.04 M/mm3 (3.65-5.03) L 04/16/19 04:18 Hgb 8.4 gm/dl (11.8-15.2) L 04/16/19 04:18 Hct 26.2 % (35.5-45.6) L 04/16/19 04:18 MCV 86 fl (84-94) 04/16/19 04:18 MCH 28 pg (28-32) 04/16/19 04:18 MCHC 32 % (32-34) 04/16/19 04:18 RDW 19.6 % (13.2-15.2) H 04/16/19 04:18 Plt Count 220 K/mm3 (140-440) 04/16/19 04:18 Add Manual Diff Complete 04/16/19 04:18 Total Counted 100 04/16/19 04:18 Seg Neuts % (Manual) 68.0 % (40.0-70.0) 04/16/19 04:18 1.0 % 04/16/19 04:18 23.0 % (13.4-35.0) 04/16/19 04:18 Reactive Lymphs % (Man) 0 % 04/16/19 04:18 8.0 % (0.0-7.3) H 04/16/19 04:18 0 % (0.0-4.3) 04/16/19 04:18 0 % (0.0-1.8) 04/16/19 04:18 0 % 04/16/19 04:18 0 % 04/16/19 04:18 0 % 04/16/19 04:18 0 % 04/16/19 04:18 Nucleated RBC % Not Reportable 04/16/19 04:18 Seg Neutrophils # Man 2.7 K/mm3 (1.8-7.7) 04/16/19 04:18 Band Neutrophils # 0.0 K/mm3 04/16/19 04:18 0.9 K/mm3 (1.2-5.4) L 04/16/19 04:18 Abs React Lymphs (Man) 0.0 K/mm3 04/16/19 04:18 0.3 K/mm3 (0.0-0.8) 04/16/19 04:18 0.0 K/mm3 (0.0-0.4) 04/16/19 04:18 0.0 K/mm3 (0.0-0.1) 04/16/19 04:18 0.0 K/mm3 04/16/19 04:18 0.0 K/mm3 04/16/19 04:18 0.0 K/mm3 04/16/19 04:18 Blast Cells # 0.0 K/mm3 04/16/19 04:18 WBC Morphology Not Reportable 04/16/19 04:18 Hypersegmented Neuts Not Reportable 04/16/19 04:18 Hyposegmented Neuts Not Reportable 04/16/19 04:18 Hypogranular Neuts Not Reportable 04/16/19 04:18 Not Reportable 04/16/19 04:18 Not Reportable 04/16/19 04:18 Not Reportable 04/16/19 04:18 Not Reportable 04/16/19 04:18 Not Reportable 04/16/19 04:18 Not Reportable 04/16/19 04:18 Consistent w auto 04/16/19 04:18 Not Reportable 04/16/19 04:18 Plt Clumps, EDTA Not Reportable 04/16/19 04:18 Not Reportable 04/16/19 04:18 Not Reportable 04/16/19 04:18 Not Reportable 04/16/19 04:18 Plt Morphology Comment Not Reportable 04/16/19 04:18 RBC Morphology Not Reportable 04/16/19 04:18 Dimorphic RBCs Not Reportable 04/16/19 04:18 Not Reportable 04/16/19 04:18 Not Reportable 04/16/19 04:18 Not Reportable 04/16/19 04:18 1+ 04/16/19 04:18 Not Reportable 04/16/19 04:18 Not Reportable 04/16/19 04:18 Not Reportable 04/16/19 04:18 Not Reportable 04/16/19 04:18 Not Reportable 04/16/19 04:18 Not Reportable 04/16/19 04:18 Not Reportable 04/16/19 04:18 Not Reportable 04/16/19 04:18 Rare 04/16/19 04:18 Not Reportable 04/16/19 04:18 Not Reportable 04/16/19 04:18 Not Reportable 04/16/19 04:18 Not Reportable 04/16/19 04:18 Not Reportable 04/16/19 04:18 Not Reportable 04/16/19 04:18 Few 04/16/19 04:18 Acanthocytes (Spur) Not Reportable 04/16/19 04:18 Rouleaux Not Reportable 04/16/19 04:18 Not Reportable 04/16/19 04:18 Not Reportable 04/16/19 04:18 Not Reportable 04/16/19 04:18 Not Reportable 04/16/19 04:18 Hem Pathologist Commnt No 04/16/19 04:18 PT 17.1 Sec. (12.2-14.9) H 04/14/19 14:01 INR 1.43 (0.87-1.13) H 04/14/19 14:01 APTT 32.7 Sec. (24.2-36.6) 04/14/19 14:01 3206.17 ng/mlDDU (0-234) H 04/14/19 14:01 Sodium 141 mmol/L (137-145) 04/16/19 04:18 Potassium 3.7 mmol/L (3.6-5.0) 04/17/19 05:22 Chloride 102.6 mmol/L (98-107) 04/16/19 04:18 Carbon Dioxide 29 mmol/L (22-30) 04/16/19 04:18 13 mmol/L 04/16/19 04:18 BUN 19 mg/dL (9-20) 04/16/19 04:18 1.0 mg/dL (0.8-1.5) 04/16/19 04:18 Estimated GFR > 60 ml/min 04/16/19 04:18 19 % 04/16/19 04:18 Glucose 104 mg/dL (75-100) H 04/16/19 04:18 POC Glucose 118 (70-105) H 04/15/19 12:45 Calcium 7.7 mg/dL (8.4-10.2) L 04/16/19 04:18 Magnesium 2.00 mg/dL (1.7-2.3) 04/14/19 18:20 0.60 mg/dL (0.1-1.2) 04/14/19 14:01 AST 20 units/L (5-40) 04/14/19 14:01 ALT 11 units/L (7-56) 04/14/19 14:01 80 units/L (35-129) 04/14/19 14:01 NT-Pro-B Natriuret Pep 1944 pg/mL (0-900) H 04/14/19 14:01 5.9 g/dL (6.3-8.2) L 04/14/19 14:01 2.4 g/dL (3.9-5) L 04/14/19 14:01 0.7 % 04/14/19 14:01 Prostate Specific Ag < 0.01 ng/mL (0.00-4.00) 04/15/19 06:57 TSH 8.520 mlU/mL (0.270-4.200) H 04/14/19 18:20 Free T4 0.96 ng/dL (0.76-1.46) 04/15/19 06:00 Active Medications - Current Medications Current Medications: Generic Name Dose Route Start Last Admin Trade Name Freq PRN Reason Stop Dose Admin Acetaminophen 650 mg 04/14/19 17:50 Tylenol PO Q4H PRN Pain MILD(1-3)/Fever >100.5/GRIFFITHS Albuterol 2.5 mg 04/14/19 17:50 Proventil IH Q4H PRN Shortness Of Breath Carvedilol 25 mg 04/14/19 22:00 04/17/19 09:09 Coreg PO Not Given BID DANNIE Enoxaparin Sodium 40 mg 04/15/19 10:00 04/17/19 09:07 Lovenox SUB-Q 40 mg QDAY DANNIE Administration Ferrous Sulfate 325 mg 04/15/19 10:00 04/17/19 09:07 Feosol PO 325 mg DAILY DANNIE Administration Folic Acid 1 mg 04/15/19 10:00 04/17/19 09:07 Folvite PO 1 mg QDAY DANNIE Administration Furosemide 40 mg 04/18/19 10:00 Lasix PO QDAY DANNIE Ondansetron HCl 4 mg 04/14/19 17:50 Zofran IV Q8H PRN Nausea And Vomiting Sodium Chloride 10 ml 04/14/19 22:00 04/16/19 22:56 Sodium Chloride Flush Syringe 10 Ml IV 10 ml BID DANNIE Administration Sodium Chloride 10 ml 04/14/19 17:50 04/17/19 05:40 Sodium Chloride Flush Syringe 10 Ml IV 10 ml PRN PRN Administration LINE FLUSH Tamsulosin HCl 0.4 mg 04/15/19 10:00 04/17/19 09:07 Flomax PO 0.4 mg QDAY DANNIE Administration Tramadol HCl 50 mg 04/14/19 17:51 04/16/19 22:52 Ultram PO 50 mg Q4H PRN Administration Pain, Moderate
[2019-04-17] MEDS: SODIUM CHLORIDE FLUSH SYRINGE 10 ML IV SCH ×2 (19:58→21:41)
[2019-04-18] MEDS: LOVENOX SUB-Q SCH (09:03)
[2019-04-18] MEDS: COREG PO SCH (09:03)
[2019-04-18] MEDS: FLOMAX PO SCH (09:03)
[2019-04-18] MEDS: SODIUM CHLORIDE FLUSH SYRINGE 10 ML IV SCH (09:04)
[2019-04-18] MEDS: FEOSOL PO SCH (09:04)
[2019-04-18] MEDS: FOLVITE PO SCH (09:04)
[2019-04-18] MEDS ORDERED: LASIX PO SCH (10:00)
[2019-04-18 12:33] VITALS: BP 120/46
--- NOTE | 2019-04-18 14:25 | Progress Note ---
Assessment and Plan Acute heart failure, diastolic Chest x-ray in the hospital shows severe bilateral groundglass opacities in the lung aragon, questionable pulmonary edema, versus pulmonary fibrosis or an inflammatory pneumonitis. A repeat chest x-ray reports improvement in pulmonary congestion Echocardiogram on this presentation shows left ventricular ejection fraction 45-50%, mild aortic stenosis. RBBB, chronic Hypertension Anemia Recommendations: Medical therapy for diastolic heart failure. Stable cardiac roberts. Patient advised to follow up with his primary food trades assistants, Dr Ferrera, within 5-7 days. Subjective Date of service: 04/18/19 Interval history: Patient reports he is feeling better. He denies shortness of breath. Lower extremity edema has resolved. Objective Vital Signs Temp Pulse Pulse Resp Resp BP Pulse Ox 04/18/19 11:19 98.0 F 66 18 120/46 97 04/18/19 10:00 69 90 04/18/19 09:00 16 04/18/19 07:28 98.8 F 70 18 122/48 96 04/18/19 04:00 73 92 04/18/19 03:36 98.2 F 19 134/54 04/17/19 23:22 97.5 F L 81 20 137/48 92 04/17/19 22:25 79 18 94 04/17/19 21:41 79 119/47 04/17/19 19:21 99.2 F 79 19 119/47 94 04/17/19 19:15 87 04/17/19 16:08 98.7 F 79 18 130/50 94 - Physical Examination General: No Apparent Distress HEENT: Positive: PERRL Neck: Positive: trachea midline Cardiac: Positive: Reg Rate and Rhythm Lungs: Positive: Decreased Breath Sounds Neuro: Positive: Grossly Intact, Weakness Extremities: Absent: edema
--- NOTE | 2019-04-18 14:47 | Discharge Summary ---
Providers - Providers Date of Admission: 04/14/19 17:50 Date of discharge: 04/18/19 Attending physician: JORGE LUIS WHEELER 04/14/19 17:53 Consult to Physician [CONS] Routine Comment: Consulting Provider: LOYD GORDILLO Physician Instructions: Reason For Exam: chf 04/14/19 21:20 Consult to Case Management [CONS] Routine Services Needed at Discharge: Special Education Curriculum Specialist Notified:: case aide Additional Physician Instructions: D/C Planning Occupational Therapy Evaluate and Treat [CONS] Routine Comment: Reason For Exam: weakness Physical Therapy Evaluation and Treat [CONS] Routine Comment: Reason For Exam: deconditioning 04/15/19 06:56 Consult to Wound/ET Nurse [CONS] Routine Reason For Exam: wound eval Primary care physician: [facility] MD FRANCIE Hospitalization Condition: Fair Disposition: DC/[place]-06 HOME UNDER HOME HLTH - Discharge Diagnoses (1) Severe malnutrition Status: Acute Core Measure Documentation - Palliative Care Palliative Care/ Comfort Measures: Not Applicable - Core Measures Any of the following diagnoses?: heart failure - Heart Failure Discharge Requirements VERONICA/ARB for LVSD if EF <40%: Yes Beta leigh at discharge: Yes Exam - Constitutional Vitals: Temp Pulse Resp BP Pulse Ox 98.0 F 66 18 120/46 97 04/18/19 11:19 04/18/19 11:19 04/18/19 11:19 04/18/19 11:19 04/18/19 11:19 Plan Activity: advance as tolerated Diet: low fat, low cholesterol, low salt Plan of Treatment: 1.Follow up with PCP in 1 week. 2.Follow up with Dr. Ferrera in 1 week Assessment: 1.Acute on chronic systolic CHF Follow up with: FRANCIE MARTINEZPERRY MD MATEO [Primary Care Provider] - 3-5 Days Prescriptions: Furosemide [Lasix TAB] 40 mg PO QDAY #30 tablet
== END 2019-04-18 16:35 | disposition home health service (06) | DRG 291 ==
LOC: ED 13:00 → 4A 17:50
PROVIDERS: ADMIT Internal Medicine; ATTEND Internal Medicine
DX: I11.0 Hypertensive heart disease with heart failure (principal); E43 Unspecified severe protein-calorie malnutrition; C94.6 Myelodysplastic disease, not elsewhere classified; C61 Malignant neoplasm of prostate; E03.9 Hypothyroidism, unspecified; D64.9 Anemia, unspecified; I45.19 Other right bundle-branch block; I35.0 Nonrheumatic aortic (valve) stenosis; J84.10 Pulmonary fibrosis, unspecified; I50.43 Acute on chronic combined systolic (congestive) and diastolic (congestive) heart failure; E87.6 Hypokalemia; F03.90 Unspecified dementia, unspecified severity, without behavioral disturbance, psychotic disturbance, mood disturbance, and anxiety; Z96.612 Presence of left artificial shoulder joint; Z96.611 Presence of right artificial shoulder joint; M19.012 Primary osteoarthritis, left shoulder; M19.011 Primary osteoarthritis, right shoulder; Z90.49 Acquired absence of other specified parts of digestive tract; Z79.899 Other long term (current) drug therapy; Z86.718 Personal history of other venous thrombosis and embolism
CPT/HCPCS: 36415; 71045; 71275; 80048; 80053; 82962; 83735; 83880; 84132; 84153; 84439; 84443; 84481; 85007; 85025; 85379; 85610; 85730; 93306; 93970; 96374; G0378; J1650; J1940; Q9967

== ENCOUNTER 2019-06-16 10:03 | Emergency (ER) | payer MEDICARE, OTHER ==
--- NOTE | 2019-06-16 10:31 | Emergency Department Report ---
ED Abdominal Pain HPI - General Chief Complaint: Abdominal Pain Stated Complaint: ABD PAIN Time Seen by Provider: 06/16/19 10:17 Source: patient, family Mode of arrival: Ambulatory Limitations: Physical Limitation - History of Present Illness Initial Comments: 89-year-old male patient with history of hypertension, CHF, TIA, and prostate cancer presents from his long-term with complaints of BM to defecate times this morning. He denies prior days of constipation, hematochezia, black darks stools, nausea/vomiting or abdominal pain. He states he has tried to defecate twice today unsuccessfully. Patient and patient's also deny any narcotic pain medications. Patient recently placed on Levaquin for UTI. states patient had an episode of urinary retention Monday of this weekwas seen by urology that he follows with for years. Patient states he continues to have issues with dysuria and dribbling of the urine. He denies any back pain/injury, weakness in his legs, or loss of sensation in his legs. States that his urinary incontinence is chronic and due to his prostate issues. MD Complaint: other (constipation, dysuria) - Related Data Home Medications Medication Instructions Recorded Confirmed Last Taken Carvedilol [Coreg] 25 mg PO BID 12/29/16 04/14/19 01/09/19 09:00 Tamsulosin [Flomax] 0.4 mg PO QDAY 12/29/16 04/14/19 01/09/19 09:00 traMADol [Ultram 50 MG tab] 50 mg PO Q4HR PRN 08/07/17 04/14/19 Unknown Ferrous Sulfate [Iron 325 MG] 325 mg PO DAILY 01/10/19 04/14/19 01/09/19 09:00 Folic Acid [Folvite] 1 mg PO QDAY 01/10/19 04/14/19 01/09/19 09:00 Previous Rx's Medication Instructions Recorded Last Taken Type Furosemide [Lasix TAB] 40 mg PO QDAY #30 tablet 04/18/19 Unknown Rx Cefuroxime Axetil [Ceftin] 250 mg PO Q12H 5 Days #10 ml 06/16/19 Unknown Rx Allergies Allergy/AdvReac Type Severity Reaction Status Date / Time No Known Allergies Allergy Verified 01/09/19 14:02 ED Review of Systems ROS: Stated complaint: ABD PAIN Other details as noted in HPI Comment: All other systems reviewed and negative Gastrointestinal: constipation. denies: abdominal pain, nausea, vomiting, diarrhea, hematemesis, melena, hematochezia Genitourinary: as per HPI ED Past Medical Hx - Past Medical History Previous Medical History?: Yes Hx Hypertension: Yes Hx CVA: No Hx Congestive Heart Failure: Yes Hx Diabetes: No Hx Deep Vein Thrombosis: Yes Hx Arthritis: Yes (left shoulder 2 replacements and right shoulder 1 replacement) Hx Seizures: No Hx Asthma: No Hx Dementia: Yes Additional medical history: PROSTATE CA STATUS POST RADIATION. Mye loproliferative disorder - Surgical History Past Surgical History?: Yes Hx Appendectomy: Yes Additional Surgical History: BILATERAL ROTATOR CUFF REPAIR - Social History Smoking Status: Never Smoker Substance Use Type: Prescribed - Medications Home Medications: Home Medications Medication Instructions Recorded Confirmed Last Taken Type Carvedilol [Coreg] 25 mg PO BID 12/29/16 04/14/19 01/09/19 09:00 History Tamsulosin [Flomax] 0.4 mg PO QDAY 12/29/16 04/14/19 01/09/19 09:00 History traMADol [Ultram 50 MG tab] 50 mg PO Q4HR PRN 08/07/17 04/14/19 Unknown History Ferrous Sulfate [Iron 325 MG] 325 mg PO DAILY 01/10/19 04/14/19 01/09/19 09:00 History Folic Acid [Folvite] 1 mg PO QDAY 01/10/19 04/14/19 01/09/19 09:00 History Furosemide [Lasix TAB] 40 mg PO QDAY #30 tablet 04/18/19 Unknown Rx Cefuroxime Axetil [Ceftin] 250 mg PO Q12H 5 Days #10 ml 06/16/19 Unknown Rx ED Physical Exam - General Limitations: Physical Limitation General appearance: alert, in no apparent distress - Head Head exam: Present: atraumatic, normocephalic - Eye Eye exam: Present: normal appearance - Neck Neck exam: Present: normal inspection - Respiratory Respiratory exam: Present: normal lung sounds bilaterally. Absent: respiratory distress - Cardiovascular Cardiovascular Exam: Present: regular rate, normal rhythm. Absent: systolic murmur, diastolic murmur, rubs, gallop - GI/Abdominal GI/Abdominal exam: Present: soft, normal bowel sounds. Absent: distended, ten derness, guarding, rebound, rigid, mass, hernia - Rectal Rectal exam: Absent: fecal impaction, hemorrhoids, mass, tenderness - Extremities Exam Extremities exam: Present: normal inspection, other (normal strength and sensa tion noted of LEs bilaterally ) - Back Exam Back exam: Present: normal inspection. Absent: paraspinal tenderness, vertebral tenderness - Neurological Exam Neurological exam: Present: alert, oriented X3 - Psychiatric Psychiatric exam: Present: normal affect, normal mood - Skin Skin exam: Present: warm, dry, intact, normal color. Absent: rash ED Course Vital Signs 06/16/19 06/16/19 10:06 11:39 Temperature 98.1 F 98 F Pulse Rate 84 Respiratory 16 18 Rate Blood Pressure 126/62 Blood Pressure 139/89 [Left] O2 Sat by Pulse 96 100 Oximetry ED Medical Decision Making - Lab Data Result diagrams: 06/16/19 10:47 06/16/19 10:47 Lab Results 06/16/19 06/16/19 06/16/19 Range/Units 10:47 10:47 11:39 WBC 4.7 (4.5-11.0) K/mm3 RBC 3.43 L (3.65-5.03) M/mm3 Hgb 9.5 L (11.8-15.2) gm/dl Hct 29.1 L (35.5-45.6) % MCV 85 (84-94) fl MCH 28 (28-32) pg MCHC 33 (32-34) % RDW 19.4 H (13.2-15.2) % Plt Count 299 (140-440) K/mm3 Add Manual Diff Complete Total Counted 100 Seg Neuts % (Manual) 70.0 (40.0-70.0) % Band Neutrophils % 5.0 % Lymphocytes % (Manual) 18.0 (13.4-35.0) % Reactive Lymphs % (Man) 1.0 % Monocytes % (Manual) 5.0 (0.0-7.3) % Eosinophils % (Manual) 1.0 (0.0-4.3) % Basophils % (Manual) 0 (0.0-1.8) % Metamyelocytes % 0 % Myelocytes % 0 % Promyelocytes % 0 % Blast Cells % 0 % Nucleated RBC % Not Reportable Seg Neutrophils # Man 3.3 (1.8-7.7) K/mm3 Band Neutrophils # 0.2 K/mm3 Lymphocytes # (Manual) 0.8 L (1.2-5.4) K/mm3 Abs React Lymphs (Man) 0.0 K/mm3 Monocytes # (Manual) 0.2 (0.0-0.8) K/mm3 Eosinophils # (Manual) 0.0 (0.0-0.4) K/mm3 Basophils # (Manual) 0.0 (0.0-0.1) K/mm3 Metamyelocytes # 0.0 K/mm3 Myelocytes # 0.0 K/mm3 Promyelocytes # 0.0 K/mm3 Blast Cells # 0.0 K/mm3 WBC Morphology Not Reportable Hypersegmented Neuts Not Reportable Hyposegmented Neuts Not Reportable Hypogranular Neuts Not Reportable Smudge Cells Not Reportable Toxic Granulation Not Reportable Toxic Vacuolation Not Reportable Dohle Bodies Not Reportable Pelger-Huet Anomaly Not Reportable Gloria Rods Not Reportable Platelet Estimate Consistent w auto Clumped Platelets Not Reportable Plt Clumps, EDTA Not Reportable Large Platelets Not Reportable Giant Platelets Not Reportable Platelet Satelliting Not Reportable Plt Morphology Comment Not Reportable RBC Morphology Not Reportable Dimorphic RBCs Not Reportable Polychromasia Not Reportable Hypochromasia Not Reportable Poikilocytosis Not Reportable Anisocytosis Not Reportable Microcytosis Not Reportable Macrocytosis Not Reportable Spherocytes Not Reportable Pappenheimer Bodies Not Reportable Sickle Cells Not Reportable Target Cells Not Reportable Tear Drop Cells Not Reportable Ovalocytes Not Reportable Helmet Cells Not Reportable [place] English Bodies Not Reportable Hidalgo Rings Not Reportable Agnieszka Cells Not Reportable Bite Cells Not Reportable Crenated Cell Not Reportable Elliptocytes 1+ Acanthocytes (Spur) Not Reportable Rouleaux Not Reportable Hemoglobin C Crystals Not Reportable Schistocytes Not Reportable Malaria parasites Not Reportable Robbin Bodies Not Reportable Hem Pathologist Commnt No Sodium 142 (137-145) mmol/L Potassium 4.5 (3.6-5.0) mmol/L Chloride 103.6 (98-107) mmol/L Carbon Dioxide 23 (22-30) mmol/L Anion Gap 20 mmol/L BUN 28 H (9-20) mg/dL Creatinine 1.1 (0.8-1.5) mg/dL Estimated GFR > 60 ml/min BUN/Creatinine Ratio 25 % Glucose 112 H (75-100) mg/dL Calcium 8.7 (8.4-10.2) mg/dL Total Bilirubin 0.50 (0.1-1.2) mg/dL AST 39 (5-40) units/L ALT 21 (7-56) units/L Alkaline Phosphatase 86 (35-129) units/L Total Protein 6.9 (6.3-8.2) g/dL Albumin 2.9 L (3.9-5) g/dL Albumin/Globulin Ratio 0.7 % Urine Color Yellow (Yellow) Urine Turbidity Clear (Clear) Urine pH 6.0 (5.0-7.0) Ur Specific [place] 1.011 (1.003-1.030) Urine Protein <15 mg/dl (Negative) mg/dL Urine Glucose (UA) Neg (Negative) mg/dL Urine Ketones Neg (Negative) mg/dL Urine Blood Neg (Negative) Urine Nitrite Neg (Negative) Urine Bilirubin Neg (Negative) Urine Urobilinogen < 2.0 (<2.0) mg/dL Ur Leukocyte Esterase Sm (Negative) Urine WBC (Auto) 35.0 H (0.0-6.0) /HPF Urine RBC (Auto) 10.0 (0.0-6.0) /HPF Hyaline Casts 4 /LPF Urine Mucus Few /HPF - Radiology Data Radiology results: report reviewed ABDOMEN 1 VIEW INDICATION / CLINICAL INFORMATION: Constipation. COMPARISON: CT dated 01/10/19 FINDINGS: TUBES / LINES: None. BOWEL GAS PATTERN: No dilated small or large bowel. Moderate amount of fecal material in the ascending and transverse colon. FREE AIR / EXTRALUMINAL GAS: None seen. ADDITIONAL FINDINGS: Bibasilar interstitial fibrosis appears unchanged. IMPRESSION: 1. No bowel obstruction. 2. Moderate amount of fecal material in the ascending and transverse colon. - Medical Decision Making 89-year-old male patient here with complaints of constipation times one day also complaining of continued dysuria despite being on Levaquin for a recent UTI. Patient denies any abdominal pain and abdominal exam was without acute findings. KUB shows moderate amount of stool in colon. No fecal impaction noted on rectal exam. He shouldn't vitals are WNL. We will treat UTI with Ceftin given failure on Levaquin. Urine culture sent. Recommend patient to take OTC MiraLAX with follow-up with his urologist and primary care doctor in 2-3 days. Patient and instructed to return to the ED if new or worsening symptoms. Critical care attestation.: If time is entered above; I have spent that time in minutes in the direct care of this critically ill patient, excluding procedure time. ED Disposition Clinical Impression: UTI (urinary tract infection), Constipation Disposition: TO HOME OR SELFCARE Is pt being admited?: No Condition: Good Instructions: Constipation (ED), Urinary Tract Infection in Men (ED) Additional Instructions: Please follow up with your urology within 2-3 days. For your constipation, please take over the counter Miralax as needed. Return to the emergency department if there are any new or worsening symptoms. Prescriptions: Cefuroxime Axetil [Ceftin] 250 mg PO Q12H 5 Days #10 ml Referrals: PRIMARY CARE, [Referring] - 3-5 Days
[2019-06-16 11:28] LABS: Hematocrit 29.1 % (35.5-45.6); Hemoglobin 9.5 gm/dl (11.8-15.2); Mean Corpuscular HGB Conc 33 % (32-34); Mean Corpuscular Volume 85 fl (84-94); Platelet Count 299 K/mm3 (140-440); Red Blood Count 3.43 M/mm3 (3.65-5.03); Red Cell Distribution Width 19.4 % (13.2-15.2)
[2019-06-16 11:30] LABS: Alanine Aminotransferase 21 units/L (7-56); Albumin 2.9 g/dL (3.9-5); BUN/Creatinine Ratio 25; Blood Urea Nitrogen 28 mg/dL (9-20); Calcium 8.7 mg/dL (8.4-10.2); Hemolysis Index 89
[2019-06-16 12:03] LABS: Bilirubin,Urine NEG (Negative); Blood,Urine NEG (Negative); Color,Urine Yellow (Yellow); Hyaline Casts,Urine 4 /LPF; Mucus,Urine FEW /HPF; Protein,Urine <15 mg/dL mg/dL (Negative); Urobilinogen,Urine < 2.0 mg/dL (<2.0)
--- NOTE | 2019-06-16 12:22 | XRay Report ---
ABDOMEN 1 VIEW INDICATION / CLINICAL INFORMATION: Constipation. COMPARISON: CT dated 01/10/19 FINDINGS: TUBES / LINES: None. BOWEL GAS PATTERN: No dilated small or large bowel. Moderate amount of fecal material in the ascendin g and transverse colon. FREE AIR / EXTRALUMINAL GAS: None seen. ADDITIONAL FINDINGS: Bibasilar interstitial fibrosis appears unchanged. IMPRESSION: 1. No bowel obstruction. 2. Moderate amount of fecal material in the ascending and transverse colon. Signer Name: Oni Bunn MD Signed: 06/16/2019 12:17 PM Workstation Name: [id number]
[2019-06-16 13:24] LABS: Band Neutrophils # (Manual) 0.2 K/mm3; Basophils % (Manual) 0 % (0.0-1.8); Total Cells Counted 100
[2019-06-16 13:26] LABS: Platelet Estimate Consistent w Auto
[2019-06-16 15:06] VITALS: BP 135/80
== END 2019-06-16 15:08 | disposition home or self-care (01) ==
LOC: ED 10:03
DX: N39.0 Urinary tract infection, site not specified (principal); K59.00 Constipation, unspecified; I50.9 Heart failure, unspecified; I11.0 Hypertensive heart disease with heart failure; M19.012 Primary osteoarthritis, left shoulder; M19.011 Primary osteoarthritis, right shoulder
CPT/HCPCS: 36415; 74018; 80053; 81001; 85007; 85025; 87086

== ENCOUNTER 2020-06-17 19:27 | Emergency (ER) | payer MEDICARE, OTHER ==
--- NOTE | 2020-06-17 19:45 | Emergency Department Report ---
ED Abdominal Pain HPI - General Chief Complaint: Abdominal Pain Stated Complaint: ABDOMINAL PAIN X 1DAY PUI?: No Time Seen by Provider: 06/17/20 19:42 Source: patient, EMS Mode of arrival: Stretcher Limitations: No Limitations - History of Present Illness Initial Comments: Patient is an 89-year-old male that presents emergency room with complaints of lower abdominal pain. Patient also states he has not peed since 10 PM yester day. Patient states prior to that he was only peeing a very small amount. Patient states she has a history of BPH and urinary retention. Patient states his abdominal pain is a 6 out of 10. Patient takes better with rest and worse with palpation and movement. Patient denies nausea and vomiting. Patient denies constipation. Patient denies blood in his stool. Patient denies fever and chills. Patient denies cough. Patient denies chest pain or shortness of breath. Patient denies recent travel. Patient denies recent international travel. Patient denies exposure to the novel coronavirus. Patient denies sick contacts. Patient denies fever and chills. Patient denies cough. Patient denies diarrhea. Patient denies coming in contact with anybody with symptoms of the novel coronavirus. MD Complaint: abdominal pain -: Sudden Location: suprapubic Radiation: none Migration to: no migration Severity: severe Severity scale (0 -10): 6 Quality: stabbing Consistency: constant Improves With: rest Worsens With: movement Associated Symptoms: denies: nausea, vomiting, diarrhea, fever, chills, constipation, hematemesis, hematochezia, melena, hematuria, anorexia, syncope - Related Data Home Medications Medication Instructions Recorded Confirmed Last Taken Tamsulosin [Flomax] 0.4 mg PO QDAY 12/29/16 04/14/19 01/09/19 09:00 carvediloL [Coreg] 25 mg PO BID 12/29/16 04/14/19 01/09/19 09:00 traMADoL [Ultram 50 MG tab] 50 mg PO Q4HR PRN 08/07/17 04/14/19 Unknown Ferrous Sulfate [Iron 325 MG] 325 mg PO DAILY 01/10/19 04/14/19 01/09/19 09:00 Folic Acid [Folvite] 1 mg PO QDAY 01/10/19 04/14/19 01/09/19 09:00 Previous Rx's Medication Instructions Recorded Last Taken Type Furosemide [Lasix TAB] 40 mg PO QDAY #30 tablet 04/18/19 Unknown Rx Cefuroxime Axetil [Ceftin] 250 mg PO Q12H 5 Days #10 ml 06/16/19 Unknown Rx Ciprofloxacin HCl [Ciprofloxacin 500 mg PO Q12HR #14 tab 06/18/19 Unknown Rx TAB] Allergies Allergy/AdvReac Type Severity Reaction Status Date / Time No Known Allergies Allergy Verified 01/09/19 14:02 ED Review of Systems ROS: Stated complaint: ABDOMINAL PAIN X 1DAY Other details as noted in HPI Constitutional: denies: chills, fever Eyes: denies: eye pain, eye discharge, vision change ENT: denies: ear pain, throat pain Respiratory: denies: cough, shortness of breath, wheezing Cardiovascular: denies: chest pain, palpitations Endocrine: no symptoms reported Gastrointestinal: abdominal pain. denies: nausea, diarrhea Genitourinary: as per HPI, frequency. denies: urgency, dysuria Musculoskeletal: denies: back pain, joint swelling, arthralgia Skin: denies: rash, lesions Neurological: denies: headache, weakness, paresthesias Psychiatric: denies: anxiety, depression Hematological/Lymphatic: denies: easy bleeding, easy bruising ED Past Medical Hx - Past Medical History Previous Medical History?: Yes Hx Hypertension: Yes Hx CVA: No Hx Congestive Heart Failure: Yes Hx Diabetes: No Hx Deep Vein Thrombosis: Yes Hx Liver Disease: No Hx Renal Disease: No Hx Arthritis: Yes (left shoulder 2 replacements and right shoulder 1 replacement) Hx Seizures: No Hx Asthma: No Hx Dementia: Yes Additional medical history: PROSTATE CA STATUS POST RADIATION. Myeloproliferative disorder - Surgical History Past Surgical History?: Yes Hx Appendectomy: Yes Additional Surgical History: BILATERAL ROTATOR CUFF REPAIR - Family History Family history: no significant - Social History Smoking Status: Never Smoker Substance Use Type: Prescribed - Medications Home Medications: Home Medications Medication Instructions Recorded Confirmed Last Taken Type Tamsulosin [Flomax] 0.4 mg PO QDAY 12/29/16 04/14/19 01/09/19 09:00 History carvediloL [Coreg] 25 mg PO BID 12/29/16 04/14/19 01/09/19 09:00 History traMADoL [Ultram 50 MG tab] 50 mg PO Q4HR PRN 08/07/17 04/14/19 Unknown History Ferrous Sulfate [Iron 325 MG] 325 mg PO DAILY 01/10/19 04/14/19 01/09/19 09:00 History Folic Acid [Folvite] 1 mg PO QDAY 01/10/19 04/14/19 01/09/19 09:00 History Furosemide [Lasix TAB] 40 mg PO QDAY #30 tablet 04/18/19 Unknown Rx Cefuroxime Axetil [Ceftin] 250 mg PO Q12H 5 Days #10 ml 06/16/19 Unknown Rx Ciprofloxacin HCl [Ciprofloxacin 500 mg PO Q12HR #14 tab 06/18/19 Unknown Rx TAB] ED Physical Exam - General Limitations: No Limitations General appearance: alert, in no apparent distress - Head Head exam: Present: atraumatic, normocephalic - Eye Eye exam: Present: normal appearance - ENT ENT exam: Present: mucous membranes moist - Neck Neck exam: Present: normal inspection - Respiratory Respiratory exam: Present: normal lung sounds bilaterally. Absent: respiratory distress, wheezes, rales - Cardiovascular Cardiovascular Exam: Present: regular rate, normal rhythm. Absent: systolic murmur, diastolic murmur, rubs, gallop - GI/Abdominal GI/Abdominal exam: Present: soft, tenderness (Suprapubic tenderness. Palpable bladder), normal bowel sounds - Rectal Rectal exam: Present: deferred - Extremities Exam Extremities exam: Present: normal inspection - Back Exam Back exam: Present: normal inspection - Neurological Exam Neurological exam: Present: alert, oriented X3 - Psychiatric Psychiatric exam: Present: normal affect, normal mood - Skin Skin exam: Present: warm, dry, intact, normal color. Absent: rash ED Course Vital Signs 06/17/20 20:22 Temperature 98 F Pulse Rate 81 Respiratory 22 Rate Blood Pressure 178/75 [Right] O2 Sat by Pulse 99 Oximetry - Reevaluation(s) Reevaluation #1: Nurse instructed to place a Nava. 06/17/20 19:45 Reevaluation #2: See procedure note. I attempted multiple times to pass a catheter but the patient's prostate did not allow to pass. I will consult urology at another facility. This facility does not have urology at this time. 06/17/20 21:03 Reevaluation #3: I discussed all results and clinical findings with patient. I discussed plan of care with patient. Patient agrees with plan of care and transfer. Patient is medically stable for transport.. 06/17/20 21:32 - Consultations Consultation #1: Urology paged at [facility]. 06/17/20 21:10 I discussed with urology, Dr. Chamberlain. Dr. Alas wants the patient be transferred ER to ER so I will discussed the case with an ER attending 06/17/20 21:[address] Verdugo, ER attending. Dr. Verdugo accepted the patient to be transferred ER to ER. Patient will be transferred to [facility]. 06/17/20 21:42 - Catheter Insertion (Urinary) Indications: to alleviate urinary retention Prophylactic Antibiotics Given: No Bladder Scan/US before Catherization: No Preparation: Providone-Iodine Type of Catheter Inserted: Nava, coude tip Results: unable to pass Patient Tolerated Procedure: no complications Complications: pain, trauma to meatus/urethra noted Additional Comments: Multiple attempts were made to catheterize the patient. The nurse use a standard 16 [place] Nava which would not pass. I then ordered the cystoscopy/urology cart. I then attempted a 12 [place] coud that would not pass. I also attempted a 14 [place], 12 [place], 10 [place]ian and an 8 [place] catheter that were unable to pass. ED Medical Decision Making - Lab Data Result diagrams: 06/17/20 20:03 06/17/20 20:03 - Medical Decision Making Patient is an 89-year-old male that presents emergency room with complaints of urinary retention for essentially 24 hours. Patient complained of suprapubic abdominal pain. Patient noted to have a distended bladder on exam. Patient has a history of BPH prostate disorders. Patient has had cath in the past. The nurse attempted to pass a standard Nava. The nurse was unable to pass a standard Nava. I then ordered a cysto cart. I personally attempted to pass multiple catheters, see procedure note. I was unsuccessful to catheterize this patient. This facility does not have urologic backup or urology on-call. I then consulted at [facility]. [facility] accepted the patient to be transferred ER to ER. I also discussed the case with the ER attending and he also accepted the patient be transferred ER to ER. Patient had labs done. Patient's labs are significant for acute renal failure. Patient is stable for transport. Patient's vital signs are stable. Patient transported via EMS to [facility] ER. - Differential Diagnosis Urinary retention, abdominal pain, obstructive nephropathy, renal failure Critical Care Time: Yes Critical care time in (mins) excluding proc time.: 80 Critical care attestation.: If time is entered above; I have spent that time in minutes in the direct care of this critically ill patient, excluding procedure time. Critical Care Time: 80 minutes ED Disposition Clinical Impression: Urinary retention due to benign prostatic hyperplasia Acute renal failure Qualifiers: Acute renal failure type: unspecified Qualified Code(s): N17.9 - Acute kidney failure, unspecified Abdominal pain Qualifiers: Abdominal location: lower abdomen, unspecified Qualified Code(s): R10.30 - Lower abdominal pain, unspecified Anemia Qualifiers: Anemia type: unspecified type Qualified Code(s): D64.9 - Anemia, unspecified Disposition: DC/TX-70 ANOTHER TYPE HLTHCARE Is pt being admited?: No Does the pt Need Aspirin: No Condition: Critical Time of Disposition: 21:45
[2020-06-17 20:22] VITALS: BP 178/75
[2020-06-17 20:40] LABS: Hematocrit 31.9 % (35.5-45.6); Hemoglobin 10.7 gm/dl (11.8-15.2); Mean Corpuscular HGB Conc 34 % (32-34); Mean Corpuscular Volume 92 fl (84-94); Platelet Count 227 K/mm3 (140-440); Red Blood Count 3.47 M/mm3 (3.65-5.03); Red Cell Distribution Width 19.5 % (13.2-15.2)
[2020-06-17 20:53] LABS: Albumin 3.6 g/dL (3.9-5)
== END 2020-06-17 22:30 | disposition other institution (70) ==
LOC: ED 19:27
DX: N17.9 Acute kidney failure, unspecified (principal); D29.1 Benign neoplasm of prostate; D64.9 Anemia, unspecified; R10.30 Lower abdominal pain, unspecified; R33.9 Retention of urine, unspecified; I11.0 Hypertensive heart disease with heart failure; I50.9 Heart failure, unspecified; M13.812 Other specified arthritis, left shoulder; F03.90 Unspecified dementia, unspecified severity, without behavioral disturbance, psychotic disturbance, mood disturbance, and anxiety; Z90.49 Acquired absence of other specified parts of digestive tract; Z98.890 Other specified postprocedural states; Z79.2 Long term (current) use of antibiotics; Z79.899 Other long term (current) drug therapy
CPT/HCPCS: 36415; 51702; 80053; 85027; 99292